=== PATIENT | female | born 1940 | race Caucasian/White ===

== ENCOUNTER 2017-08-02 02:12 | Inpatient (IN) | payer OTHER ==
[~2017-08-02] VITALS: Ht 144.8 cm; Wt 51.4 kg
[~2017-08-02 02:12] MED LIST: CARDURA1 M1 PO; CLONIDINE HCL0.3 M1 PO; COREG3.125 MG PO; CRESTOR20 M2 PO; ELIQUIS2.5 M1 PO; ISOSORBIDE MON120 M1 PO; LASIX20 M1 PO; NORVASC10 M1 PO; PLAQUENIL200 M1 PO; PROTONIX40 M3 PO; VALSARTAN160 M1 PO
--- NOTE | 2017-08-02 11:17 | Operative Report ---
Operative/Inv Procedure Report Surgery Date: 08/02/17 Name of Procedure: Left carotid thromboendarterectomy with bovine patch angioplasty Pre-Operative Diagnosis: Asymptomatic high-grade bilateral carotid artery stenosis Post-Operative Diagnosis: Same Estimated Blood Loss: less than 50ml Surgeon/Drier Transfer Car Operator: Eduardo Mcfarlane MD, Huribal MD, Marsel Anesthesia: general endotracheal tube Implants: Bovine pericardial patch Complications: Patient transported neurologically intact to PACU -with elevation in blood pressure Condition: Stable to PACU Operative Indication: This is a 77-year-old female with past medical history significant for hypertension and bilateral carotid stenosis. She is here for left carotid endarterectomy. The patient is right-handed. She denies any focal neurologic events recently. Risk benefits and alternatives were explained to the patient including bleeding infection plane stroke and and neurologic/nerve injury. She decide to proceed with the procedure and consented after these risks were explained to her. Operative/Procedure Note Note: The patient was transported to the recovery room and laid supine on the table. After adequate anesthesia, IV lines, a timeout was held in accordance with [facility] policy. Of note a second surgeon was required due to the lack of suitable resident's/PA and the comorbidity of this patient's bilateral carotid disease. Attention was first turned to cervical block. This had been placed by the anesthesia department. Using a 15 blade and bovie electrocautery/dissection was carried down through the skin and subcutaneous tissue to the level of the carotid sheath. During this time the patient was noted to be extremely hypertensive and began to feel nauseous. Due to her discomfort the decision was made to convert her to general anesthesia. This was done expeditiously and the case proceeded. Once the dissection had been carried out the patient was bolused with 5000 units of heparin. The common carotid, external carotid, and internal carotid were circumferentially dissected free and controlled. The artery was sequentially clamped and the blood pressure was kept at 170 mmHg during the endarterectomy stage. The artery was then opened with an 11 blade and Paez scissors. Backbleeding from the internal carotid artery was noted to be excellent. Using a Dunlevy elevator the plaque was elevated and excised from the field. It was passed off as specimen. Attention was now turned to closure of the artery. Intimal debris was removed with ring forceps and the Dunlevy elevator. Heparin saline was used to irrigate the artery. A bovine pericardial patch was then brought into the surgical area and sewn on the anterior surface of the artery. A running 6-0 Prolene suture was used in a circumferential manner and tied down sequentially. All occluding clamps were removed and the artery was properly flushed. Good pulsatile flow was now confirmed into the distal ICA by Doppler. 3 single Prolene sutures were used for hemostasis. Gelfoam and thrombin as well as FloSeal were used to gain hemostasis. The wound was copiously irrigated with saline solution. The wound was then closed in layers with 2-0 and 3-0 Vicryl sutures. The skin was closed with skin priscila. The patient tolerated the procedure well and was transported to the recovery area in stable awake and alert. The sponge needle instrument counts were correct and cardiology will be consult due to the patient's blood pressure control. CC: Reid WELLS,Tom Monk; Jorge Luis Harris MD
[2017-08-02 12:00] VITALS: BP 200/66
--- NOTE | 2017-08-02 12:32 | Cons- Cardiology ---
General Information and HPI Consulting Request Date of Consult: 08/02/17 Requested By: Eduardo Mcfarlane MD Reason for Consult: uncontrolled hypertension History of Present Illness: the patient is a 77-year-old female with history of hypertension, paroxysmal atrial fibrillation, HFpEF, and sinus bradycardia who is status post left carotid thromboendarterectomy with bovine patch angioplasty. She has a 6 history of severe hypertension on multiple medications. Postoperatively she was noted to have significant hypertension with systolic blood pressure of 200. She took her normal p.o. medications this morning before surgery. She was started on a nitroglycerin drip in the PACU, and was transferred to the intensive care unit. She reports that she is feeling well. No chest pain. No palpitations. No lightheadedness or dizziness. No nausea or vomiting. No diaphoresis. Allergies/Medications Allergies: Coded Allergies: diltiazem (From CARDIZEM) (UNKNOWN 07/30/17) dronedarone (From MULTAQ) (SEVERE DIARRHEA 07/30/17) hydralazine (LUPUS 07/30/17) lisinopril (TONGUE SWELLING 07/30/17) rivaroxaban (From XARELTO) (UNKNOWN 07/30/17) minoxidil (HIRSUTISM 08/08/17) Home Med List: Amlodipine Besylate (Norvasc) 10 MG TABLET 1 TAB PO DAILY HTN (Reported) Apixaban (Eliquis) 2.5 MG TABLET 1 TAB PO BID ANTICOAG (Reported) Carvedilol (Coreg) 3.125 MG TABLET 1 TAB PO BID CARDIAC (Reported) Clonidine HCl 0.3 MG TABLET 1 TAB PO BID HTN (Reported) Doxazosin (Cardura) 1 MG TABLET 2 TAB PO BID HTN (Reported) Furosemide (Lasix) 20 MG TABLET 1 TAB PO DAILY DIURETIC (Reported) Furosemide (Lasix) 40 MG TABLET 40 MG PO DAILY DIURETIC PER DR. HOLLIDAY Hydroxychlorquine (Plaquenil) 200 MG TABLET 1 TAB PO DAILY LUPUS (Reported) Isosorbide Mononitrate (Isosorbide Mononitrate ER) 120 MG TAB.ER.24H 1 TAB PO DAILY HTN (Reported) Minoxidil 2.5 MG TABLET 2.5 MG PO DAILY htn PER DR. HOLLIDAY Pantoprazole Sodium (Protonix) 40 MG TABLET.DR 1 TAB PO DAILY GERD (Reported) Rosuvastatin Calcium (Crestor) 20 MG TABLET 1 TAB PO DAILY CHOLESTEROL ( Reported) Sertraline HCl (Zoloft) 25 MG TABLET 1 TAB PO DAILY DEP (Reported) Valsartan 160 MG TABLET 1 TAB PO BID HTN (Reported) Current Medications: Current Medications Sig/Antoinette Start time Last Medication Dose Route Stop Time Status Admin Acetaminophen 1,000 MG Q6 08/02 1200 AC 08/02 IV 08/03 0601 1327 Amlodipine Besylate 10 MG DAILY 08/03 1000 DC PO Amlodipine Besylate 10 MG DAILY 08/03 1000 AC PO Apixaban 2.5 MG BID 08/03 1000 DC PO Apixaban 2.5 MG BID 08/03 1000 AC PO Aspirin 300 MG ONCE ONE 08/02 1115 DC 08/02 UT 08/02 1116 1200 Aspirin Buffered 325 MG DAILY 08/03 1000 CAN PO Atorvastatin Calcium 80 MG 1700 08/02 1700 DC PO Atorvastatin Calcium 80 MG 1700 08/02 1700 AC 08/02 PO 1720 Carvedilol 3.125 MG BID 08/02 2200 DC PO Carvedilol 3.125 MG BID 08/02 2200 AC PO Clonidine 0.3 MG QPM 08/02 2200 DC PO Clonidine 0.3 MG QPM 08/02 2200 DC PO Clonidine 0.3 MG BID 08/02 2200 DC PO Clonidine 0.3 MG BID 08/02 1815 UNVr PO Dexmedetomidine HCl 200 MCG .STK-MED ONE 08/02 0646 DC IV 08/02 0647 Doxazosin Mesylate 1 MG QPM 08/02 2200 DC PO Doxazosin Mesylate 1 MG QPM 08/02 2200 DC PO Doxazosin Mesylate 2 MG BID 08/02 2200 DC PO Doxazosin Mesylate 2 MG BID 08/02 1815 UNVr PO Fentanyl Citrate 200 MCG .STK-MED ONE 08/02 0855 DC IM 08/02 0856 Fentanyl Citrate 100 MCG .STK-MED ONE 08/02 0645 DC IM 08/02 0646 Furosemide 20 MG DAILY 08/03 1000 DC PO Furosemide 20 MG DAILY 08/03 1000 AC PO Hydroxychloroquine 200 MG BID 08/02 2200 DC Sulfate PO Hydroxychloroquine 200 MG BID 08/02 2200 DC Sulfate PO Hydroxychloroquine 200 MG DAILY 08/02 1515 AC 08/02 Sulfate PO 1720 Isosorbide 120 MG DAILY 08/03 1000 DC Mononitrate PO Isosorbide 120 MG DAILY 08/03 1000 AC Mononitrate PO Losartan Potassium 50 MG DAILY 08/03 1000 DC PO Losartan Potassium 50 MG DAILY 08/03 1000 DC PO Losartan Potassium 50 MG BID 08/03 1000 DC PO Losartan Potassium 50 MG BID 08/02 1815 UNVr PO Midazolam HCl 2 MG .STK-MED ONE 08/02 0645 DC IM 08/02 0646 Morphine Sulfate 2 MG Q2P PRN 08/02 1215 AC IV Nitroglycerin 25 MG Q24H 08/02 1215 AC 08/02 Dextrose/Water 250 ML IV 1333 Nitroglycerin 25 MG Q24H 08/02 1115 DC 08/02 Dextrose/Water 250 ML IV 1200 Omeprazole 40 MG DAILY AC 08/02 1507 AC 08/02 PO 1720 Ondansetron HCl 4 MG Q6P PRN 08/02 1215 AC IV Pantoprazole Sodium 40 MG DAILY 08/03 1000 DC IV Pantoprazole Sodium 40 MG DAILY 08/03 1000 CAN IV Sertraline HCl 25 MG DAILY 08/02 1515 AC 08/02 PO 1720 Sodium Chloride 1,000 ML Q20H 08/02 1215 AC 08/02 IV 1200 Review of Systems Review of Systems: No rash. No tremor. No melena. All other systems are reviewed and to be negative. Past History Family History Relations & Conditions If Any: MOTHER Stroke Psychosocial History Smoking Status: Unknown If Ever Smoked Exam & Diagnostic Data Vital Signs and I&O Vital Signs Date Time Temp Pulse Resp B/P B/P Pulse O2 O2 Flow FiO2 Mean Ox Delivery Rate 08/02 1200 97 Nasal 2.0L Cannula 08/02 1200 97.6 63 14 200/66 98 Nasal 2.0L Cannula Intake & Output 08/02 1600 08/02 0800 08/02 0000 08/01 1600 08/01 0800 08/01 0000 Intake Total Output Total Balance Patient 130 lb Weight Weight Bed scale Measurement Method Physical Exam: Gen: The patient is in no acute distress HEENT: Normal nose, ears, and oropharynx. Pupils equal bilaterally. Conjunctiva normal. Neck: Supple with no JVD, no masses, and no thyromegaly Lungs: Clear to auscultation with normal respiratory effort Heart: RRR, S1, S2, 1/6 systolic murmurs. No peripheral edema, 2+ pulses in the lower extremities bilaterally Abdomen: Soft, nontender, no masses. No hepatomegaly. No splenomegaly Extremities: No clubbing or cyanosis. Normal muscle strength in the upper and lower extremities. Skin: Normal skin turgor with no skin ulcers or lesions noted. Neuro: Cranial nerves intact. Sensation intact Psych: Alert and oriented 3 with appropriate affect Labs/Jamal Results: Labs July 30, 2017: Glucose 117, BUN 31, creatinine 3.1, sodium 143, potassium 3.6, chloride 104, CO2 28 Diagnostic Data EKG Results EKG tracing is independently reviewed, and reveals sinus bradycardia at 38, borderline T-wave abnormality Other Results echocardiogram March 29, 2017: Normal LV size and systolic function. LVEF 60 to 65%. Mild MR. Mild TR. Normal RV systolic pressure. Small circumferential pericardial effusion. Assessment/Plan Assessment/Plan The patient is a 77-year-old female with history of hypertension, paroxysmal atrial fibrillation, HFpEF, and asymptomatic sinus bradycardia. She is status post carotid endarterectomy, and is noted to have severely elevated blood pressure postoperatively. Recommendations: * Continue outpatient oral hypertension medications, and give evening dose earlier than scheduled. * Continue IV nitroglycerin, and titrate to systolic blood pressure less than 160 * Check basic metabolic profile and CBC. Consult Acknowledgment - Thank you for your consult request.
[2017-08-02] MEDS ORDERED: ZOLOFT25 M1 PO (15:06)
--- NOTE | 2017-08-02 15:34 | PN- Vascular Surgery ---
Subjective Subjective: POC neck soreness, hurts to swallow but no difficulty, family notes left facial droop. no cp/sob/n/v. +void. +po intake Objective Vital Signs and I&Os Vital Signs Date Time Temp Pulse Resp B/P B/P Pulse O2 O2 Flow FiO2 Mean Ox Delivery Rate 08/02 1200 97 Nasal 2.0L Cannula 08/02 1200 97.6 63 14 200/66 98 Nasal 2.0L Cannula Intake & Output 08/02 1600 08/02 0800 08/02 0000 08/01 1600 08/01 0800 08/01 0000 Intake Total Output Total Balance Patient 130 lb Weight Weight Bed scale Measurement Method Physical Exam: gen- nad neck- left dressing cdi, +edema, facial droop on left, ttp card-s1s2 pulm- ctab abd- soft nt ext- calves soft nt, moves all 4 extremities, strength equal bl, alps on Assessment/Plan Assessment/Plan A- POD L CEA, with mild left fascial droop likely due to intraop nerve retraction, with PMHx htn on multiple agents, with htn postop on nitro gtt now. P- icu monitoring. keep sbp <180. cont nitro gtt, home meds, fu cardiology recs prn pain meds home meds- reviewed w pt and family at length, adjusted doses eliquis oob as tolerated reg diet as tolerated am labs dc planning will dw attending Core Measures Venous Thromboembolism VTE Risk Factors Surgery No Mechanical VTE Prophylaxis d/t N/A MechProphylax Ordered No VTE Pharm Prophylaxis d/t NA PharmProphylax ordered
[2017-08-02 16:00] VITALS: BP 190/52
[2017-08-03] VITALS: BP 201/84
[2017-08-03 02:53] LABS: ABSOLUTE BASOPHIL COUNT 0 /CUMM (0.0-0.2); ABSOLUTE EOSINOPHIL COUNT 0.2 /CUMM (0.0-0.7); ABSOLUTE GRANULOCYTE CT 7.8 /CUMM (1.4-6.5); ABSOLUTE LYMPH COUNT 0.8 /CUMM (1.2-3.4); ABSOLUTE MONOCYTE COUNT 0.7 /CUMM (0.10-0.60); BASOPHIL % 0.2 % (0.0-2.0); EOSINOPHIL % 2.6 % (0-5); GRANULOCYTE % 81.4 % (42.2-75.2); HEMATOCRIT 29.3 % (37-47); MEAN CORPUSCULAR HGB 25.9 PG (27.0-31.0); MEAN CORPUSCULAR HGB CONC 32.1 G/DL (33.0-37.0); MEAN CORPUSCULAR VOLUME 80.9 FL (81.0-99.0); MEAN PLATELET VOLUME 9.3 FL (7.4-10.4); PLATELET COUNT 201 /CUMM (130-400); RED BLOOD CELL CT 3.63 /CUMM (4.20-5.40); WHITE BLOOD CELL COUNT 9.6 /CUMM (4.8-10.8)
--- NOTE | 2017-08-03 06:13 | PN- Vascular Surgery ---
Subjective Subjective: hypertensive overnight, maxed out on nitro gtt, some cp overnight- resolved. some pain at incision Objective Vital Signs and I&Os Vital Signs Date Time Temp Pulse Resp B/P B/P Pulse O2 O2 Flow FiO2 Mean Ox Delivery Rate 08/03 0541 73 191/49 08/03 0514 76 200/91 08/03 0400 96 Room Air 08/03 0021 98.7 08/03 0000 98.7 58 17 201/84 98 Nasal 2.0L Cannula 08/03 0000 98 Nasal 2.0L Cannula 08/02 2146 58 16 166/50 08/02 2000 100 Room Air 08/02 1847 58 16 190/70 08/02 1847 58 16 190/58 08/02 1600 100 Room Air 08/02 1600 98.3 48 16 190/52 100 Nasal 2.0L Cannula 08/02 1200 97 Nasal 2.0L Cannula 08/02 1200 97.6 63 14 200/66 98 Nasal 2.0L Cannula Intake & Output 08/03 0800 08/03 0000 08/02 1600 08/02 0800 08/02 0000 08/01 1600 Intake Total 1412 Output Total Balance 1412 Intake, IV 932 Intake, Oral 480 Patient 130 lb Weight Weight Bed scale Measurement Method Physical Exam: gen- nad card- s1s2 pulm- ctab neck- incision cdi, dressed. +palsy left face, ttp ext- calves soft nt bl Results Last 48 Hours of Labs: Laboratory Tests 08/03 08/03 08/03 0600 0500 0240 Chemistry Sodium (137 - 145 mmol/L) Cancelled 135 L Potassium (3.5 - 5.1 mmol/L) Cancelled 3.8 Chloride (98 - 107 mmol/L) Cancelled 102 Carbon Dioxide (22 - 30 mmol/L) Cancelled 24 Anion Gap (5 - 16) Cancelled 10 BUN (7 - 17 mg/dL) Cancelled 27 H Creatinine (0.5 - 1.0 mg/dL) Cancelled 2.9 H Estimated GFR (>60 ml/min) 16 L BUN/Creatinine Ratio Cancelled Glucose (65 - 99 mg/dL) 116 H Calcium (8.4 - 10.2 mg/dL) 8.1 L Phosphorus (2.5 - 4.5 mg/dL) 5.4 H Magnesium (1.6 - 2.3 mg/dL) 1.6 Total Bilirubin (0.2 - 1.3 mg/dL) 0.3 AST (14 - 36 U/L) 14 ALT (9 - 52 U/L) 22 Troponin I (< 0.11 ng/ml) 0.02 Albumin (3.5 - 5.0 g/dL) 2.9 L Hematology CBC w Diff Cancelled NO MAN DIFF REQ WBC (4.8 - 10.8 /CUMM) Cancelled 9.6 RBC (4.20 - 5.40 /CUMM) Cancelled 3.63 L Hgb (12.0 - 16.0 G/DL) Cancelled 9.4 L Hct (37 - 47 %) Cancelled 29.3 L MCV (81.0 - 99.0 FL) Cancelled 80.9 L MCH (27.0 - 31.0 PG) Cancelled 25.9 L MCHC (33.0 - 37.0 G/DL) Cancelled 32.1 L RDW (11.5 - 14.5 %) Cancelled 17.0 H Plt Count (130 - 400 /CUMM) Cancelled 201 MPV (7.4 - 10.4 FL) Cancelled 9.3 Gran % (42.2 - 75.2 %) 81.4 H Lymphocytes % (20.5 - 51.1 %) 8.9 L Monocytes % (1.7 - 9.3 %) 6.9 Eosinophils % (0 - 5 %) 2.6 Basophils % (0.0 - 2.0 %) 0.2 Absolute Granulocytes (1.4 - 6.5 /CUMM) 7.8 H Absolute Lymphocytes (1.2 - 3.4 /CUMM) 0.8 L Absolute Monocytes (0.10 - 0.60 /CUMM) 0.7 H Absolute Eosinophils (0.0 - 0.7 /CUMM) 0.2 Absolute Basophils (0.0 - 0.2 /CUMM) 0 Assessment/Plan Assessment/Plan A- POD1 sp L cea, hx htn with uncontrolled htn, now maxed on nitro gtt with SBP 190 P- -continue nitro gtt -home am po meds now (5 agents) -will jerman frias -prn pain control -eliquis -mandibular nerve palsy from or retraction, monitor -will jerman attending Core Measures Venous Thromboembolism VTE Risk Factors Surgery No Mechanical VTE Prophylaxis d/t N/A MechProphylax Ordered No VTE Pharm Prophylaxis d/t NA PharmProphylax ordered
[2017-08-03 08:00] VITALS: BP 200/80
--- NOTE | 2017-08-03 12:39 | PN- Cardiology ---
Subjective Subjective: The patient had a brief episode of chest pain overnight which resolved. Blood pressure remains elevated on IV nitroglycerin. No shortness of breath. No diaphoresis. No palpitations. No neurologic symptoms. Objective Vital Signs and I&Os Vital Signs Date Time Temp Pulse Resp B/P B/P Pulse O2 O2 Flow FiO2 Mean Ox Delivery Rate 08/03 0852 51 167/36 08/03 0952 51 165/39 08/03 0951 51 165/36 08/03 0827 58 200/80 08/03 0827 58 200/80 08/03 0800 99.0 56 19 200/80 92 Room Air 08/03 0541 73 191/49 08/03 0514 76 200/91 08/03 0400 96 Room Air 08/03 0021 98.7 08/03 0000 98.7 58 17 201/84 98 Nasal 2.0L Cannula 08/03 0000 98 Nasal 2.0L Cannula 08/02 2146 58 16 166/50 08/02 2000 100 Room Air 08/02 1847 58 16 190/70 08/02 1847 58 16 190/58 08/02 1600 100 Room Air 08/02 1600 98.3 48 16 190/52 100 Nasal 2.0L Cannula Intake & Output 08/03 1600 08/03 0800 08/03 0000 08/02 1600 08/02 0800 08/02 0000 Intake Total 1350 1412 Output Total 150 Balance 1200 1412 Intake, IV 1230 932 Intake, Oral 120 480 Number 0 Bowel Movements Output, Urine 150 Patient 130 lb Weight Weight Bed scale Measurement Method Physical Exam: Gen: The patient is in no acute distress HEENT: Normal nose, ears, and oropharynx. Pupils equal bilaterally. Conjunctiva normal. Neck: Supple with no JVD, no masses, and no thyromegaly Lungs: Clear to auscultation with normal respiratory effort Heart: RRR, S1, S2, 1/6 systolic murmurs. No peripheral edema, 2+ pulses in the lower extremities bilaterally Abdomen: Soft, nontender, no masses. No hepatomegaly. No splenomegaly Extremities: No clubbing or cyanosis. Normal muscle strength in the upper and lower extremities. Skin: Normal skin turgor with no skin ulcers or lesions noted. Neuro: Cranial nerves intact. Sensation intact Current Medications: Current Medications Sig/Antoinette Start time Last Medication Dose Route Stop Time Status Admin Acetaminophen 1,000 MG Q6 08/02 1200 DC 08/03 IV 08/03 0601 0517 Amlodipine Besylate 10 MG DAILY 08/03 1000 DC PO Amlodipine Besylate 10 MG DAILY 08/03 1000 AC 08/03 PO 0952 Apixaban 2.5 MG BID 08/03 1000 DC PO Apixaban 2.5 MG BID 08/03 1000 AC 08/03 PO 0937 Aspirin Buffered 325 MG DAILY 08/03 1000 CAN PO Atorvastatin Calcium 80 MG 1700 08/02 1700 DC PO Atorvastatin Calcium 80 MG 1700 08/02 1700 AC 08/02 PO 1720 Carvedilol 3.125 MG BID 08/02 2200 DC PO Carvedilol 3.125 MG BID 08/02 2200 AC 08/03 PO 0952 Clonidine 0.3 MG QPM 08/02 2200 DC PO Clonidine 0.3 MG QPM 08/02 2200 DC PO Clonidine 0.3 MG BID 08/02 2200 DC PO Clonidine 0.3 MG BID 08/02 1815 AC 08/03 PO 0827 Doxazosin Mesylate 1 MG QPM 08/02 2200 DC PO Doxazosin Mesylate 1 MG QPM 08/02 2200 DC PO Doxazosin Mesylate 2 MG BID 08/02 2200 DC PO Doxazosin Mesylate 2 MG BID 08/02 1815 AC 08/03 PO 1155 Furosemide 20 MG DAILY 08/03 1000 DC PO Furosemide 20 MG DAILY 08/03 1000 AC 08/03 PO 0937 Hydroxychloroquine 200 MG BID 08/02 2200 DC Sulfate PO Hydroxychloroquine 200 MG BID 08/02 2200 DC Sulfate PO Hydroxychloroquine 200 MG DAILY 08/02 1515 AC 08/03 Sulfate PO 0938 Isosorbide 120 MG DAILY 08/03 1000 DC Mononitrate PO Isosorbide 120 MG DAILY 08/03 1000 AC 08/03 Mononitrate PO 0951 Losartan Potassium 50 MG DAILY 08/03 1000 DC PO Losartan Potassium 50 MG DAILY 08/03 1000 DC PO Losartan Potassium 50 MG BID 08/03 1000 DC PO Losartan Potassium 50 MG BID 08/02 1815 AC 08/03 PO 0827 Morphine Sulfate 2 MG Q2P PRN 08/03 0345 AC 08/03 IV 0334 Morphine Sulfate 2 MG Q2P PRN 08/02 1215 DC IV Nitroglycerin 25 MG Q4H 08/02 2300 AC 08/03 Dextrose/Water 250 ML IV 0645 Nitroglycerin 25 MG Q24H 08/02 1215 DC 08/02 Dextrose/Water 250 ML IV 08/02 2300 1333 Omeprazole 40 MG DAILY AC 08/02 1507 AC 08/03 PO 0541 Ondansetron HCl 4 MG Q6P PRN 08/02 1215 AC IV Pantoprazole Sodium 40 MG DAILY 08/03 1000 DC IV Pantoprazole Sodium 40 MG DAILY 08/03 1000 CAN IV Sertraline HCl 25 MG DAILY 08/02 1515 AC 08/03 PO 0938 Sodium Chloride 1,000 ML Q20H 08/02 1215 DC 08/02 IV 1200 Results Last 48 Hrs of Labs/Mics: Laboratory Tests 08/03/17 0600: CBC w Diff Cancelled, WBC Cancelled, RBC Cancelled, Hgb Cancelled, Hct Cancelled , MCV Cancelled, MCH Cancelled, MCHC Cancelled, RDW Cancelled, Plt Count Cancelled, MPV Cancelled 08/03/17 0500: Sodium Cancelled, Potassium Cancelled, Chloride Cancelled, Carbon Dioxide Cancelled, Anion Gap Cancelled, BUN Cancelled, Creatinine Cancelled, BUN/ Creatinine Ratio Cancelled 08/03/17 0240: Anion Gap 10, Estimated GFR 16 L, Glucose 116 H, Calcium 8.1 L, Phosphorus 5.4 H, Magnesium 1.6, Total Bilirubin 0.3, AST 14, ALT 22, Troponin I 0.02, Albumin 2.9 L, CBC w Diff NO MAN DIFF REQ, RBC 3.63 L, MCV 80.9 L, MCH 25.9 L, MCHC 32.1 L, RDW 17.0 H, MPV 9.3, Gran % 81.4 H, Lymphocytes % 8.9 L, Monocytes % 6.9, Eosinophils % 2.6, Basophils % 0.2, Absolute Granulocytes 7.8 H, Absolute Lymphocytes 0.8 L, Absolute Monocytes 0.7 H, Absolute Eosinophils 0.2, Absolute Basophils 0 Assessment/Plan Assessment/Plan 1. Paroxysmal atrial fibrillation 2. Chronic HFpEF 3. Status post carotid endarterectomy 4. Uncontrolled hypertension Plan: * Increase doxazosin to 4 mg p.o. twice daily * Continue amlodipine, Imdur, carvedilol, and clonidine. * Wean off IV nitroglycerin * If blood pressure continues to be elevated, increase clonidine to 0.6 mg p.o. twice daily * Continue telemetry? Yes
[2017-08-03 16:00] VITALS: BP 162/54
[2017-08-04] VITALS: BP 181/114
--- NOTE | 2017-08-04 07:55 | PN- Vascular Surgery ---
Subjective Subjective: pt asleep in bed, upon waking co mild right neck pain. denies cp, sob. denies palpitations. says she has a slight headache that comes and goes. pt seems frustrated that she cant go home. pt says she did not ambulate yesterday. Objective Vital Signs and I&Os Vital Signs Date Time Temp Pulse Resp B/P B/P Pulse O2 O2 Flow FiO2 Mean Ox Delivery Rate 08/04 0555 63 201/50 08/04 0000 98 Nasal 2.0L Cannula 08/04 0000 99.0 51 19 181/114 98 Nasal 2.0L Cannula 08/03 2300 60 188/48 08/03 2300 60 188/48 08/03 2300 60 188/48 08/03 1999 93 Room Air 08/03 1600 98.4 49 19 162/54 92 Room Air 08/03 0952 51 167/36 08/03 0952 51 165/39 08/03 0951 51 165/36 08/03 0827 58 200/80 08/03 0827 58 200/80 08/03 0800 99.0 56 19 200/80 92 Room Air Intake & Output 08/04 0800 08/04 0000 08/03 1600 08/03 0800 08/03 0000 08/02 1600 Intake Total 1015 1415 1350 1412 Output Total 200 150 Balance 815 1415 1200 1412 Intake, IV 274 391 2080 932 Intake, Oral 380 520 120 480 Number 0 0 0 Bowel Movements Output, Urine 200 150 Patient 130 lb Weight Weight Bed scale Measurement Method Physical Exam: gen- nad, resting comfortably neck- minimal swelling and ecchymosis around left neck wound. priscila in place, no signs of infection. dressing changed. Current Medications: Current Medications Sig/Antoinette Start time Last Medication Dose Route Stop Time Status Admin Amlodipine Besylate 10 MG DAILY 08/03 1000 DC PO Amlodipine Besylate 10 MG DAILY 08/03 1000 AC 08/03 PO 0952 Apixaban 2.5 MG BID 08/03 1000 DC PO Apixaban 2.5 MG BID 08/03 1000 AC 08/03 PO 2300 Atorvastatin Calcium 80 MG 1700 08/02 1700 AC 08/03 PO 1805 Benzocaine/Menthol 1 ANDREA Q2P PRN 08/03 2014 AC PO Carvedilol 3.125 MG BID 08/02 2200 AC 08/03 PO 2300 Clonidine 0.6 MG BID 08/03 2200 AC 08/04 PO 0555 Clonidine 0.3 MG BID 08/02 1815 DC 08/03 PO 0827 Doxazosin Mesylate 4 MG BID 08/03 2200 AC 08/03 PO 2300 Doxazosin Mesylate 2 MG ONCE ONE 08/03 1245 DC PO 08/03 1246 Doxazosin Mesylate 2 MG BID 08/02 1815 DC 08/03 PO 1155 Furosemide 20 MG DAILY 08/03 1000 DC PO Furosemide 20 MG DAILY 08/03 1000 AC 08/03 PO 0937 Glycerin 2 SPRAY Q2P PRN 08/03 2130 AC 08/03 PO 2310 Hydroxychloroquine 200 MG DAILY 08/02 1515 08/03 Sulfate PO 0938 Isosorbide 120 MG DAILY 08/03 1000 DC Mononitrate PO Isosorbide 120 MG DAILY 08/03 1000 AC 08/03 Mononitrate PO 0951 Losartan Potassium 50 MG DAILY 08/03 1000 DC PO Losartan Potassium 50 MG BID 08/02 1815 AC 08/03 PO 2300 Magnesium Oxide 400 MG DAILY 08/03 1643 AC 08/03 PO 1806 Morphine Sulfate 2 MG Q2P PRN 08/03 0345 AC 08/03 IV 0334 Nitroglycerin 25 MG Q3H 08/03 1400 AC 08/04 Dextrose/Water 250 ML IV 0515 Nitroglycerin 25 MG Q4H 08/02 2300 DC 08/03 Dextrose/Water 250 ML IV 0645 Omeprazole 40 MG DAILY AC 08/02 1507 AC 08/04 PO 0556 Ondansetron HCl 4 MG Q6P PRN 08/02 1215 AC IV Pantoprazole Sodium 40 MG DAILY 08/03 1000 DC IV Sertraline HCl 25 MG DAILY 08/02 1515 08/03 PO 0938 Sodium Chloride 1,000 ML Q20H 08/02 1215 DC 08/02 IV 1200 Results Last 48 Hours of Labs: Laboratory Tests 08/04 08/03 08/03 0410 0600 0500 Chemistry Sodium (137 - 145 mmol/L) 131 L Cancelled Potassium (3.5 - 5.1 mmol/L) 3.7 Cancelled Chloride (98 - 107 mmol/L) 99 Cancelled Carbon Dioxide (22 - 30 mmol/L) 23 Cancelled Anion Gap (5 - 16) 10 Cancelled BUN (7 - 17 mg/dL) 25 H Cancelled Creatinine (0.5 - 1.0 mg/dL) 2.6 H Cancelled Estimated GFR (>60 ml/min) 18 L BUN/Creatinine Ratio (7 - 25 %) 9.6 Cancelled Magnesium (1.6 - 2.3 mg/dL) 1.7 Hematology CBC w Diff Cancelled WBC Cancelled RBC Cancelled Hgb Cancelled Hct Cancelled MCV Cancelled MCH Cancelled MCHC Cancelled RDW Cancelled Plt Count Cancelled MPV Cancelled 08/03 0240 Chemistry Sodium (137 - 145 mmol/L) 135 L Potassium (3.5 - 5.1 mmol/L) 3.8 Chloride (98 - 107 mmol/L) 102 Carbon Dioxide (22 - 30 mmol/L) 24 Anion Gap (5 - 16) 10 BUN (7 - 17 mg/dL) 27 H Creatinine (0.5 - 1.0 mg/dL) 2.9 H Estimated GFR (>60 ml/min) 16 L Glucose (65 - 99 mg/dL) 116 H Calcium (8.4 - 10.2 mg/dL) 8.1 L Phosphorus (2.5 - 4.5 mg/dL) 5.4 H Magnesium (1.6 - 2.3 mg/dL) 1.6 Total Bilirubin (0.2 - 1.3 mg/dL) 0.3 AST (14 - 36 U/L) 14 ALT (9 - 52 U/L) 22 Troponin I (< 0.11 ng/ml) 0.02 Albumin (3.5 - 5.0 g/dL) 2.9 L Hematology CBC w Diff NO MAN DIFF REQ WBC (4.8 - 10.8 /CUMM) 9.6 RBC (4.20 - 5.40 /CUMM) 3.63 L Hgb (12.0 - 16.0 G/DL) 9.4 L Hct (37 - 47 %) 29.3 L MCV (81.0 - 99.0 FL) 80.9 L MCH (27.0 - 31.0 PG) 25.9 L MCHC (33.0 - 37.0 G/DL) 32.1 L RDW (11.5 - 14.5 %) 17.0 H Plt Count (130 - 400 /CUMM) 201 MPV (7.4 - 10.4 FL) 9.3 Gran % (42.2 - 75.2 %) 81.4 H Lymphocytes % (20.5 - 51.1 %) 8.9 L Monocytes % (1.7 - 9.3 %) 6.9 Eosinophils % (0 - 5 %) 2.6 Basophils % (0.0 - 2.0 %) 0.2 Absolute Granulocytes (1.4 - 6.5 /CUMM) 7.8 H Absolute Lymphocytes (1.2 - 3.4 /CUMM) 0.8 L Absolute Monocytes (0.10 - 0.60 /CUMM) 0.7 H Absolute Eosinophils (0.0 - 0.7 /CUMM) 0.2 Absolute Basophils (0.0 - 0.2 /CUMM) 0 Assessment/Plan Assessment/Plan A- POD2 sp L cea, hx htn with uncontrolled htn, now on nitro gtt with SBP 200. tried to wean nitro yesterday evening how P- -continue nitro gtt for now -regular home meds, now maxing out oral bp meds -will jerman frias other options for weaning nitro gtt -prn pain control -eliquis -will jerman attending encourage ambulation and IS Core Measures Venous Thromboembolism VTE Risk Factors Surgery No Mechanical VTE Prophylaxis d/t N/A MechProphylax Ordered No VTE Pharm Prophylaxis d/t NA PharmProphylax ordered
[2017-08-04 08:00] VITALS: BP 180/80
--- NOTE | 2017-08-04 10:56 | PN- Cardiology ---
Subjective Subjective: Clinically stable. Remains hypertensive. Episodic chest discomfort noted without significant ECG changes. Objective Vital Signs and I&Os Vital Signs Date Time Temp Pulse Resp B/P B/P Pulse O2 O2 Flow FiO2 Mean Ox Delivery Rate 08/04 921 51 195/50 08/04 0922 50 195/50 08/04 0922 48 195/50 08/04 0921 187/48 08/04 0800 97.5 47 13 180/80 94 Room Air 08/04 0555 63 201/50 08/04 0400 98 Room Air 08/04 0000 98 Nasal 2.0L Cannula 08/04 0000 99.0 51 19 181/114 98 Nasal 2.0L Cannula 08/03 2300 60 188/48 08/03 2300 60 188/48 08/03 2300 60 188/48 08/03 2000 93 Room Air 08/03 1600 98.4 49 19 162/54 92 Room Air Intake & Output 08/04 1600 08/04 0800 08/04 0000 08/03 1600 08/03 0800 08/03 0000 Intake Total 464 1015 1415 1350 1412 Output Total 200 150 Balance 253 227 1008 1200 1412 Intake, IV 344 701 550 9186 932 Intake, Oral 120 380 520 120 480 Number 0 0 0 0 Bowel Movements Output, Urine 200 150 Current Medications: Current Medications Sig/Antoinette Start time Last Medication Dose Route Stop Time Status Admin Amlodipine Besylate 10 MG DAILY 08/03 1000 AC 08/04 PO 0922 Apixaban 2.5 MG BID 08/03 1000 AC 08/04 PO 0922 Atorvastatin Calcium 80 MG 1700 08/02 1700 AC 08/03 PO 1805 Benzocaine/Menthol 1 ANDREA Q2P PRN 08/03 2014 AC PO Carvedilol 3.125 MG BID 08/02 2199 AC 08/04 PO 0922 Clonidine 0.6 MG BID 08/03 2199 AC 08/04 PO 0555 Clonidine 0.3 MG BID 08/02 1815 DC 08/03 PO 08 Doxazosin Mesylate 4 MG BID 08/03 2199 AC 08/04 PO 0922 Doxazosin Mesylate 2 MG ONCE ONE 08/03 1245 DC PO 08/03 1246 Doxazosin Mesylate 2 MG BID 08/02 1815 DC 08/03 PO 1155 Furosemide 20 MG DAILY 08/03 1000 AC 08/04 PO 0922 Glycerin 2 SPRAY Q2P PRN 08/03 2130 AC 08/03 PO 2310 Hydroxychloroquine 200 MG DAILY 08/02 1515 AC 08/04 Sulfate PO 0922 Isosorbide 120 MG DAILY 08/03 1000 AC 08/04 Mononitrate PO 0921 Losartan Potassium 50 MG BID 08/02 1815 AC 08/04 PO 0922 Magnesium Oxide 400 MG DAILY 08/03 1643 AC 08/04 PO 0922 Morphine Sulfate 2 MG Q2P PRN 08/03 0345 AC 08/03 IV 0334 Nitroglycerin 25 MG Q3H 08/03 1400 AC 08/04 Dextrose/Water 250 ML IV 0922 Nitroglycerin 25 MG Q4H 08/02 2300 DC 08/03 Dextrose/Water 250 ML IV 0645 Omeprazole 40 MG DAILY AC 08/02 1507 AC 08/04 PO 0556 Ondansetron HCl 4 MG Q6P PRN 08/02 1215 IV Sertraline HCl 25 MG DAILY 08/02 1515 AC 08/04 PO 0922 Results Last 48 Hrs of Labs/Mics: Laboratory Tests 08/04/17 0410: Anion Gap 10, Estimated GFR 18 L, BUN/Creatinine Ratio 9.6, Magnesium 1.7 08/03/17 0600: CBC w Diff Cancelled, WBC Cancelled, RBC Cancelled, Hgb Cancelled, Hct Cancelled , MCV Cancelled, MCH Cancelled, MCHC Cancelled, RDW Cancelled, Plt Count Cancelled, MPV Cancelled 08/03/17 0500: Sodium Cancelled, Potassium Cancelled, Chloride Cancelled, Carbon Dioxide Cancelled, Anion Gap Cancelled, BUN Cancelled, Creatinine Cancelled, BUN/ Creatinine Ratio Cancelled 08/03/17 0240: Anion Gap 10, Estimated GFR 16 L, Glucose 116 H, Calcium 8.1 L, Phosphorus 5.4 H, Magnesium 1.6, Total Bilirubin 0.3, AST 14, ALT 22, Troponin I 0.02, Albumin 2.9 L, CBC w Diff NO MAN DIFF REQ, RBC 3.63 L, MCV 80.9 L, MCH 25.9 L, MCHC 32.1 L, RDW 17.0 H, MPV 9.3, Gran % 81.4 H, Lymphocytes % 8.9 L, Monocytes % 6.9, Eosinophils % 2.6, Basophils % 0.2, Absolute Granulocytes 7.8 H, Absolute Lymphocytes 0.8 L, Absolute Monocytes 0.7 H, Absolute Eosinophils 0.2, Absolute Basophils 0 Microbiology 08/02 1200 UPPER RESP: Surveillance Culture - COMP 08/02 1200 GI: Surveillance Culture - COMP Assessment/Plan Assessment/Plan Assessment: 1. Paroxysmal atrial fibrillation 2. Chronic HFpEF 3. Status post carotid endarterectomy 4. Uncontrolled hypertension 5. Chest discomfort Recommendations: - COntinue current medication - Titrate IV TNG to BP - Nephrology consult - Obtain records from Dr. Morrison's office for review. - ECG now - Check troponin x 2 - Further med changes after Renal input. Continue telemetry? Yes
--- NOTE | 2017-08-04 12:28 | Cons- CRCU ---
Adeline Stover 08/04/17 1228: General Information and HPI Consulting Request Date of Consult: 08/04/17 Requested By: Dr. 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 Currently complaining of mild chest pain nonradiating and associated with some nausea. Pain and subsided after administration of sublingual nitroglycerin Denies fever, chills, palpitations, dizziness, diaphoresis, abdominal pain. Allergies/Medications Allergies: Coded Allergies: diltiazem (From CARDIZEM) (UNKNOWN 07/30/17) dronedarone (From MULTAQ) (SEVERE DIARRHEA 07/30/17) hydralazine (LUPUS 07/30/17) lisinopril (TONGUE SWELLING 07/30/17) minoxidil (UNKNOWN 07/30/17) rivaroxaban (From XARELTO) (UNKNOWN 07/30/17) Home Med List: Amlodipine Besylate (Norvasc) 10 MG TABLET 1 TAB PO DAILY HTN (Reported) Apixaban (Eliquis) 2.5 MG TABLET 1 TAB PO BID ANTICOAG (Reported) Carvedilol (Coreg) 3.125 MG TABLET 1 TAB PO BID CARDIAC (Reported) Clonidine HCl 0.3 MG TABLET 1 TAB PO BID HTN (Reported) Doxazosin (Cardura) 1 MG TABLET 2 TAB PO BID HTN (Reported) Furosemide (Lasix) 20 MG TABLET 1 TAB PO DAILY DIURETIC (Reported) Hydroxychlorquine (Plaquenil) 200 MG TABLET 1 TAB PO DAILY LUPUS (Reported) Isosorbide Mononitrate (Isosorbide Mononitrate ER) 120 MG TAB.ER.24H 1 TAB PO DAILY HTN (Reported) Pantoprazole Sodium (Protonix) 40 MG TABLET.DR 1 TAB PO DAILY GERD (Reported) Rosuvastatin Calcium (Crestor) 20 MG TABLET 1 TAB PO DAILY CHOLESTEROL ( Reported) Sertraline HCl (Zoloft) 25 MG TABLET 1 TAB PO DAILY DEP (Reported) Valsartan 160 MG TABLET 1 TAB PO BID HTN (Reported) Current Medications: Current Medications Sig/Antoinette Start time Last Medication Dose Route Stop Time Status Admin Amlodipine Besylate 10 MG DAILY 08/03 1000 AC 08/04 PO 0922 Apixaban 2.5 MG BID 08/03 1000 AC 08/04 PO 0922 Atorvastatin Calcium 80 MG 1700 08/02 1700 AC 08/03 PO 1805 Benzocaine/Menthol 1 ANDREA Q2P PRN 08/03 2015 AC PO Carvedilol 3.125 MG BID 08/02 2200 AC 08/04 PO 0922 Clonidine 0.6 MG BID 08/03 2200 AC 08/04 PO 0555 Clonidine 0.3 MG BID 08/02 1815 MA 08/03 PO 0827 Doxazosin Mesylate 4 MG BID 08/03 2200 AC 08/04 PO 0922 Furosemide 20 MG DAILY 08/03 1000 AC 08/04 PO 0922 Glycerin 2 SPRAY Q2P PRN 08/03 2130 AC 08/03 PO 2310 Hydroxychloroquine 200 MG DAILY 08/02 1515 08/04 Sulfate PO 0922 Isosorbide 120 MG DAILY 08/03 1000 AC 08/04 Mononitrate PO 0921 Losartan Potassium 50 MG BID 08/02 1815 AC 08/04 PO 0922 Magnesium Oxide 400 MG DAILY 08/03 1643 AC 08/04 PO 0922 Morphine Sulfate 2 MG Q2P PRN 08/03 0345 AC 08/03 IV 0334 Nitroglycerin 25 MG Q3H 08/03 1400 AC 08/04 Dextrose/Water 250 ML IV 0922 Nitroglycerin 25 MG Q4H 08/02 2300 MA 08/03 Dextrose/Water 250 ML IV 0645 Omeprazole 40 MG DAILY AC 08/02 1507 AC 08/04 PO 0556 Ondansetron HCl 4 MG Q6P PRN 08/02 1215 AC IV Phenol 2 SPRAY Q2P PRN 08/04 1115 AC EXT Sertraline HCl 25 MG DAILY 08/02 1515 08/04 PO 0922 Review of Systems Review of Systems Constitutional: Denies: chills, diaphoresis, fever, malaise, weakness, unexplained weight loss. Cardiovascular: Reports: chest pain. Denies: edema, orthopena, palpitations, peripheral edema, syncope. Respiratory: Denies: cough, hemoptysis, orthopnea, short of breath, sputum production, stridor, wheezing. GI: Denies: abdominal pain, bloating, constipation, diarrhea, distention, bowel incontinence, melena, nausea, bloody stool, changes in stool, vomiting, steatorrhea. Genitourinary: Denies: discharge, dysuria, frequency, hematuria, hesitation, nocturia, pain, urgency. Past History Medical History Blood Transfusion Hx: Yes Neurological: LUMBOSACRAL NEURITIS MACULAR EDEMA EENT: cataracts Cardiovascular: AFIB, CAD, hypertension, hyperlipidemia, PVD, ANEMIA Respiratory: COPD Gastrointestinal: GERD, POLYPS Hepatic: NONE Renal: chronic kidney disease Musculoskeletal: chronic back pain, gout, rheumatoid arthritis Psychiatric: NONE Endocrine: LUPUS Blood Disorders: anemia Cancer(s): NONE CONTRACT MODELER/Reproductive: NONE Surgical History Surgical History: BILAT KNEE REPLACEMENT PARTIAL LEFT SHOULDER REPLACEMENT ANGIOPLASTY RLE CATARACT EXTRACTION Family History Relations & Conditions If Any: MOTHER Stroke Psychosocial History Where Do You Live? Home Services at Home: Nursing Smoking Status: Former Smoker Exam & Diagnostic Data Last 24 Hrs of Vital Signs/I&O Vital Signs Date Time Temp Pulse Resp B/P B/P Pulse O2 O2 Flow FiO2 Mean Ox Delivery Rate 08/04 0922 51 195/50 08/04 0922 50 195/50 08/04 0922 48 195/50 08/04 0921 187/48 08/04 0800 97.5 47 13 180/80 94 Room Air 08/04 0555 63 201/50 08/04 0400 98 Room Air 08/04 0000 98 Nasal 2.0L Cannula 08/04 0000 99.0 51 19 181/114 98 Nasal 2.0L Cannula 08/03 2300 60 188/48 08/03 2300 60 188/48 08/03 2300 60 188/48 08/03 2000 93 Room Air 08/03 1600 98.4 49 19 162/54 92 Room Air Intake & Output 08/04 1600 08/04 0800 08/04 0000 Intake Total 464 1015 Output Total 200 Balance 464 815 Intake, IV 344 635 Intake, Oral 120 380 Number 0 0 Bowel Movements Output, Urine 200 Physical Exam General Appearance: alert, awake, comfortable Neck: supple Respiratory: normal breath sounds, lungs clear Cardiovascular: regular rate/rhythm, bradycardia, systolic murmur Extremities: no edema Last 48 Hrs of Labs/Jamal: Laboratory Tests 08/04/17 1138: Troponin I < 0.01 08/04/17 0410: Anion Gap 10, Estimated GFR 18 L, BUN/Creatinine Ratio 9.6, Magnesium 1.7 08/03/17 0600: CBC w Diff Cancelled, WBC Cancelled, RBC Cancelled, Hgb Cancelled, Hct Cancelled , MCV Cancelled, MCH Cancelled, MCHC Cancelled, RDW Cancelled, Plt Count Cancelled, MPV Cancelled 08/03/17 0500: Sodium Cancelled, Potassium Cancelled, Chloride Cancelled, Carbon Dioxide Cancelled, Anion Gap Cancelled, BUN Cancelled, Creatinine Cancelled, BUN/ Creatinine Ratio Cancelled 08/03/17 0240: Anion Gap 10, Estimated GFR 16 L, Glucose 116 H, Calcium 8.1 L, Phosphorus 5.4 H, Magnesium 1.6, Total Bilirubin 0.3, AST 14, ALT 22, Troponin I 0.02, Albumin 2.9 L, CBC w Diff NO MAN DIFF REQ, RBC 3.63 L, MCV 80.9 L, MCH 25.9 L, MCHC 32.1 L, RDW 17.0 H, MPV 9.3, Gran % 81.4 H, Lymphocytes % 8.9 L, Monocytes % 6.9, Eosinophils % 2.6, Basophils % 0.2, Absolute Granulocytes 7.8 H, Absolute Lymphocytes 0.8 L, Absolute Monocytes 0.7 H, Absolute Eosinophils 0.2, Absolute Basophils 0 Diagnostic Data EKG Results Normal sinus rhythm, bradycardia, nonspecific ST-T wave flattening in lateral leads Assessment/Plan CRCU Impression/Plan: 77-year-old woman former smoker with past medical history history of an NSTEMI 2015 labile hypertension on multiple medications, paroxysmal atrial fibrillation , HFpEF, PAD, tachybradycardia syndrome, GERD, CKD stage V secondary to hypertensive nephrosclerosis diagnosed in 2008, iron deficiency anemia, history of ulcerative esophagus without bleeding, 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 Previous EKGs reported as sinus ariel with nonspecific ST-T wave changes Nuclear stress test done March 2016 negative for ischemia with normal myocardial perfusion imaging and EF of 73 and 76 % poststress and at rest respectively Echo done 03/29/2017 showed normal LV size EF of 60-65%, posterior mitral valve leaflet thickening and restriction, RVSP 32 mmHg, small circumferential pericardial effusion. Was recently hospitalized at for exacerbation of [facility] for diastolic heart failure at this hospitalization she was found to be bradycardic and her Coreg was decreased to 3.125 Problem list: Labile hypertension Tachybradycardia syndrome Paroxysmal Atrial fibrillation Angina CKD stage V Fe deficiency anemia Left CEA Plan: -continue to monitor in ICU -Incentive spirometry, daily weights, strict I's and O's -Continue with her home medications of Cardura, clonidine, Imdur, losartan, Coreg and Norvasc. IV nitroglycerin titrated for blood pressure and heart rate. Obtain renal artery Doppler to rule out renal artery stenosis -Her chest pain subsided with one-time dose of sublingual nitroglycerin. EKG showing bradycardia and nonspecific ST-T wave changes that were present in previous EKGs and troponin Troponin 0.01. Likely unstable angina, she does have history of angina. Will repeat troponin EKG around 5:30 PM. -Postop management of left CEA per surgery -Cardiology and neurology on board DVT PPX full code Thank you for your consult, will follow along with you Consult Acknowledgment - Thank you for your consult request. Brenda WELLS,[facility] 08/04/17 1422: Assessment/Plan CRCU Other Findings/Comments: Seen and examined independently Pt with multiple issues with labile htn with hypertensive urgency Cardio and renal htn on board Pt on max lina rx cont to monitor her bp RA ultrasound will follow Consult Acknowledgment - Thank you for your consult request.
--- NOTE | 2017-08-04 13:18 | Cons- Nephrology ---
General Information and HPI Consulting Request Date of Consult: 08/04/17 Requested By: Eduardo Mcfarlane MD History of Present Illness: This 77-year-old woman has a history of high blood pressure with chronic kidney disease. She also has a history of peripheral vascular disease. She is now 2 days status post a left carotid endarterectomy. Her serum creatinine today is 2.6. Os was a history of congestive heart failure. I believe that was with preserved EF. Her EF in March of last year was 60-65%. She has had issues with her kidney function since 2008. There is a mention as to whether or not she has renal artery stenosis. He the ritual no from 2008 there was mention of an MRI being ordered. Results are not available as of yet. She also was just hospitalized [facility] with the URI rapid atrial fibrillation as well stop this delayed her receiving the operation was performed on Wednesday. Otherwise no recent kidney stones or kidney infections. She does have a history of lupus or at least an overlap syndrome. Part of the lupus was attributed to the hydralazine that she was taking. She also is not tolerating that well. She was on Coreg 25 twice a day along with valsartan 160 mg a day. She also is on amlodipine 10 mg daily. Of note is there was some degree of proteinuria. Her renal failure was being itchy to her hypertension. Had no difficulty voiding. She's been using furosemide as needed at home. Allergies/Medications Allergies: Coded Allergies: diltiazem (From CARDIZEM) (UNKNOWN 07/30/17) dronedarone (From MULTAQ) (SEVERE DIARRHEA 07/30/17) hydralazine (LUPUS 07/30/17) lisinopril (TONGUE SWELLING 07/30/17) minoxidil (UNKNOWN 07/30/17) rivaroxaban (From XARELTO) (UNKNOWN 07/30/17) Home Med List: Amlodipine Besylate (Norvasc) 10 MG TABLET 1 TAB PO DAILY HTN (Reported) Apixaban (Eliquis) 2.5 MG TABLET 1 TAB PO BID ANTICOAG (Reported) Carvedilol (Coreg) 3.125 MG TABLET 1 TAB PO BID CARDIAC (Reported) Clonidine HCl 0.3 MG TABLET 1 TAB PO BID HTN (Reported) Doxazosin (Cardura) 1 MG TABLET 2 TAB PO BID HTN (Reported) Furosemide (Lasix) 20 MG TABLET 1 TAB PO DAILY DIURETIC (Reported) Hydroxychlorquine (Plaquenil) 200 MG TABLET 1 TAB PO DAILY LUPUS (Reported) Isosorbide Mononitrate (Isosorbide Mononitrate ER) 120 MG TAB.ER.24H 1 TAB PO DAILY HTN (Reported) Pantoprazole Sodium (Protonix) 40 MG TABLET.DR 1 TAB PO DAILY GERD (Reported) Rosuvastatin Calcium (Crestor) 20 MG TABLET 1 TAB PO DAILY CHOLESTEROL ( Reported) Sertraline HCl (Zoloft) 25 MG TABLET 1 TAB PO DAILY DEP (Reported) Valsartan 160 MG TABLET 1 TAB PO BID HTN (Reported) Current Medications: Current Medications Sig/Antoinette Start time Last Medication Dose Route Stop Time Status Admin Amlodipine Besylate 10 MG DAILY 08/03 1000 AC 08/04 PO 0922 Apixaban 2.5 MG BID 08/03 1000 AC 08/04 PO 0922 Atorvastatin Calcium 80 MG 1700 08/02 1700 AC 08/03 PO 1805 Benzocaine/Menthol 1 ANDREA Q2P PRN 08/03 2015 AC PO Carvedilol 3.125 MG BID 08/02 2200 AC 08/04 PO 0922 Clonidine 0.6 MG BID 08/03 2200 AC 08/04 PO 0555 Clonidine 0.3 MG BID 08/02 1815 DC 08/03 PO 0827 Doxazosin Mesylate 4 MG BID 08/03 2200 AC 08/04 PO 0922 Furosemide 20 MG DAILY 08/03 1000 AC 08/04 PO 0922 Glycerin 2 SPRAY Q2P PRN 08/03 2130 AC 08/03 PO 2310 Hydroxychloroquine 200 MG DAILY 08/02 1515 AC 08/04 Sulfate PO 0922 Isosorbide 120 MG DAILY 08/03 1000 AC 08/04 Mononitrate PO 0921 Losartan Potassium 50 MG BID 08/02 1815 AC 08/04 PO 0922 Magnesium Oxide 400 MG DAILY 08/03 1643 AC 08/04 PO 0922 Morphine Sulfate 2 MG Q2P PRN 08/03 0345 AC 08/03 IV 0334 Nitroglycerin 25 MG Q3H 08/03 1400 AC 08/04 Dextrose/Water 250 ML IV 0922 Nitroglycerin 25 MG Q4H 08/02 2300 DC 08/03 Dextrose/Water 250 ML IV 0645 Omeprazole 40 MG DAILY AC 08/02 1507 AC 08/04 PO 0556 Ondansetron HCl 4 MG Q6P PRN 08/02 1215 AC IV Phenol 2 SPRAY Q2P PRN 08/04 1115 AC EXT Sertraline HCl 25 MG DAILY 08/02 1515 AC 08/04 PO 0922 Past History Medical History Blood Transfusion Hx: Yes Neurological: LUMBOSACRAL NEURITIS MACULAR EDEMA EENT: cataracts Cardiovascular: AFIB, CAD, diastolic CHF, hypertension, hyperlipidemia, PVD, ANEMIA Respiratory: COPD Gastrointestinal: GERD, POLYPS Hepatic: NONE Renal: chronic kidney disease Musculoskeletal: chronic back pain, gout, rheumatoid arthritis, SLE with hydralazine Psychiatric: NONE Blood Disorders: anemia Cancer(s): NONE 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 Home Services at Home: Nursing Smoking Status: Former Smoker Exam & Diagnostic Data Vital Signs and I&O Vital Signs Date Time Temp Pulse Resp B/P B/P Pulse O2 O2 Flow FiO2 Mean Ox Delivery Rate 08/04 09 51 195/50 08/04 0922 50 195/50 08/04 0922 48 195/50 08/04 0921 187/48 08/04 0800 97.5 47 13 180/80 94 Room Air 08/04 0555 63 201/50 08/04 0400 98 Room Air 08/04 0000 98 Nasal 2.0L Cannula 08/04 0000 99.0 51 19 181/114 98 Nasal 2.0L Cannula 08/03 2300 60 188/48 08/03 2300 60 188/48 08/03 2300 60 188/48 08/03 1999 93 Room Air 08/03 1600 98.4 49 19 162/54 92 Room Air Intake & Output 08/04 1600 08/04 0400 08/03 1600 08/03 0400 08/02 1600 08/02 0400 Intake Total 464 1015 2765 1412 Output Total 200 150 Balance 051 465 9812 1412 Intake, IV 502 831 7280 932 Intake, Oral 120 380 640 480 Number 0 0 0 Bowel Movements Output, Urine 200 150 Patient 130 lb Weight Weight Bed scale Measurement Method Physical Exam General Appearance: well developed/nourished, no apparent distress, alert, awake , comfortable, obese Head: atraumatic, normal appearance, active bleeding Eyes: Bilateral: PERRL, EOMI. Ears, Nose, Throat: hearing grossly normal Neck: surgical wound left neck Respiratory: normal breath sounds, chest non-tender Cardiovascular: regular rate/rhythm Gastrointestinal: normal bowel sounds, soft, non-tender, no organomegaly Back: normal inspection, normal range of motion, no vertebral tenderness Extremities: normal inspection, normal capillary refill, normal range of motion Neurologic/Psych: slight left facial droop Cranial Nerves: normal hearing, normal speech Skin: intact, normal color, warm/dry Results Pertinent Lab Results: Laboratory Tests 08/04 08/04 08/03 08/03 1138 0410 0600 0500 Chemistry Sodium (137 - 145 mmol/L) 131 L Cancelled Potassium (3.5 - 5.1 mmol/L) 3.7 Cancelled Chloride (98 - 107 mmol/L) 99 Cancelled Carbon Dioxide (22 - 30 mmol/L) 23 Cancelled Anion Gap (5 - 16) 10 Cancelled BUN (7 - 17 mg/dL) 25 H Cancelled Creatinine (0.5 - 1.0 mg/dL) 2.6 H Cancelled Estimated GFR (>60 ml/min) 18 L BUN/Creatinine Ratio (7 - 25 %) 9.6 Cancelled Magnesium (1.6 - 2.3 mg/dL) 1.7 Troponin I Pending Hematology CBC w Diff Cancelled WBC Cancelled RBC Cancelled Hgb Cancelled Hct Cancelled MCV Cancelled MCH Cancelled MCHC Cancelled RDW Cancelled Plt Count Cancelled MPV Cancelled 08/03 0240 Chemistry Sodium (137 - 145 mmol/L) 135 L Potassium (3.5 - 5.1 mmol/L) 3.8 Chloride (98 - 107 mmol/L) 102 Carbon Dioxide (22 - 30 mmol/L) 24 Anion Gap (5 - 16) 10 BUN (7 - 17 mg/dL) 27 H Creatinine (0.5 - 1.0 mg/dL) 2.9 H Estimated GFR (>60 ml/min) 16 L Glucose (65 - 99 mg/dL) 116 H Calcium (8.4 - 10.2 mg/dL) 8.1 L Phosphorus (2.5 - 4.5 mg/dL) 5.4 H Magnesium (1.6 - 2.3 mg/dL) 1.6 Total Bilirubin (0.2 - 1.3 mg/dL) 0.3 AST (14 - 36 U/L) 14 ALT (9 - 52 U/L) 22 Troponin I (< 0.11 ng/ml) 0.02 Albumin (3.5 - 5.0 g/dL) 2.9 L Hematology CBC w Diff NO MAN DIFF REQ WBC (4.8 - 10.8 /CUMM) 9.6 RBC (4.20 - 5.40 /CUMM) 3.63 L Hgb (12.0 - 16.0 G/DL) 9.4 L Hct (37 - 47 %) 29.3 L MCV (81.0 - 99.0 FL) 80.9 L MCH (27.0 - 31.0 PG) 25.9 L MCHC (33.0 - 37.0 G/DL) 32.1 L RDW (11.5 - 14.5 %) 17.0 H Plt Count (130 - 400 /CUMM) 201 MPV (7.4 - 10.4 FL) 9.3 Gran % (42.2 - 75.2 %) 81.4 H Lymphocytes % (20.5 - 51.1 %) 8.9 L Monocytes % (1.7 - 9.3 %) 6.9 Eosinophils % (0 - 5 %) 2.6 Basophils % (0.0 - 2.0 %) 0.2 Absolute Granulocytes (1.4 - 6.5 /CUMM) 7.8 H Absolute Lymphocytes (1.2 - 3.4 /CUMM) 0.8 L Absolute Monocytes (0.10 - 0.60 /CUMM) 0.7 H Absolute Eosinophils (0.0 - 0.7 /CUMM) 0.2 Absolute Basophils (0.0 - 0.2 /CUMM) 0 Assessment/Plan Assessment/Recommendations Assessment: 1. Hypertension. Currently, she had Cardura added to her regimen at 4 mg twice a day. She has an allergy to hydralazine. There is reports in her records from [facility] that she is prone to tachybradycardia. She recently had her clonidine increased again. Clearly bradycardia may be of concern. She also had Imdur added today. With regards to a cause of her high blood pressure, in his original evaluation in 2008, Dr. Villa makes a note about the patient having an MRI of her renal arteries to assess whether not she has normal artery disease. Would not pursue that at this time terms of her reimaging the kidney arteries, instead we will seek to find if the study was ever done. With the Dr. Sanders meeting started yesterday and the Imdur beginning yesterday as well I would be hesitant to increase any of her medicines as of yet for fear that all of this will come to ahead shortly. 2. CKD-Stage 4 3. Anemia 4. Volume status? One of the issues with her poorly controlled blood pressure as an outpatient was when she was under diuresis. It may be helpful to raise her dose to 40 mg while she is here. Recommendations: 1. Continue with the Cardura for now. 2. Increase the furosemide to 40 mg a day 3. Strict I's and O's /daily weights 4. The other difficulty as there've been a number of medication changes. This makes this rather difficult to discern which medicine ought to be adjusted. We also be cognizant clonidine likewise can exacerbate bradycardia
[2017-08-04 16:00] VITALS: BP 178/76
[2017-08-05 05:05] LABS: ABSOLUTE BASOPHIL COUNT 0 /CUMM (0.0-0.2); ABSOLUTE EOSINOPHIL COUNT 0.3 /CUMM (0.0-0.7); ABSOLUTE GRANULOCYTE CT 5.8 /CUMM (1.4-6.5); ABSOLUTE LYMPH COUNT 0.8 /CUMM (1.2-3.4); ABSOLUTE MONOCYTE COUNT 0.6 /CUMM (0.10-0.60); BASOPHIL % 0.4 % (0.0-2.0); EOSINOPHIL % 3.5 % (0-5); GRANULOCYTE % 77.1 % (42.2-75.2); HEMATOCRIT 26.2 % (37-47); MEAN CORPUSCULAR HGB 26.6 PG (27.0-31.0); MEAN CORPUSCULAR HGB CONC 33.5 G/DL (33.0-37.0); MEAN CORPUSCULAR VOLUME 79.5 FL (81.0-99.0); MEAN PLATELET VOLUME 9.6 FL (7.4-10.4); PLATELET COUNT 160 /CUMM (130-400); RBC DISTRIBUTION WIDTH 16.6 % (11.5-14.5); WHITE BLOOD CELL COUNT 7.5 /CUMM (4.8-10.8)
[2017-08-05 08:00] VITALS: BP 197/53
--- NOTE | 2017-08-05 09:07 | PN- Vascular Surgery ---
Surgical Brief Attending Note Brief Attending Note: VASCULAR ATTENDING NOTE: Events noted. Pt. is now POD #3 s/p L. CEA. Stable from cerebrovasc. standpoit. Pt. with persistent BP which is hypertensive. Cards. f/u appreciated. 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 This is stable. PE: AF/VSS Neuro:Stable, no upper or lower extremity weakness Neck: soft no hematoma A/P 1.) Cards. f/u for BP-appreciated 2.) Agree with renal US to r/o LUCILLE (although pt. does not want further intervention) 3.) D/C A-line 4.) Please get pt. OOB to chair
--- NOTE | 2017-08-05 09:30 | Cons- Neurology ---
General Information and HPI Consulting Request Date of Consult: 08/05/17 Requested By: Eduardo Mcfarlane MD Reason for Consult: TIA/stroke Source of Information: patient, EMR Exam Limitations: no limitations History of Present Illness: 77-year-old right-handed woman underwent left carotid endarterectomy for asymptomatic stenosis 3 days ago. (States was discovered by her vascular surgeon who was also managing her peripheral arterial disease of her lower extremities ) Blood pressure has been labile. Earlier today she had a visual distortion which she describes the TV screen and images looking "big" at the time systolic blood pressure was over 200. Symptoms quickly resolved to her recollection. She denied headache, dizziness. Speech has been slightly slurred and she has some lower facial weakness. There has been no limb weakness. She states that her primary care physician is Dr. Amador Allergies/Medications Allergies: Coded Allergies: diltiazem (From CARDIZEM) (UNKNOWN 07/30/17) dronedarone (From MULTAQ) (SEVERE DIARRHEA 07/30/17) hydralazine (LUPUS 07/30/17) lisinopril (TONGUE SWELLING 07/30/17) minoxidil (UNKNOWN 07/30/17) rivaroxaban (From XARELTO) (UNKNOWN 07/30/17) Home Med List: Amlodipine Besylate (Norvasc) 10 MG TABLET 1 TAB PO DAILY HTN (Reported) Apixaban (Eliquis) 2.5 MG TABLET 1 TAB PO BID ANTICOAG (Reported) Carvedilol (Coreg) 3.125 MG TABLET 1 TAB PO BID CARDIAC (Reported) Clonidine HCl 0.3 MG TABLET 1 TAB PO BID HTN (Reported) Doxazosin (Cardura) 1 MG TABLET 2 TAB PO BID HTN (Reported) Furosemide (Lasix) 20 MG TABLET 1 TAB PO DAILY DIURETIC (Reported) Hydroxychlorquine (Plaquenil) 200 MG TABLET 1 TAB PO DAILY LUPUS (Reported) Isosorbide Mononitrate (Isosorbide Mononitrate ER) 120 MG TAB.ER.24H 1 TAB PO DAILY HTN (Reported) Pantoprazole Sodium (Protonix) 40 MG TABLET.DR 1 TAB PO DAILY GERD (Reported) Rosuvastatin Calcium (Crestor) 20 MG TABLET 1 TAB PO DAILY CHOLESTEROL ( Reported) Sertraline HCl (Zoloft) 25 MG TABLET 1 TAB PO DAILY DEP (Reported) Valsartan 160 MG TABLET 1 TAB PO BID HTN (Reported) Current Medications: Current Medications Sig/Antoinette Start time Last Medication Dose Route Stop Time Status Admin Amlodipine Besylate 10 MG DAILY 08/03 1000 AC 08/05 PO 0858 Apixaban 2.5 MG BID 08/03 1000 AC 08/04 PO 2227 Atorvastatin Calcium 80 MG 1700 08/02 1700 AC 08/04 PO 1723 Benzocaine/Menthol 1 ANDREA Q2P PRN 08/03 2015 AC PO Carvedilol 3.125 MG BID 08/02 2200 AC 08/04 PO 2227 Clonidine 0.6 MG BID 08/03 2200 AC 08/05 PO 0806 Doxazosin Mesylate 4 MG BID 08/03 2200 AC 08/05 PO 0857 Furosemide 40 MG DAILY 08/05 1000 AC PO Furosemide 20 MG DAILY 08/03 1000 DC 08/04 PO 0922 Glycerin 2 SPRAY Q2P PRN 08/03 2130 AC 08/03 PO 2310 Hydroxychloroquine 200 MG DAILY 08/02 1515 AC 08/04 Sulfate PO 0922 Isosorbide 120 MG DAILY 08/03 1000 AC 08/05 Mononitrate PO 0857 Losartan Potassium 50 MG BID 08/02 1815 AC 08/05 PO 0858 Magnesium Oxide 400 MG DAILY 08/03 1643 AC 08/04 PO 0922 Magnesium Sulfate 1 GM ONCE ONE 08/05 07 AC Dextrose/Water 100 ML IV 08/05 1059 Morphine Sulfate 2 MG Q2P PRN 08/03 0345 AC 08/03 IV 0334 Nitroglycerin 0.4 MG .STK-MED ONE 08/04 1227 DC 08/04 1228 Nitroglycerin 25 MG Q3H 08/03 1400 AC 08/05 Dextrose/Water 250 ML IV 0858 Omeprazole 40 MG DAILY AC 08/02 1507 AC 08/05 PO 0641 Ondansetron HCl 4 MG Q6P PRN 08/02 1215 AC IV Phenol 2 SPRAY Q2P PRN 08/04 1115 AC 08/04 EXT 1446 Potassium Chloride 40 MEQ ONCE ONE 08/05 07 DC PO 08/05 0701 Sertraline HCl 25 MG DAILY 08/02 1515 AC 08/04 PO 0922 Review of Systems Review of Systems: REVIEW OF SYSTEMS: (-) = negative / normal blank = not discussed Neurologic: see HPI Eyes: See HPI ENT: (-) Constitutional: (-) CV: See HPI Respiratory: (-) /Renal: (-) Musculoskeletal: (-) Skin: (-) Psychiatric: (-) Heme: (-) GI: (-) Allergy/Immune: (-) Endocrine: (-) Past History Medical History Blood Transfusion Hx: Yes Neurological: LUMBOSACRAL NEURITIS MACULAR EDEMA EENT: cataracts Cardiovascular: AFIB, CAD, diastolic CHF, hypertension, hyperlipidemia, PVD, ANEMIA Respiratory: COPD Gastrointestinal: GERD, POLYPS Hepatic: NONE Renal: chronic kidney disease Musculoskeletal: chronic back pain, gout, rheumatoid arthritis, SLE with hydralazine Psychiatric: NONE Blood Disorders: anemia Cancer(s): NONE 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 Home Services at Home: Nursing Smoking Status: Former Smoker Exam & Diagnostic Data Vital Signs and I&O Vital Signs Date Time Temp Pulse Resp B/P B/P Pulse O2 O2 Flow FiO2 Mean Ox Delivery Rate 08/05 0858 43 198/62 08/05 0858 43 198/62 08/05 0857 43 198/62 08/04 2227 98.4 54 18 105/85 08/04 2227 98.4 53 18 195/85 08/04 2226 9.4 53 16 195/85 08/04 1600 97.6 44 19 178/76 91 Room Air Intake & Output 08/05 1600 08/05 0800 08/05 0000 Intake Total 525 616 Output Total Balance 525 616 Intake, IV 525 516 Intake, Oral 100 Physical Exam: PHYSICAL EXAMINATION: nl = normal NT or blank = not tested GENERAL Appearance: nl Head: nl Eyes: nl ENT: nl Neck: nl Carotids: nl Lungs: nl Heart: nl Extremities: nl Spine: nl NEUROLOGIC MENTAL STATUS Level of consciousness: nl Orientation: nl Attention / Concentration: nl Memory: nl Fund of Knowledge: nl Speech / Language: Fluent, intact comprehension, very mild dysarthria NEUROLOGIC CRANIAL NERVES I: Olfaction: NT II: Optic nerves: nl Visual holt: nl III: Pupils: nl Levator palpebrae: nl III, IV, : Ocular alignment: nl Extraocular motility: nl Pursuits/ saccades: nl V: Facial sensation: nl Masseter/Pterygoids: nl VII: Facial Motor: Focal weakness of the depressors of the left lower lip VIII: Hearing (finger rub): nl IX, X: Uvula and palate: nl XI: SCM, Upper trap.: nl XII: Tongue: nl MOTOR / NEUROMUSCULAR Bulk: nl Tone: nl Strength: nl Rapid alternating movements: nl Fine motor movements: nl Abnormal / involuntary movements: none CEREBELLAR / COORDINATION: intact SENSATION: intact DTR's symmetrically trace to 1+ PLANTARS: flexor GAIT: Not tested Last 48 Hours of Lab Results: Laboratory Tests 08/05 08/04 08/04 08/04 0415 1736 1138 0410 Chemistry Sodium (137 - 145 mmol/L) 132 L 131 L Potassium (3.5 - 5.1 mmol/L) 3.7 3.7 Chloride (98 - 107 mmol/L) 101 99 Carbon Dioxide (22 - 30 mmol/L) 22 23 Anion Gap (5 - 16) 9 10 BUN (7 - 17 mg/dL) 26 H 25 H Creatinine (0.5 - 1.0 mg/dL) 2.3 H 2.6 H Estimated GFR (>60 ml/min) 20 L 18 L BUN/Creatinine Ratio (7 - 25 %) 9.6 Glucose (65 - 99 mg/dL) 109 H Calcium (8.4 - 10.2 mg/dL) 8.0 L Phosphorus (2.5 - 4.5 mg/dL) 4.9 H Magnesium (1.6 - 2.3 mg/dL) 1.7 1.7 Total Bilirubin (0.2 - 1.3 mg/dL) 0.3 AST (14 - 36 U/L) 12 L ALT (9 - 52 U/L) 20 Troponin I (< 0.11 ng/ml) < 0.01 < 0.01 Albumin (3.5 - 5.0 g/dL) 2.4 L Hematology CBC w Diff NO MAN DIFF REQ WBC (4.8 - 10.8 /CUMM) 7.5 RBC (4.20 - 5.40 /CUMM) 3.30 L Hgb (12.0 - 16.0 G/DL) 8.8 L Hct (37 - 47 %) 26.2 L MCV (81.0 - 99.0 FL) 79.5 L MCH (27.0 - 31.0 PG) 26.6 L MCHC (33.0 - 37.0 G/DL) 33.5 RDW (11.5 - 14.5 %) 16.6 H Plt Count (130 - 400 /CUMM) 160 MPV (7.4 - 10.4 FL) 9.6 Gran % (42.2 - 75.2 %) 77.1 H Lymphocytes % (20.5 - 51.1 %) 10.9 L Monocytes % (1.7 - 9.3 %) 8.1 Eosinophils % (0 - 5 %) 3.5 Basophils % (0.0 - 2.0 %) 0.4 Absolute Granulocytes (1.4 - 6.5 /CUMM) 5.8 Absolute Lymphocytes (1.2 - 3.4 /CUMM) 0.8 L Absolute Monocytes (0.10 - 0.60 /CUMM) 0.6 Absolute Eosinophils (0.0 - 0.7 /CUMM) 0.3 Absolute Basophils (0.0 - 0.2 /CUMM) 0 Imaging/Other Studies: Head CT 08/05/2017: IMPRESSION: 1. There are no acute bleeds or territorial infarcts. 2. There is extensive low attenuation in the white matter consistent with chronic microvascular ischemic disease and there are lacunar infarcts. 3. There is moderate diffuse volume loss. 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 Review of the literature reports this injury occurs in approximately 1.9% of patients undergoing carotid endarterectomy. The risk of permanent cranial nerve deficit is low at less than 1%. She has peripheral arterial disease, carotid atherosclerosis, and brain imaging evidence of small vessel disease as well Recommendations: Continue antiplatelet and statin therapy Blood pressure control Continues to refrain from smoking No further neurodiagnostic testing needed at this time Please call if we can be of further assist Consult Acknowledgment - Thank you for your consult request.
--- NOTE | 2017-08-05 09:39 | CT SCAN REPORT ---
EXAMINATION: CT HEAD WITHOUT CONTRAST CLINICAL INFORMATION: Facial droop, visual symptoms. Assess for CVA. COMPARISON: None. TECHNIQUE: Contiguous axial imaging was performed from the skull base to vertex without intravenous administration of contrast. DLP: 614.78 mGy-cm FINDINGS: There is no evidence of acute intracranial hemorrhage or territorial infarction. No abnormal mass effect or midline shift is seen. Black to white matter differentiation is well preserved. No extra-axial fluid collections are identified. The ventricles and sulci are commensurately prominent consistent with moderate diffuse volume loss. Extensive low attenuation in the periventricular and subcortical white matter, most consistent with chronic microvascular ischemic changes. There are lacunar infarcts in the bilateral basal ganglia and in the rehana. There are extensive atheromatous calcifications of the cavernous internal carotid and vertebral arteries bilaterally. There have been bilateral lens extractions. There are severe degenerative changes of the left temporomandibular joint. Milder changes are seen on the right. The nasal septum is deviated to the right with a right-sided bony nasal septal spur posteriorly. The right mastoid air cells are poorly pneumatized. There is no significant opacification of the paranasal sinuses. IMPRESSION: 1. There are no acute bleeds or territorial infarcts. 2. There is extensive low attenuation in the white matter consistent with chronic microvascular ischemic disease and there are lacunar infarcts. 3. There is moderate diffuse volume loss.
--- NOTE | 2017-08-05 10:13 | PN- Nephrology ---
Assessment/Plan Nephrology Assessment: Stage IV CKD - baseline Cr normally around 3. 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 HTN - Poorly controlled at baseline with SBP 160's-170's. Low potassium suggestive of high aldosterone state. Given her peripheral vascular disease in her neck, I would not be surprised if there were some degree of renovascular hypertension (Renal US done 06/2016 with 8.8cm and 9.5cm kidneys). Given that she's already on RAAS inhibition and her Cr is even better than it has been before, I think that adding spironolactone would not be unreasonable (would anticipate K elevation of 0.7 given eGFR <45). This is in conjunction with going up on her lasix given that all HTN is volume mediated to an extent. Should note that the patient is refusing minoxidil (facial hair growth in the past). At the moment, I don't see an emergency to resorting to an IV drip such as fenoldopam to acutely bring down her BP as this cannot be a chronic med for her. Suggestion: -Lasix 40mg daily -Start spironolactone 50mg daily -BMP tomorrow AM -Can consider fenoldopam gtt if HTN emergency were to develop but not clear to me that it's needed now -Wean off nitro gtt over next 24hrs while continuing imdur Please call [phone] with ?'s Subjective Subjective: SBP remains in 190's (should note that baseline BP in my office was SBP 160's- 170's) Remains on nitro gtt; on coreg with HR 40's Other meds noted as well as allergies/intolerances Question of L facial droop this AM. CT Head neg Objective Vital Signs and I&Os Vital Signs Date Time Temp Pulse Resp B/P B/P Pulse O2 O2 Flow FiO2 Mean Ox Delivery Rate 08/05 857 43 198/62 08/05 0858 43 198/62 08/05 0857 43 198/62 08/05 0800 99.6 45 18 197/53 95 Room Air 08/04 2226 98.4 54 18 105/85 08/04 2226 98.4 53 18 195/85 08/046 9.4 53 16 195/85 08/04 1600 97.6 44 19 178/76 91 Room Air Intake & Output 08/05 1600 08/05 0400 08/04 1600 08/04 0400 08/03 1600 08/03 0400 Intake Total 361 129 2014 1015 2765 1412 Output Total 200 200 150 Balance 546 633 9714 815 2615 1412 Intake, IV 525 516 351 853 2680 932 Intake, Oral 100 620 380 640 480 Number 0 0 0 Bowel Movements Output, Urine 200 200 150 Physical Exam: Gen - OK appearing HEENT - L cheek "pulled down" at area of tape CV - RRR, no m/r/g Chest - clear anteriorly, no w/r/r Abd - soft, NTND Ext - no edema Neuro - AOX3, grossly nonfocal Current Medications: Current Medications Sig/Antoinette Start time Last Medication Dose Route Stop Time Status Admin Amlodipine Besylate 10 MG DAILY 08/03 1000 AC 08/05 PO 0858 Apixaban 2.5 MG BID 08/03 1000 AC 08/04 PO 2227 Atorvastatin Calcium 80 MG 1700 08/02 1700 AC 08/04 PO 1723 Benzocaine/Menthol 1 ANDREA Q2P PRN 08/03 2014 AC PO Carvedilol 3.125 MG BID 08/02 2200 AC 08/04 PO 2227 Clonidine 0.6 MG BID 08/03 2200 AC 08/05 PO 0806 Doxazosin Mesylate 4 MG BID 08/03 2200 AC 08/05 PO 0857 Furosemide 40 MG DAILY 08/05 1000 AC PO Furosemide 20 MG DAILY 08/03 1000 DC 08/04 PO 0922 Glycerin 2 SPRAY Q2P PRN 08/03 2130 AC 08/03 PO 2310 Hydroxychloroquine 200 MG DAILY 08/02 1515 08/04 Sulfate PO 0922 Isosorbide 120 MG DAILY 08/03 1000 AC 08/05 Mononitrate PO 0857 Losartan Potassium 50 MG BID 08/02 1815 AC 08/05 PO 0858 Magnesium Oxide 400 MG DAILY 08/03 1643 AC 08/04 PO 0922 Magnesium Sulfate 1 GM ONCE ONE 08/05 0700 AC 08/05 Dextrose/Water 100 ML IV 08/05 1059 0939 Morphine Sulfate 2 MG Q2P PRN 08/03 0345 08/03 IV 0334 Nitroglycerin 0.4 MG .STK-MED [facility] 08/04 1227 [facility] 08/04 1228 Nitroglycerin 25 MG Q3H 08/03 1400 AC 08/05 Dextrose/Water 250 ML IV 0858 Omeprazole 40 MG DAILY AC 08/02 1507 AC 08/05 PO 0641 Ondansetron HCl 4 MG Q6P PRN 08/02 1215 AC IV Phenol 2 SPRAY Q2P PRN 08/04 1115 AC 08/04 EXT 1446 Potassium Chloride 40 MEQ ONCE ONE 08/05 0700 DC PO 08/05 0701 Sertraline HCl 25 MG DAILY 08/02 1515 AC 08/04 PO 0922 Results Pertinent Lab Results: Laboratory Tests 08/05 08/04 08/04 08/04 0415 1736 1138 0410 Chemistry Sodium (137 - 145 mmol/L) 132 L 131 L Potassium (3.5 - 5.1 mmol/L) 3.7 3.7 Chloride (98 - 107 mmol/L) 101 99 Carbon Dioxide (22 - 30 mmol/L) 22 23 Anion Gap (5 - 16) 9 10 BUN (7 - 17 mg/dL) 26 H 25 H Creatinine (0.5 - 1.0 mg/dL) 2.3 H 2.6 H Estimated GFR (>60 ml/min) 20 L 18 L BUN/Creatinine Ratio (7 - 25 %) 9.6 Glucose (65 - 99 mg/dL) 109 H Calcium (8.4 - 10.2 mg/dL) 8.0 L Phosphorus (2.5 - 4.5 mg/dL) 4.9 H Magnesium (1.6 - 2.3 mg/dL) 1.7 1.7 Total Bilirubin (0.2 - 1.3 mg/dL) 0.3 AST (14 - 36 U/L) 12 L ALT (9 - 52 U/L) 20 Troponin I (< 0.11 ng/ml) < 0.01 < 0.01 Albumin (3.5 - 5.0 g/dL) 2.4 L Hematology CBC w Diff NO MAN DIFF REQ WBC (4.8 - 10.8 /CUMM) 7.5 RBC (4.20 - 5.40 /CUMM) 3.30 L Hgb (12.0 - 16.0 G/DL) 8.8 L Hct (37 - 47 %) 26.2 L MCV (81.0 - 99.0 FL) 79.5 L MCH (27.0 - 31.0 PG) 26.6 L MCHC (33.0 - 37.0 G/DL) 33.5 RDW (11.5 - 14.5 %) 16.6 H Plt Count (130 - 400 /CUMM) 160 MPV (7.4 - 10.4 FL) 9.6 Gran % (42.2 - 75.2 %) 77.1 H Lymphocytes % (20.5 - 51.1 %) 10.9 L Monocytes % (1.7 - 9.3 %) 8.1 Eosinophils % (0 - 5 %) 3.5 Basophils % (0.0 - 2.0 %) 0.4 Absolute Granulocytes (1.4 - 6.5 /CUMM) 5.8 Absolute Lymphocytes (1.2 - 3.4 /CUMM) 0.8 L Absolute Monocytes (0.10 - 0.60 /CUMM) 0.6 Absolute Eosinophils (0.0 - 0.7 /CUMM) 0.3 Absolute Basophils (0.0 - 0.2 /CUMM) 0 08/03 08/03 08/03 0600 0500 0240 Chemistry Sodium (137 - 145 mmol/L) Cancelled 135 L Potassium (3.5 - 5.1 mmol/L) Cancelled 3.8 Chloride (98 - 107 mmol/L) Cancelled 102 Carbon Dioxide (22 - 30 mmol/L) Cancelled 24 Anion Gap (5 - 16) Cancelled 10 BUN (7 - 17 mg/dL) Cancelled 27 H Creatinine (0.5 - 1.0 mg/dL) Cancelled 2.9 H Estimated GFR (>60 ml/min) 16 L BUN/Creatinine Ratio Cancelled Glucose (65 - 99 mg/dL) 116 H Calcium (8.4 - 10.2 mg/dL) 8.1 L Phosphorus (2.5 - 4.5 mg/dL) 5.4 H Magnesium (1.6 - 2.3 mg/dL) 1.6 Total Bilirubin (0.2 - 1.3 mg/dL) 0.3 AST (14 - 36 U/L) 14 ALT (9 - 52 U/L) 22 Troponin I (< 0.11 ng/ml) 0.02 Albumin (3.5 - 5.0 g/dL) 2.9 L Hematology CBC w Diff Cancelled NO MAN DIFF REQ WBC (4.8 - 10.8 /CUMM) Cancelled 9.6 RBC (4.20 - 5.40 /CUMM) Cancelled 3.63 L Hgb (12.0 - 16.0 G/DL) Cancelled 9.4 L Hct (37 - 47 %) Cancelled 29.3 L MCV (81.0 - 99.0 FL) Cancelled 80.9 L MCH (27.0 - 31.0 PG) Cancelled 25.9 L MCHC (33.0 - 37.0 G/DL) Cancelled 32.1 L RDW (11.5 - 14.5 %) Cancelled 17.0 H Plt Count (130 - 400 /CUMM) Cancelled 201 MPV (7.4 - 10.4 FL) Cancelled 9.3 Gran % (42.2 - 75.2 %) 81.4 H Lymphocytes % (20.5 - 51.1 %) 8.9 L Monocytes % (1.7 - 9.3 %) 6.9 Eosinophils % (0 - 5 %) 2.6 Basophils % (0.0 - 2.0 %) 0.2 Absolute Granulocytes (1.4 - 6.5 /CUMM) 7.8 H Absolute Lymphocytes (1.2 - 3.4 /CUMM) 0.8 L Absolute Monocytes (0.10 - 0.60 /CUMM) 0.7 H Absolute Eosinophils (0.0 - 0.7 /CUMM) 0.2 Absolute Basophils (0.0 - 0.2 /CUMM) 0 Imaging/Other Studies: EXAMINATION: CT HEAD WITHOUT CONTRAST CLINICAL INFORMATION: Facial droop, visual symptoms. Assess for CVA. COMPARISON: None. TECHNIQUE: Contiguous axial imaging was performed from the skull base to vertex without intravenous administration of contrast. DLP: 614.78 mGy-cm FINDINGS: There is no evidence of acute intracranial hemorrhage or territorial infarction. No abnormal mass effect or midline shift is seen. Black to white matter differentiation is well preserved. No extra-axial fluid collections are identified. The ventricles and sulci are commensurately prominent consistent with moderate diffuse volume loss. Extensive low attenuation in the periventricular and subcortical white matter, most consistent with chronic microvascular ischemic changes. There are lacunar infarcts in the bilateral basal ganglia and in the rehana. There are extensive atheromatous calcifications of the cavernous internal carotid and vertebral arteries bilaterally. There have been bilateral lens extractions. There are severe degenerative changes of the left temporomandibular joint. Milder changes are seen on the right. The nasal septum is deviated to the right with a right-sided bony nasal septal spur posteriorly. The right mastoid air cells are poorly pneumatized. There is no significant opacification of the paranasal sinuses. IMPRESSION: 1. There are no acute bleeds or territorial infarcts. 2. There is extensive low attenuation in the white matter consistent with chronic microvascular ischemic disease and there are lacunar infarcts. 3. There is moderate diffuse volume loss.
--- NOTE | 2017-08-05 10:15 | PN- Cardiology ---
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 CAT scan without IV contrast head was obtained with negative results for hemorrhagic stroke. Patient denied any headaches, blurry vision at time of exam. She denied any chest pain, palpitation, shortness of breath, dizziness. Patient is in no acute distress. Objective Vital Signs and I&Os Vital Signs Date Time Temp Pulse Resp B/P B/P Pulse O2 O2 Flow FiO2 Mean Ox Delivery Rate 08/05 857 43 198/62 08/05 0858 43 19808/0557 43 198/08/04 98.4 54 18 105/85 08/04 2226 98.4 53 18 19508/04 9.4 53 16 08/04 1600 97.6 44 19 178/76 91 Room Air Intake & Output 08/05 1600 08/05 0000 08/04 1600 08/04 0700 08/04 0000 Intake Total 485 248 9786 464 1015 Output Total 200 200 Balance 525 616 805 464 815 Intake, IV 525 516 505 344 635 Intake, Oral 100 500 120 380 Number 0 0 0 Bowel Movements Output, Urine 200 200 Physical Exam: No acute distress CVS S1, S2 irregular, systolic murmur 3/6 Chest clear to auscultation Abdomen soft Lower extremity no swelling Neuro exam right facial droop, facial nerve exam normal, motor 5/5 Current Medications: Current Medications Sig/Antoinette Start time Last Medication Dose Route Stop Time Status Admin Amlodipine Besylate 10 MG DAILY 08/03 1000 AC 08/05 PO 0858 Apixaban 2.5 MG BID 08/03 1000 AC 08/04 PO 2227 Atorvastatin Calcium 80 MG 1700 08/02 1700 AC 08/04 PO 1723 Benzocaine/Menthol 1 ANDREA Q2P PRN 08/03 2014 AC PO Carvedilol 3.125 MG BID 08/020 AC 08/04 PO 2227 Clonidine 0.6 MG BID 08/03 2199 AC 08/05 PO 0806 Doxazosin Mesylate 4 MG BID 08/03 2199 AC 08/05 PO 0857 Furosemide 40 MG DAILY 08/05 1000 AC PO Furosemide 20 MG DAILY 08/03 1000 DC 08/04 PO 0922 Glycerin 2 SPRAY Q2P PRN 08/03 2130 AC 08/03 PO 2310 Hydroxychloroquine 200 MG DAILY 08/02 1515 AC 08/04 Sulfate PO 0922 Isosorbide 120 MG DAILY 08/03 1000 AC 08/05 Mononitrate PO 0857 Losartan Potassium 50 MG BID 08/02 1815 AC 08/05 PO 0858 Magnesium Oxide 400 MG DAILY 08/03 1643 AC 08/04 PO 0922 Magnesium Sulfate 1 GM ONCE ONE 08/05 0700 AC 08/05 Dextrose/Water 100 ML IV 08/05 1059 0939 Morphine Sulfate 2 MG Q2P PRN 08/03 0345 AC 08/03 IV 0334 Nitroglycerin 0.4 MG .STK-MED ONE 08/04 1227 DC SL 08/04 1228 Nitroglycerin 25 MG Q3H 08/03 1400 AC 08/05 Dextrose/Water 250 ML IV 0858 Omeprazole 40 MG DAILY AC 08/02 1507 AC 08/05 PO 0641 Ondansetron HCl 4 MG Q6P PRN 08/02 1215 AC IV Phenol 2 SPRAY Q2P PRN 08/04 1115 AC 08/04 EXT 1446 Potassium Chloride 40 MEQ ONCE ONE 08/05 0700 DC PO 08/05 0701 Sertraline HCl 25 MG DAILY 08/02 1515 AC 08/04 PO 0922 Results Last 48 Hrs of Labs/Mics: Laboratory Tests 08/05/17 0415: Anion Gap 9, Estimated GFR 20 L, Glucose 109 H, Calcium 8.0 L, Phosphorus 4.9 H, Magnesium 1.7, Total Bilirubin 0.3, AST 12 L, ALT 20, Albumin 2.4 L, CBC w Diff NO MAN DIFF REQ, RBC 3.30 L, MCV 79.5 L, MCH 26.6 L, MCHC 33.5, RDW 16.6 H, MPV 9.6, Gran % 77.1 H, Lymphocytes % 10.9 L, Monocytes % 8.1, Eosinophils % 3.5, Basophils % 0.4, Absolute Granulocytes 5.8, Absolute Lymphocytes 0.8 L, Absolute Monocytes 0.6, Absolute Eosinophils 0.3, Absolute Basophils 0 08/04/17 1736: Troponin I < 0.01 02/28/18 1138: Troponin I < 0.01 08/04/17 0410: Anion Gap 10, Estimated GFR 18 L, BUN/Creatinine Ratio 9.6, Magnesium 1.7 Recent Imaging Studies: EXAMINATION: CT HEAD WITHOUT CONTRAST CLINICAL INFORMATION: Facial droop, visual symptoms. Assess for CVA. COMPARISON: None. TECHNIQUE: Contiguous axial imaging was performed from the skull base to vertex without intravenous administration of contrast. DLP: 614.78 mGy-cm FINDINGS: There is no evidence of acute intracranial hemorrhage or territorial infarction. No abnormal mass effect or midline shift is seen. Black to white matter differentiation is well preserved. No extra-axial fluid collections are identified. The ventricles and sulci are commensurately prominent consistent with moderate diffuse volume loss. Extensive low attenuation in the periventricular and subcortical white matter, most consistent with chronic microvascular ischemic changes. There are lacunar infarcts in the bilateral basal ganglia and in the rehana. There are extensive atheromatous calcifications of the cavernous internal carotid and vertebral arteries bilaterally. There have been bilateral lens extractions. There are severe degenerative changes of the left temporomandibular joint. Milder changes are seen on the right. The nasal septum is deviated to the right with a right-sided bony nasal septal spur posteriorly. The right mastoid air cells are poorly pneumatized. There is no significant opacification of the paranasal sinuses. IMPRESSION: 1. There are no acute bleeds or territorial infarcts. 2. There is extensive low attenuation in the white matter consistent with chronic microvascular ischemic disease and there are lacunar infarcts. 3. There is moderate diffuse volume loss. Assessment/Plan Assessment/Plan 1. Paroxysmal atrial fibrillation 2. HFPEF EF 60-65% 3. POD#3 status post carotid endarterectomy 4. Hypertensive emergency 5. Bradycardia 6. Chronic kidney disease stage 4 Recommendation 1. Records from patient's database support Dr. Riddle were reviewed, no evidence of MRA renal arteries 2. Continue discontinuing nitroglycerin drip today is day 3 and patient is on imdur as well 3. Lasix was increased from 20-40 mg yesterday, continue monitor kidney function, strict I&O 4. Continue clonidine 0.6 milligrams twice a day, Doxazosin 4 mg BID, Imdur 120 mg daily, norvasc 10 mg daily, losartan 50 mg daily, coreg 3.125 BID 5. Avoid beta blockers given bradycardia 6. Consider obtaining renal vessels ultrasound to rule out stenosis 7. Consider managing other causes that might increase blood pressure like pain and anxiety Continue telemetry? Yes
--- NOTE | 2017-08-05 10:57 | PN- Resident CRCU ---
Rory Monreal 08/05/17 1057: Subjective HPI/CRCU Issues: The patient was seen and examined in the morning. She reported that she started "seeing everything big" while she woke up this morning. She also complained of throbbing frontal headache. Her symptoms resolved spontaneously after a few minutes. The patient denied any dizziness, lightheadedness, nausea, vomiting, chest pain, shortness of breath, abdominal pain. BP on the monitor was noted to be over 200s sys/100s diastolic. She was also noted to have left sided lower lip droop, she states that this happened after her surgery. The patient was given her clonidine, amlodipine, doxazosin, Imdur. Head CT was ordered. Objective Vital Signs & I&O Last 8 Hrs of Vitals and I&O: Intake & Output 08/05 1600 Intake Total 760 Output Total 150 Balance 610 Intake, IV 700 Intake, Oral 60 Output, Urine 150 Exam General Appearance: no apparent distress, alert, awake, comfortable, AAOx3 Head: atraumatic, normal appearance Ears, Nose, Throat: normal pharynx Neck: supple Respiratory: normal breath sounds, chest non-tender Cardiovascular: regular rate/rhythm Gastrointestinal: normal bowel sounds, soft, non-tender Extremities: normal inspection, no edema Cranial Nerves: PERRL, slight dysarthria Skin: intact Skin Temp/Moisture Exam: Warm/Dry Sepsis Skin Exam (color): Normal for Ethnicity Other Physical Findings: Cranial nerves II, 3, 4, 6: Intact, cranial nerve V: facial sensation intact, focal weakness of the depressors of the left lower lip noted. Cranial nerve VII , 8, 9, 10, 11, 12 intact. Current Medications: Current Medications Sig/Antoinette Start time Last Medication Dose Route Stop Time Status Admin Amlodipine Besylate 10 MG DAILY 08/03 1000 AC 08/05 PO 0858 Apixaban 2.5 MG BID 08/03 1000 AC 08/05 PO 1111 Aspirin Buffered 81 MG DAILY 08/06 1000 AC PO Atorvastatin Calcium 80 MG 1700 08/02 1700 AC 08/05 PO 1813 Benzocaine/Menthol 1 ANDREA Q2P PRN 08/03 2014 AC PO Carvedilol 3.125 MG BID 08/020 AC 08/05 PO 1000 Clonidine 0.6 MG BID 08/03 2199 AC 08/05 PO 0806 Doxazosin Mesylate 4 MG BID 08/03 2200 AC 08/05 PO 0857 Furosemide 40 MG DAILY 08/05 1000 AC 08/05 PO 1112 Glycerin 2 SPRAY Q2P PRN 08/03 2130 AC 08/03 PO 2310 Hydroxychloroquine 200 MG DAILY 08/02 1515 AC 08/05 Sulfate PO 1628 Isosorbide 120 MG DAILY 08/03 1000 AC 08/05 Mononitrate PO 0857 Losartan Potassium 50 MG BID 08/02 1815 DC 08/05 PO 0858 Magnesium Oxide 400 MG DAILY 08/03 1643 AC 08/05 PO 1628 Magnesium Sulfate 1 GM ONCE ONE 08/05 0700 DC 08/05 Dextrose/Water 100 ML IV 08/05 1059 0939 Morphine Sulfate 2 MG Q2P PRN 08/03 0345 AC 08/03 IV 0334 Nitroglycerin 25 MG Q3H 08/03 1400 AC 08/05 Dextrose/Water 250 ML IV 1555 Omeprazole 40 MG DAILY AC 08/02 1507 AC 08/05 PO 0641 Ondansetron HCl 4 MG Q6P PRN 08/02 1215 AC IV Phenol 2 SPRAY Q2P PRN 08/04 1115 AC 08/04 EXT 1446 Potassium Chloride 40 MEQ ONCE ONE 08/05 0700 DC 08/05 PO 08/05 0701 1601 Sertraline HCl 25 MG DAILY 08/02 1515 AC 08/05 PO 1113 Spironolactone 50 MG DAILY 08/05 1541 AC 08/05 PO 1625 Valsartan 160 MG BID 08/05 2200 AC PO Impression/Plan Impression/Problem List Impression: This is a 77-year-old lady with past medical history significant for an NSTEMI 2015, labile hypertension on multiple medications, paroxysmal atrial fibrillation, HFpEF, PAD, tachybradycardia syndrome, GERD, CKD stage V secondary to hypertensive nephrosclerosis diagnosed in 2008, iron deficiency anemia, 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 Medical team was consulted for help with management of hypertension. Problem list: #Mild dysarthria, left lower lip droop; likely 2/2 focal nerve injury of the marginal mandibular nerve, a branch of the facial nerve #Labile hypertenstion/hypertensive urgency #Paroxysmal A.fib on oral AC Plan: * Monitor closely in the ICU * Head CT negative for any acute pathology * Follow cardiology and nephrology recommendation regarding antihypertensive adjustments * She is allergic to hydralazine, also is bradycardic; options for IV antihypertensives are limited. * Was evaluated by speech therapy for swallowing and underwent modified barium swallow. * Per nephrology, her baseline blood pressure runs in the [id number] systolic. * Renal artery ultrasound revealed elevated velocity within the proximal right renal artery. Note, thiswas a technically challenging exam which limits sensitivity. Consider further evaluation with CTA of the abdomen to better assess the renal arteries. * Per nephrology, the result of renal artery ultrasound would not change medical management at this point. * Neurology evaluated the patient recommended continue antiplatelets. The patient is not on any antiplatelets. Discussed via phone with Dr. Riggs;whatever surgical team decides would be okay; as patient is asymptomatic. * Avoid decreasing blood pressure too rapidly. * Other problems management as per surgical team. Problem List: 1. Hypertensive urgency Pain Ratin Tomorrow's Labs & Rationales: Would recommend monitoring electrolytes and CBC Plan DVT/Prophylaxis: pharmacological Brenda WELLS,[facility] 08/05/172044: Attending MD Review Statement Attending Sign Off Attending Cosign Statement: I have: examined this patient, reviewed [employer] EMR data, personally reviewd images, discussd w/resident/PA/[employer]IP[employer] DIESEL MECHANIC, discussed mgmt plan w/leticia, discussed mgmt plan w/CM, discussed mgmt plan w/pt, agreed w/resident/PA/HE[employer] EQUIP[employer] DIESEL MECHANIC, amended to note. 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, poorly controlled hypertension on multiple medications, recent left carotid endarterectomy for asymptomatic carotid stenosis, significant labile blood pressure, recent facial nerve focal injury for neurology, peripheral artery disease, small blood vessel disease in the brain now has * Severe uncontrolled hypertension on multiple medications which is slowly improving * Probable renal artery stenosis on the right side with ultrasound * Chronic kidney disease stage IV * Severe vascular disease now status post carotid endarterectomy * Mild facial droop-like abnormality most likely related to partial branch facial nerve Sondra is per neurology note with no clinical evidence suggestive of acute stroke * 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 * Proximal atrial fibrillation with chronic heart failure with preserved ejection fraction * Discomfort of the chest with no active coronary ischemia REC * Aggressive blood pressure management per renal and cardiology * Keep the head of bed elevated * Continue low-dose Apixaban * Frequent neuro checks * Wean off nitro drip * Continue high dose Imdur * Patient is now started on spironolactone and valsartan time which might help her as she may have renal artery stenosis * Continue clonidine, doxazosin * Continue amiodarone * Pain control * Continue low-dose Coreg and watch her heart rate as she is bradycardic * Aggressive lipid-lowering therapy We will follow closely The patient, Patient is critically ill total time spent 40 minutes
--- NOTE | 2017-08-05 13:38 | ULTRASOUND REPORT ---
EXAMINATION: RENAL ARTERY DOPPLER ULTRASOUND CLINICAL INFORMATION: Labile hypertension. Rule out renal artery stenosis. COMPARISON: None. TECHNIQUE: Renal ultrasound. Doppler ultrasound (spectral analysis and color Doppler) of the renal arteries and aorta were performed. The exam was done portably. Technically challenging exam due to the patient's inability to follow instructions. FINDINGS: The right kidney measures 9.2 cm x 4.3 cm x 4.5 cm in sagittal, AP and transverse dimensions. The left kidney measures 8.8 cm x 4.7 cm x 3.9 cm in sagittal, AP and transverse dimensions. The kidneys show no masses, calculi or hydronephrosis. The corticomedullary differentiation is normal. RENAL ARTERY VELOCITIES: RIGHT: Proximally: 260 cm/s. Mid: 123 cm/s. Distal: 46 cm/s. LEFT: Proximally: 108 cm/s. Mid: 41 cm/s. Distally: 77 cm/s. The aortic velocity is 190 cm/s. IMPRESSION: There is elevated velocity within the proximal right renal artery. Note, this was a technically challenging exam which limits sensitivity. Consider further evaluation with CTA of the abdomen to better assess the renal arteries.
--- NOTE | 2017-08-05 14:10 | RADIOLOGY REPORT ---
EXAMINATION: XR MODIFIED BARIUM SWALLOW CLINICAL INFORMATION: Left carotid endarterectomy with left facial weakness. COMPARISON: None. TECHNIQUE: Modified barium swallow was performed by the speech pathology service under fluoroscopic assistance FINDINGS: The modified barium swallow examination was performed in cooperation with the speech pathologist using dynamic fluoroscopic imaging in a lateral projection. The patient's swallowing function was observed during administration of: apple sauce puree, honey, nectar, thin barium contrast, and barium coated bread and cracker. Please refer to the speech pathology report regarding other examination details and recommendations. After deglutition, there was retention of barium within the vallecula. Although they were episodes of tracheal penetration with thin and nectar consistencies, there were no episodes of tracheal aspiration. Fluoroscopy time: 1.48 minutes. Total number of images: 12 IMPRESSION: There was post deglutition retention of material within the valleculae. Tracheal penetration with thin and nectar consistency barium without witnessed aspiration. Refer to the speech pathology report for details.
[2017-08-05 16:00] VITALS: BP 160/70
[2017-08-06] VITALS: BP 184/87
[2017-08-06 05:45] LABS: ABSOLUTE BASOPHIL COUNT 0 /CUMM (0.0-0.2); ABSOLUTE EOSINOPHIL COUNT 0.3 /CUMM (0.0-0.7); ABSOLUTE GRANULOCYTE CT 6.2 /CUMM (1.4-6.5); ABSOLUTE LYMPH COUNT 0.8 /CUMM (1.2-3.4); ABSOLUTE MONOCYTE COUNT 0.6 /CUMM (0.10-0.60); BASOPHIL % 0.1 % (0.0-2.0); EOSINOPHIL % 3.4 % (0-5); GRANULOCYTE % 78.6 % (42.2-75.2); HEMATOCRIT 28.7 % (37-47); MEAN CORPUSCULAR HGB 26.2 PG (27.0-31.0); MEAN CORPUSCULAR HGB CONC 32.8 G/DL (33.0-37.0); MEAN CORPUSCULAR VOLUME 79.8 FL (81.0-99.0); MEAN PLATELET VOLUME 9.9 FL (7.4-10.4); PLATELET COUNT 189 /CUMM (130-400); RBC DISTRIBUTION WIDTH 16.9 % (11.5-14.5); RED BLOOD CELL CT 3.59 /CUMM (4.20-5.40); WHITE BLOOD CELL COUNT 7.9 /CUMM (4.8-10.8)
--- NOTE | 2017-08-06 06:07 | PN- Vascular Surgery ---
Subjective Subjective: Patient reports headache resolved. Pain is well controlled. Denies blurry vision , chest pain, sob. Per nursing, nitro weaned, currently at 70 with systolic pressure of 160s, which is her baseline. She underwent a swallow eval yesterday, started on nectar thick diet, which she is tolerating. Objective Vital Signs and I&Os Vital Signs Date Time Temp Pulse Resp B/P B/P Pulse O2 O2 Flow FiO2 Mean Ox Delivery Rate 08/06 0400 93 Room Air 08/06 0000 99.0 52 25 184/87 94 Room Air 08/06 0000 94 Room Air 08/05 2248 56 196/87 08/05 2246 56 196/87 08/05 2245 56 196/87 08/05 2000 96 Room Air 08/05 1600 98.1 42 18 160/70 94 Room Air 08/05 1600 94 Room Air 08/05 1200 92 Room Air 08/05 1000 42 175/81 08/05 0858 43 198/62 08/05 0858 43 198/62 08/05 0857 43 198/62 08/05 0800 99.6 45 18 197/53 95 Room Air 08/05 0800 95 Room Air Intake & Output 08/06 0800 / 0000 08/05 1600 /01 0800 08/05 0000 08/04 1600 Intake Total 727 760 936 377 4673 Output Total 150 200 Balance 727 610 525 616 805 Intake, IV 487 700 525 516 505 Intake, Oral 240 60 100 500 Number 0 0 Bowel Movements Output, Urine 150 200 Physical Exam: General - resting comfortably in icu awake an alert in NAD Neck - soft no hematoma, dressing c/d/i, mandibular nerve palsy noted and appears improving, minimal swelling and ecchymosis Cardiac - S1S2 noted Lungs - CTAB Ext - no edema or calf tenderness Neuro - Stable, no upper or lower extremity weakness Current Medications: Current Medications Sig/Antoinette Start time Last Medication Dose Route Stop Time Status Admin Amlodipine Besylate 10 MG DAILY 08/03 1000 AC 08/05 PO 0858 Apixaban 2.5 MG BID 08/03 1000 AC 08/05 PO 2247 Aspirin Buffered 81 MG DAILY 08/06 1000 AC PO Atorvastatin Calcium 80 MG 1700 08/02 1700 AC 08/05 PO 1813 Benzocaine/Menthol 1 ANDREA Q2P PRN 08/03 2014 AC PO Carvedilol 3.125 MG BID 08/02 2200 AC 08/05 PO 2246 Clonidine 0.6 MG BID 08/03 2200 AC 08/05 PO 2245 Doxazosin Mesylate 4 MG BID 08/03 2200 AC 08/05 PO 2246 Furosemide 40 MG DAILY 08/05 1000 AC 08/05 PO 1112 Glycerin 2 SPRAY Q2P PRN 08/03 2130 AC 08/03 PO 2310 Hydroxychloroquine 200 MG DAILY 08/02 1515 AC 08/05 Sulfate PO 1628 Isosorbide 120 MG DAILY 08/03 1000 AC 08/05 Mononitrate PO 0857 Losartan Potassium 50 MG BID 08/02 1815 DC 08/05 PO 0858 Magnesium Oxide 400 MG DAILY 08/03 1643 AC 08/05 PO 1628 Magnesium Sulfate 1 GM ONCE ONE 08/05 07 DC 08/05 Dextrose/Water 100 ML IV 08/05 1059 0939 Morphine Sulfate 2 MG Q2P PRN 08/03 0345 AC 08/03 IV 0334 Nitroglycerin 25 MG Q3H 08/03 1400 AC 08/06 Dextrose/Water 250 ML IV 0430 Omeprazole 40 MG DAILY AC 08/02 1507 AC 08/05 PO 0641 Ondansetron HCl 4 MG Q6P PRN 08/02 1215 AC IV Phenol 2 SPRAY Q2P PRN 08/04 1115 AC 08/05 EXT 2251 Potassium Chloride 40 MEQ ONCE ONE 08/05 0700 DC 08/05 PO 08/05 0701 1601 Sertraline HCl 25 MG DAILY 08/02 1515 AC 08/05 PO 1113 Spironolactone 50 MG DAILY 08/05 1541 AC 08/05 PO 1625 Valsartan 160 MG BID 08/05 2200 AC 08/05 PO 2248 Results Last 48 Hours of Labs: Laboratory Tests 08/06 08/06 0500 0500 Chemistry Sodium Pending Potassium Pending Chloride Pending Carbon Dioxide Pending Anion Gap Pending BUN Pending Creatinine Pending BUN/Creatinine Ratio Pending Magnesium Cancelled Pending Hematology CBC w Diff NO MAN DIFF REQ WBC (4.8 - 10.8 /CUMM) 7.9 RBC (4.20 - 5.40 /CUMM) 3.59 L Hgb (12.0 - 16.0 G/DL) 9.4 L Hct (37 - 47 %) 28.7 L MCV (81.0 - 99.0 FL) 79.8 L MCH (27.0 - 31.0 PG) 26.2 L MCHC (33.0 - 37.0 G/DL) 32.8 L RDW (11.5 - 14.5 %) 16.9 H Plt Count (130 - 400 /CUMM) 189 MPV (7.4 - 10.4 FL) 9.9 Gran % (42.2 - 75.2 %) 78.6 H Lymphocytes % (20.5 - 51.1 %) 10.6 L Monocytes % (1.7 - 9.3 %) 7.3 Eosinophils % (0 - 5 %) 3.4 Basophils % (0.0 - 2.0 %) 0.1 Absolute Granulocytes (1.4 - 6.5 /CUMM) 6.2 Absolute Lymphocytes (1.2 - 3.4 /CUMM) 0.8 L Absolute Monocytes (0.10 - 0.60 /CUMM) 0.6 Absolute Eosinophils (0.0 - 0.7 /CUMM) 0.3 Absolute Basophils (0.0 - 0.2 /CUMM) 0 08/05 08/04 08/04 0415 1736 1138 Chemistry Sodium (137 - 145 mmol/L) 132 L Potassium (3.5 - 5.1 mmol/L) 3.7 Chloride (98 - 107 mmol/L) 101 Carbon Dioxide (22 - 30 mmol/L) 22 Anion Gap (5 - 16) 9 BUN (7 - 17 mg/dL) 26 H Creatinine (0.5 - 1.0 mg/dL) 2.3 H Estimated GFR (>60 ml/min) 20 L Glucose (65 - 99 mg/dL) 109 H Calcium (8.4 - 10.2 mg/dL) 8.0 L Phosphorus (2.5 - 4.5 mg/dL) 4.9 H Magnesium (1.6 - 2.3 mg/dL) 1.7 Total Bilirubin (0.2 - 1.3 mg/dL) 0.3 AST (14 - 36 U/L) 12 L ALT (9 - 52 U/L) 20 Troponin I (< 0.11 ng/ml) < 0.01 < 0.01 Albumin (3.5 - 5.0 g/dL) 2.4 L Hematology CBC w Diff NO MAN DIFF REQ WBC (4.8 - 10.8 /CUMM) 7.5 RBC (4.20 - 5.40 /CUMM) 3.30 L Hgb (12.0 - 16.0 G/DL) 8.8 L Hct (37 - 47 %) 26.2 L MCV (81.0 - 99.0 FL) 79.5 L MCH (27.0 - 31.0 PG) 26.6 L MCHC (33.0 - 37.0 G/DL) 33.5 RDW (11.5 - 14.5 %) 16.6 H Plt Count (130 - 400 /CUMM) 160 MPV (7.4 - 10.4 FL) 9.6 Gran % (42.2 - 75.2 %) 77.1 H Lymphocytes % (20.5 - 51.1 %) 10.9 L Monocytes % (1.7 - 9.3 %) 8.1 Eosinophils % (0 - 5 %) 3.5 Basophils % (0.0 - 2.0 %) 0.4 Absolute Granulocytes (1.4 - 6.5 /CUMM) 5.8 Absolute Lymphocytes (1.2 - 3.4 /CUMM) 0.8 L Absolute Monocytes (0.10 - 0.60 /CUMM) 0.6 Absolute Eosinophils (0.0 - 0.7 /CUMM) 0.3 Absolute Basophils (0.0 - 0.2 /CUMM) 0 Recent Imaging Studies: SERVICE DATE: 08/05/17- EXAM TYPE: RAD - XRY-MODIFIED BARIUM SWALLOW EXAMINATION: XR MODIFIED BARIUM SWALLOW CLINICAL INFORMATION: Left carotid endarterectomy with left facial weakness. COMPARISON: None. TECHNIQUE: Modified barium swallow was performed by the speech pathology service under fluoroscopic assistance FINDINGS: The modified barium swallow examination was performed in cooperation with the speech pathologist using dynamic fluoroscopic imaging in a lateral projection. The patient's swallowing function was observed during administration of: apple sauce puree, honey, nectar, thin barium contrast, and barium coated bread and cracker. Please refer to the speech pathology report regarding other examination details and recommendations. After deglutition, there was retention of barium within the vallecula. Although they were episodes of tracheal penetration with thin and nectar consistencies, there were no episodes of tracheal aspiration. Fluoroscopy time: 1.48 minutes. Total number of images: 12 IMPRESSION: There was post deglutition retention of material within the valleculae. Tracheal penetration with thin and nectar consistency barium without witnessed aspiration. Refer to the speech pathology report for details. SERVICE DATE: 08/05/17 EXAM TYPE: US - US-ABD/PELV ORGAN DOPPLER EXAMINATION: RENAL ARTERY DOPPLER ULTRASOUND CLINICAL INFORMATION: Labile hypertension. Rule out renal artery stenosis. COMPARISON: None. TECHNIQUE: Renal ultrasound. Doppler ultrasound (spectral analysis and color Doppler) of the renal arteries and aorta were performed. The exam was done portably. Technically challenging exam due to the patient's inability to follow instructions. FINDINGS: The right kidney measures 9.2 cm x 4.3 cm x 4.5 cm in sagittal, AP and transverse dimensions. The left kidney measures 8.8 cm x 4.7 cm x 3.9 cm in sagittal, AP and transverse dimensions. The kidneys show no masses, calculi or hydronephrosis. The corticomedullary differentiation is normal. RENAL ARTERY VELOCITIES: RIGHT: Proximally: 260 cm/s. Mid: 123 cm/s. Distal: 46 cm/s. LEFT: Proximally: 108 cm/s. Mid: 41 cm/s. Distally: 77 cm/s. The aortic velocity is 190 cm/s. IMPRESSION: There is elevated velocity within the proximal right renal artery. Note, this was a technically challenging exam which limits sensitivity. Consider further evaluation with CTA of the abdomen to better assess the renal arteries. SERVICE DATE: 08/05/17 EXAM TYPE: CAT - CT HEAD WO IV CONTRAST EXAMINATION: CT HEAD WITHOUT CONTRAST CLINICAL INFORMATION: Facial droop, visual symptoms. Assess for CVA. COMPARISON: None. TECHNIQUE: Contiguous axial imaging was performed from the skull base to vertex without intravenous administration of contrast. DLP: 614.78 mGy-cm FINDINGS: There is no evidence of acute intracranial hemorrhage or territorial infarction. No abnormal mass effect or midline shift is seen. Black to white matter differentiation is well preserved. No extra-axial fluid collections are identified. The ventricles and sulci are commensurately prominent consistent with moderate diffuse volume loss. Extensive low attenuation in the periventricular and subcortical white matter, most consistent with chronic microvascular ischemic changes. There are lacunar infarcts in the bilateral basal ganglia and in the rehana. There are extensive atheromatous calcifications of the cavernous internal carotid and vertebral arteries bilaterally. There have been bilateral lens extractions. There are severe degenerative changes of the left temporomandibular joint. Milder changes are seen on the right. The nasal septum is deviated to the right with a right-sided bony nasal septal spur posteriorly. The right mastoid air cells are poorly pneumatized. There is no significant opacification of the paranasal sinuses. IMPRESSION: 1. There are no acute bleeds or territorial infarcts. 2. There is extensive low attenuation in the white matter consistent with chronic microvascular ischemic disease and there are lacunar infarcts. 3. There is moderate diffuse volume loss. Assessment/Plan Assessment/Plan 77 F POD 4 s/p L CEA with marginal mandibular nerve palsy and persistent hypertension on a nitro gtt, which is being weaned. Head CAT scan was negative for hemorrhagic stroke and renal u/s revealed elevated velocity within the proximal right renal artery Wean nitro gtt Home htn meds adjusted, sprinolactone added Pain meds prn Eliquis, asa OOB to chair, ambulate Appreciate cardiology/renal/medicine involvement Will d/w Dr. Mcfarlane Core Measures Venous Thromboembolism VTE Risk Factors Surgery No Mechanical VTE Prophylaxis d/t N/A MechProphylax Ordered No VTE Pharm Prophylaxis d/t NA PharmProphylax ordered
[2017-08-06 08:00] VITALS: BP 184/60
--- NOTE | 2017-08-06 08:52 | PN- Resident CRCU ---
Subjective HPI/CRCU Issues: The patient was seen and examined the morning. She offers no complaints. No further episode of headache or visual symptoms. She denies any dizziness, lightheadedness, nausea, vomiting, chest pain, shortness of breath, abdominal pain. Has been out of bed to chair. Blood pressure better controlled. Objective Vital Signs & I&O Last 8 Hrs of Vitals and I&O: Intake & Output 08/06 1600 Intake Total 700 Output Total 200 Balance 500 Intake, IV 340 Intake, Oral 360 Output, Urine 200 Patient 130 lb Weight Exam General Appearance: well developed/nourished, no apparent distress, alert, awake Other Physical Findings: Head: atraumatic, normal appearance Ears, Nose, Throat: normal pharynx Neck: supple Respiratory: normal breath sounds, chest non-tender Cardiovascular: regular rate/rhythm Gastrointestinal: normal bowel sounds, soft, non-tender Extremities: normal inspection, no edema Cranial Nerves: PERRL, slight dysarthria Skin: intact Skin Temp/Moisture Exam: Warm/Dry Sepsis Skin Exam (color): Normal for Ethnicity Other Physical Findings: Cranial nerves II, 3, 4, 6: Intact, cranial nerve V: facial sensation intact, focal weakness of the depressors of the left lower lip imporving compared to prior exam. Cranial nerve VII, 8, 9, 10, 11, 12 intact. Current Medications: Current Medications Sig/Antoinette Start time Last Medication Dose Route Stop Time Status Admin Amlodipine Besylate 10 MG DAILY 08/03 1000 AC 08/06 PO 0931 Apixaban 2.5 MG BID 08/03 1000 AC 08/06 PO 09 Aspirin Buffered 81 MG DAILY 08/06 1000 AC 08/06 PO 0927 Atorvastatin Calcium 80 MG 1700 08/02 1700 AC 08/06 PO 1720 Benzocaine/Menthol 1 ANDREA Q2P PRN 08/03 2014 AC PO Carvedilol 3.125 MG BID 08/02 2199 AC 08/05 PO 2246 Clonidine 0.6 MG BID 08/03 2199 AC 08/06 PO 0745 Doxazosin Mesylate 4 MG BID 08/030 AC 08/06 PO 1014 Furosemide 40 MG QAM 08/07 1000 AC PO Furosemide 20 MG QPM 08/06 220 AC PO Furosemide 40 MG DAILY 08/05 1000 DC 08/06 PO 0931 Glycerin 2 SPRAY Q2P PRN 08/03 2129 AC 08/03 PO 2310 Hydroxychloroquine 200 MG DAILY 08/02 1515 AC 08/06 Sulfate PO 1247 Isosorbide 120 MG DAILY 08/03 1000 AC 08/06 Mononitrate PO 1014 Magnesium Oxide 400 MG DAILY 08/03 1643 AC 08/06 PO 1247 Morphine Sulfate 2 MG Q2P PRN 08/03 0345 AC 08/03 IV 0334 Nitroglycerin 25 MG Q3H 08/03 1400 AC 08/06 Dextrose/Water 250 ML IV 1019 Omeprazole 40 MG DAILY AC 08/02 1507 AC 08/06 PO 0711 Ondansetron HCl 4 MG Q6P PRN 08/02 1215 AC IV Phenol 2 SPRAY Q2P PRN 08/04 1115 AC 08/05 EXT 2251 Senna/Docusate Sodium 2 TAB DAILY NEEDED PRN 08/06 1300 AC PO Sertraline HCl 25 MG DAILY 08/02 1515 AC 08/06 PO 0928 Spironolactone 50 MG DAILY 08/05 1541 AC 08/06 PO 1014 Valsartan 160 MG BID 08/05 2200 AC 08/06 PO 0929 Impression/Plan Impression/Problem List Impression: This is a 77-year-old lady with past medical history significant for an NSTEMI 2015, labile hypertension on multiple medications, paroxysmal atrial fibrillation, HFpEF, PAD, tachybradycardia syndrome, GERD, CKD stage V secondary to hypertensive nephrosclerosis diagnosed in 2008, iron deficiency anemia, 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 Medical team was consulted for help with management of hypertension. Problem list: #Mild dysarthria, left lower lip droop-Improving; likely 2/2 focal nerve injury of the marginal mandibular nerve, a branch of the facial nerve #Labile hypertenstion/hypertensive urgency #Paroxysmal A.fib on oral AC Plan: * Head CT negative for any acute pathology * Monitor closely in the ICU * Blood pressures better controlled today * Frequent neuro checks * Currently on amlodipine 10 mg daily, carvedilol 3.125 twice a day, clonidine 0.6 twice a day, doxazosin 4 mg twice a day, furosemide 40 mg a.m., 20 mg p.m., Imdur 120 daily, nitroglycerin drip, spironolactone 50 mg daily, valsartan 160 mg twice a day * Follow cardiology and nephrology recommendation regarding antihypertensive adjustments * She is allergic to hydralazine, also is bradycardic; options for IV antihypertensives are limited. * Monitor heart rate * Was evaluated by speech therapy for swallowing and underwent modified barium swallow. * Per nephrology, her baseline blood pressure runs in the [id number] systolic. * Renal artery ultrasound revealed elevated velocity within the proximal right renal artery. Note, thiswas a technically challenging exam which limits sensitivity. Consider further evaluation with CTA of the abdomen to better assess the renal arteries. * Per nephrology, the result of renal artery ultrasound would not change medical management at this point. * Neurology evaluated the patient recommended continue antiplatelets. The patient is not on any antiplatelets. Discussed via phone with Dr. Riggs;whatever surgical team decides would be okay; as patient is asymptomatic. * PT * Other problems management as per surgical team. Problem List: 1. Hypertensive urgency Pain Ratin Tomorrow's Labs & Rationales: Would recommend CBC, ICU bundle Plan DVT/Prophylaxis: pharmacological
--- NOTE | 2017-08-06 10:15 | PN- CRCU ---
Subjective HPI/Critical Care Issues: Little better BP improving facial droop present Objective Current Medications: Current Medications Sig/Antoinette Start time Last Medication Dose Route Stop Time Status Admin Amlodipine Besylate 10 MG DAILY 08/03 1000 AC 08/06 PO 0931 Apixaban 2.5 MG BID 08/03 1000 AC 08/06 PO 0927 Aspirin Buffered 81 MG DAILY 08/06 1000 AC 08/06 PO 0927 Atorvastatin Calcium 80 MG 1700 08/02 1700 AC 08/05 PO 1813 Benzocaine/Menthol 1 ANDREA Q2P PRN 08/03 2015 AC PO Carvedilol 3.125 MG BID 08/02 2200 AC 08/05 PO 2246 Clonidine 0.6 MG BID 08/03 2200 AC 08/06 PO 0745 Doxazosin Mesylate 4 MG BID 08/03 2200 AC 08/05 PO 2246 Furosemide 40 MG DAILY 08/05 1000 AC 08/06 PO 0931 Glycerin 2 SPRAY Q2P PRN 08/03 2130 AC 08/03 PO 2310 Hydroxychloroquine 200 MG DAILY 08/02 1515 AC 08/05 Sulfate PO 1628 Isosorbide 120 MG DAILY 08/03 1000 AC 08/05 Mononitrate PO 0857 Losartan Potassium 50 MG BID 08/02 1815 DC 08/05 PO 0858 Magnesium Oxide 400 MG DAILY 08/03 1643 AC 08/05 PO 1628 Magnesium Sulfate 1 GM ONCE ONE 08/05 0700 DC 08/05 Dextrose/Water 100 ML IV 08/05 1059 0939 Morphine Sulfate 2 MG Q2P PRN 08/03 0345 AC 08/03 IV 0334 Nitroglycerin 25 MG Q3H 08/03 1400 AC 08/06 Dextrose/Water 250 ML IV 0430 Omeprazole 40 MG DAILY AC 08/02 1507 AC 08/06 PO 0711 Ondansetron HCl 4 MG Q6P PRN 08/02 1215 AC IV Phenol 2 SPRAY Q2P PRN 08/04 1115 AC 08/05 EXT 2251 Sertraline HCl 25 MG DAILY 08/02 1515 AC 08/06 PO 0928 Spironolactone 50 MG DAILY 08/05 1541 AC 08/05 PO 1625 Valsartan 160 MG BID 08/05 2200 AC 08/06 PO 0929 Vital Signs & I&O Last 24 Hrs of Vitals and I&O: Vital Signs Date Time Temp Pulse Resp B/P B/P Pulse O2 O2 Flow FiO2 Mean Ox Delivery Rate 08/06 0931 44 191/84 08/06 0929 43 191/84 08/06 0800 99.0 48 18 184/60 94 Room Air 08/06 0800 94 Room Air 08/06 0745 45 188/74 08/06 0400 93 Room Air 08/06 0000 99.0 52 25 184/87 94 Room Air 08/06 0000 94 Room Air 08/05 2248 56 196/87 08/05 2246 56 196/87 08/05 2245 56 196/87 08/05 2000 96 Room Air 08/05 1600 98.1 42 18 160/70 94 Room Air 08/05 1600 94 Room Air 08/05 1200 92 Room Air Intake & Output 08/06 1600 08/06 0800 08/06 0000 Intake Total 444 727 Output Total 200 Balance 244 727 Intake, IV 384 487 Intake, Oral 60 240 Number 0 0 Bowel Movements Output, Urine 200 Patient 130 lb Weight Laboratory Tests 08/06 08/06 0500 0500 Chemistry Sodium (137 - 145 mmol/L) 132 L Potassium (3.5 - 5.1 mmol/L) 4.3 Chloride (98 - 107 mmol/L) 101 Carbon Dioxide (22 - 30 mmol/L) 23 Anion Gap (5 - 16) 8 BUN (7 - 17 mg/dL) 27 H Creatinine (0.5 - 1.0 mg/dL) 2.1 H Estimated GFR (>60 ml/min) 23 L BUN/Creatinine Ratio (7 - 25 %) 12.9 Magnesium (1.6 - 2.3 mg/dL) Cancelled 2.2 Hematology CBC w Diff NO MAN DIFF REQ WBC (4.8 - 10.8 /CUMM) 7.9 RBC (4.20 - 5.40 /CUMM) 3.59 L Hgb (12.0 - 16.0 G/DL) 9.4 L Hct (37 - 47 %) 28.7 L MCV (81.0 - 99.0 FL) 79.8 L MCH (27.0 - 31.0 PG) 26.2 L MCHC (33.0 - 37.0 G/DL) 32.8 L RDW (11.5 - 14.5 %) 16.9 H Plt Count (130 - 400 /CUMM) 189 MPV (7.4 - 10.4 FL) 9.9 Gran % (42.2 - 75.2 %) 78.6 H Lymphocytes % (20.5 - 51.1 %) 10.6 L Monocytes % (1.7 - 9.3 %) 7.3 Eosinophils % (0 - 5 %) 3.4 Basophils % (0.0 - 2.0 %) 0.1 Absolute Granulocytes (1.4 - 6.5 /CUMM) 6.2 Absolute Lymphocytes (1.2 - 3.4 /CUMM) 0.8 L Absolute Monocytes (0.10 - 0.60 /CUMM) 0.6 Absolute Eosinophils (0.0 - 0.7 /CUMM) 0.3 Absolute Basophils (0.0 - 0.2 /CUMM) 0 08/05 08/04 08/04 0415 1736 1138 Chemistry Sodium (137 - 145 mmol/L) 132 L Potassium (3.5 - 5.1 mmol/L) 3.7 Chloride (98 - 107 mmol/L) 101 Carbon Dioxide (22 - 30 mmol/L) 22 Anion Gap (5 - 16) 9 BUN (7 - 17 mg/dL) 26 H Creatinine (0.5 - 1.0 mg/dL) 2.3 H Estimated GFR (>60 ml/min) 20 L Glucose (65 - 99 mg/dL) 109 H Calcium (8.4 - 10.2 mg/dL) 8.0 L Phosphorus (2.5 - 4.5 mg/dL) 4.9 H Magnesium (1.6 - 2.3 mg/dL) 1.7 Total Bilirubin (0.2 - 1.3 mg/dL) 0.3 AST (14 - 36 U/L) 12 L ALT (9 - 52 U/L) 20 Troponin I (< 0.11 ng/ml) < 0.01 < 0.01 Albumin (3.5 - 5.0 g/dL) 2.4 L Hematology CBC w Diff NO MAN DIFF REQ WBC (4.8 - 10.8 /CUMM) 7.5 RBC (4.20 - 5.40 /CUMM) 3.30 L Hgb (12.0 - 16.0 G/DL) 8.8 L Hct (37 - 47 %) 26.2 L MCV (81.0 - 99.0 FL) 79.5 L MCH (27.0 - 31.0 PG) 26.6 L MCHC (33.0 - 37.0 G/DL) 33.5 RDW (11.5 - 14.5 %) 16.6 H Plt Count (130 - 400 /CUMM) 160 MPV (7.4 - 10.4 FL) 9.6 Gran % (42.2 - 75.2 %) 77.1 H Lymphocytes % (20.5 - 51.1 %) 10.9 L Monocytes % (1.7 - 9.3 %) 8.1 Eosinophils % (0 - 5 %) 3.5 Basophils % (0.0 - 2.0 %) 0.4 Absolute Granulocytes (1.4 - 6.5 /CUMM) 5.8 Absolute Lymphocytes (1.2 - 3.4 /CUMM) 0.8 L Absolute Monocytes (0.10 - 0.60 /CUMM) 0.6 Absolute Eosinophils (0.0 - 0.7 /CUMM) 0.3 Absolute Basophils (0.0 - 0.2 /CUMM) 0 Impression/Plan Impression/Plan Impression/Plan: Physical Exam: Gen - OK appearing HEENT - L cheek "pulled down" at area of tape CV - RRR, no m/r/g Chest - clear anteriorly, no w/r/r Abd - soft, NTND Ext - no edema Neuro - AOX3, grossly nonfocal Lady with chronic kidney disease stage III, proteinuria, without history of diabetes, 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, poorly controlled hypertension on multiple medications, recent left carotid endarterectomy for asymptomatic carotid stenosis, significant labile blood pressure, recent facial nerve focal injury per neurology, peripheral artery disease, small blood vessel disease in the brain now has * Severe uncontrolled hypertension on multiple medications which is slowly improving * Probable renal artery stenosis on the right side with ultrasound * Chronic kidney disease stage III * Severe vascular disease now status post carotid endarterectomy * Mild facial droop-like abnormality most likely related to partial branch facial nerve Palsy per neurology with no clinical evidence suggestive of acute stroke * 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 * Proximal atrial fibrillation with chronic heart failure with preserved ejection fraction, on anticoag * Discomfort of the chest with no active coronary ischemia REC * Aggressive blood pressure management per renal and cardiology * Keep the head of bed elevated * Continue low-dose Apixaban * Frequent neuro checks * Wean off nitro drip today * OOB to chair * Continue high dose Imdur * PT now on spironolactone and valsartan (might help her as she may have renal artery stenosis), continue the dose and increase per renal * Continue clonidine, doxazosin * Continue amlodapine * Pain control * Continue low-dose Coreg and watch her heart rate as she is bradycardic * Aggressive lipid-lowering therapy We will follow closely The patient, Patient is critically ill total time spent 36 minutes
--- NOTE | 2017-08-06 11:11 | PN- Nephrology ---
Assessment/Plan Nephrology Assessment: Stage IV CKD - baseline Cr normally around 3. 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 HTN - Blood pressure remains elevated. Finding medicines given her intolerances /allergies has proven to be difficult. Should note that her Valsartan is not maxed out (320mg). I would be hesitant to max this out and send her out on spironolactone as well. May be best to keep things as is with RAAS inhibition. We could be more aggressive about the diuretics Suggestion: -Increase lasix to 40mg qAM and 20mg qPM -Maintain other antihypertensives and wean off nitro gtt Please call [phone] with ?'s Subjective Subjective: SBP remains elevated to 190's Current regimen with amlodipine 10mg, carvedilol 3.125mg BID, clonidine 0.6mg BID, doxazosin 4mg BID, lasix 40mg daily, imdur 120mg daily, nitro gtt, valsartan 120mg daily, spironolactone 50mg daily Swallowing noted to be OK - had barium swallow with tracheal penetration but no aspiration SCr 2.1 Hg 9.4 Objective Vital Signs and I&Os Vital Signs Date Time Temp Pulse Resp B/P B/P Pulse O2 O2 Flow FiO2 Mean Ox Delivery Rate 08/06 1014 192/76 / 0931 44 191/84 / 0929 43 191/84 03/ 0800 99.0 48 18 184/60 94 Room Air 03/ 0800 94 Room Air 03/ 0745 45 188/74 / 0400 93 Room Air 03/ 0000 99.0 52 25 184/87 94 Room Air 03/ 0000 94 Room Air 03/ 2248 56 196/87 / 2246 56 196/87 08/05 2245 56 196/87 08/06 1999 96 Room Air / 1600 98.1 42 18 160/70 94 Room Air 03/ 1600 94 Room Air / 1200 92 Room Air Intake & Output / 1600 / 0400 / 1600 08/05 0400 08/04 1600 08/04 0400 Intake Total 042 565 4314 616 1469 1015 Output Total 200 150 200 200 Balance 883 186 0986 616 1269 815 Intake, IV 082 673 4294 516 849 635 Intake, Oral 60 240 60 100 620 380 Number 0 0 0 0 Bowel Movements Output, Urine 200 150 200 200 Patient 130 lb Weight Physical Exam: Gen - OK appearing HEENT - L cheek "pulled down" at area of tape CV - RRR, no m/r/g Chest - clear anteriorly, no w/r/r Abd - soft, NTND Ext - no edema Neuro - AOX3, grossly nonfocal Current Medications: Current Medications Sig/Antoinette Start time Last Medication Dose Route Stop Time Status Admin Amlodipine Besylate 10 MG DAILY 08/03 1000 AC 08/06 PO 0931 Apixaban 2.5 MG BID 08/03 1000 AC 08/06 PO 0927 Aspirin Buffered 81 MG DAILY 08/06 1000 AC 08/06 PO 0927 Atorvastatin Calcium 80 MG 1700 08/02 1700 AC 08/05 PO 1813 Benzocaine/Menthol 1 ANDREA Q2P PRN 08/03 2014 AC PO Carvedilol 3.125 MG BID 08/02 2200 AC 08/05 PO 2246 Clonidine 0.6 MG BID 08/03 2200 AC 08/06 PO 0745 Doxazosin Mesylate 4 MG BID 08/03 2200 AC 08/06 PO 1014 Furosemide 40 MG DAILY 08/05 1000 AC 08/06 PO 0931 Glycerin 2 SPRAY Q2P PRN 08/03 2130 AC 08/03 PO 2310 Hydroxychloroquine 200 MG DAILY 08/02 1515 AC 08/05 Sulfate PO 1628 Isosorbide 120 MG DAILY 08/03 1000 AC 08/06 Mononitrate PO 1014 Losartan Potassium 50 MG BID 08/02 1815 DC 08/05 PO 0858 Magnesium Oxide 400 MG DAILY 08/03 1643 AC 08/05 PO 1628 Morphine Sulfate 2 MG Q2P PRN 08/03 0345 AC 08/03 IV 0334 Nitroglycerin 25 MG Q3H 08/03 1400 AC 08/06 Dextrose/Water 250 ML IV 1019 Omeprazole 40 MG DAILY AC 08/02 1507 AC 08/06 PO 0711 Ondansetron HCl 4 MG Q6P PRN 08/02 1215 AC IV Phenol 2 SPRAY Q2P PRN 08/04 1115 AC 08/05 EXT 2251 Sertraline HCl 25 MG DAILY 08/02 1515 AC 08/06 PO 0928 Spironolactone 50 MG DAILY 08/05 1541 AC 08/06 PO 1014 Valsartan 160 MG BID 08/05 2200 AC 08/06 PO 0929 Results Pertinent Lab Results: Laboratory Tests 08/06 08/06 0500 0500 Chemistry Sodium (137 - 145 mmol/L) 132 L Potassium (3.5 - 5.1 mmol/L) 4.3 Chloride (98 - 107 mmol/L) 101 Carbon Dioxide (22 - 30 mmol/L) 23 Anion Gap (5 - 16) 8 BUN (7 - 17 mg/dL) 27 H Creatinine (0.5 - 1.0 mg/dL) 2.1 H Estimated GFR (>60 ml/min) 23 L BUN/Creatinine Ratio (7 - 25 %) 12.9 Magnesium (1.6 - 2.3 mg/dL) Cancelled 2.2 Hematology CBC w Diff NO MAN DIFF REQ WBC (4.8 - 10.8 /CUMM) 7.9 RBC (4.20 - 5.40 /CUMM) 3.59 L Hgb (12.0 - 16.0 G/DL) 9.4 L Hct (37 - 47 %) 28.7 L MCV (81.0 - 99.0 FL) 79.8 L MCH (27.0 - 31.0 PG) 26.2 L MCHC (33.0 - 37.0 G/DL) 32.8 L RDW (11.5 - 14.5 %) 16.9 H Plt Count (130 - 400 /CUMM) 189 MPV (7.4 - 10.4 FL) 9.9 Gran % (42.2 - 75.2 %) 78.6 H Lymphocytes % (20.5 - 51.1 %) 10.6 L Monocytes % (1.7 - 9.3 %) 7.3 Eosinophils % (0 - 5 %) 3.4 Basophils % (0.0 - 2.0 %) 0.1 Absolute Granulocytes (1.4 - 6.5 /CUMM) 6.2 Absolute Lymphocytes (1.2 - 3.4 /CUMM) 0.8 L Absolute Monocytes (0.10 - 0.60 /CUMM) 0.6 Absolute Eosinophils (0.0 - 0.7 /CUMM) 0.3 Absolute Basophils (0.0 - 0.2 /CUMM) 0 08/05 08/04 08/04 08/04 0415 1736 1138 0410 Chemistry Sodium (137 - 145 mmol/L) 132 L 131 L Potassium (3.5 - 5.1 mmol/L) 3.7 3.7 Chloride (98 - 107 mmol/L) 101 99 Carbon Dioxide (22 - 30 mmol/L) 22 23 Anion Gap (5 - 16) 9 10 BUN (7 - 17 mg/dL) 26 H 25 H Creatinine (0.5 - 1.0 mg/dL) 2.3 H 2.6 H Estimated GFR (>60 ml/min) 20 L 18 L BUN/Creatinine Ratio (7 - 25 %) 9.6 Glucose (65 - 99 mg/dL) 109 H Calcium (8.4 - 10.2 mg/dL) 8.0 L Phosphorus (2.5 - 4.5 mg/dL) 4.9 H Magnesium (1.6 - 2.3 mg/dL) 1.7 1.7 Total Bilirubin (0.2 - 1.3 mg/dL) 0.3 AST (14 - 36 U/L) 12 L ALT (9 - 52 U/L) 20 Troponin I (< 0.11 ng/ml) < 0.01 < 0.01 Albumin (3.5 - 5.0 g/dL) 2.4 L Hematology CBC w Diff NO MAN DIFF REQ WBC (4.8 - 10.8 /CUMM) 7.5 RBC (4.20 - 5.40 /CUMM) 3.30 L Hgb (12.0 - 16.0 G/DL) 8.8 L Hct (37 - 47 %) 26.2 L MCV (81.0 - 99.0 FL) 79.5 L MCH (27.0 - 31.0 PG) 26.6 L MCHC (33.0 - 37.0 G/DL) 33.5 RDW (11.5 - 14.5 %) 16.6 H Plt Count (130 - 400 /CUMM) 160 MPV (7.4 - 10.4 FL) 9.6 Gran % (42.2 - 75.2 %) 77.1 H Lymphocytes % (20.5 - 51.1 %) 10.9 L Monocytes % (1.7 - 9.3 %) 8.1 Eosinophils % (0 - 5 %) 3.5 Basophils % (0.0 - 2.0 %) 0.4 Absolute Granulocytes (1.4 - 6.5 /CUMM) 5.8 Absolute Lymphocytes (1.2 - 3.4 /CUMM) 0.8 L Absolute Monocytes (0.10 - 0.60 /CUMM) 0.6 Absolute Eosinophils (0.0 - 0.7 /CUMM) 0.3 Absolute Basophils (0.0 - 0.2 /CUMM) 0 Imaging/Other Studies: Barium Swallow IMPRESSION: There was post deglutition retention of material within the valleculae. Tracheal penetration with thin and nectar consistency barium without witnessed aspiration. Refer to the speech pathology report for details.
--- NOTE | 2017-08-06 12:18 | PN- Cardiology ---
Subjective Subjective: The patient appears to be doing slightly better today. She is awake and alert. She denies any specific complaints. IV nitroglycerin being tapered. Blood pressure slightly improved. Objective Vital Signs and I&Os Vital Signs Date Time Temp Pulse Resp B/P B/P Pulse O2 O2 Flow FiO2 Mean Ox Delivery Rate 08/06 1014 192/76 08/06 0931 44 191/84 08/06 0929 43 191/84 08/06 0800 99.0 48 18 184/60 94 Room Air 08/06 0800 94 Room Air 08/06 0745 45 188/74 08/06 0400 93 Room Air 08/06 0000 99.0 52 25 184/87 94 Room Air 08/06 0000 94 Room Air 08/05 2248 56 196/87 08/05 2246 56 196/87 08/05 2245 56 196/87 08/05 2000 96 Room Air 08/05 1600 98.1 42 18 160/70 94 Room Air 08/05 1600 94 Room Air Intake & Output 08/06 1600 08/06 0800 08/06 0000 08/05 1600 08/05 0800 08/05 0000 Intake Total 444 727 760 525 616 Output Total 200 150 Balance 244 727 610 525 616 Intake, IV 384 487 700 525 516 Intake, Oral 60 240 60 100 Number 0 0 Bowel Movements Output, Urine 200 150 Patient 130 lb Weight Physical Exam: No acute distress, awake and alert with no specific complaints CVS: S1, S2 irregular, systolic murmur 2-3/6 Chest: clear to auscultation Abdomen: soft, nontender Lower extremity: no swelling Neurologic: right facial droop, facial nerve exam normal, motor 5/5 Current Medications: Current Medications Sig/Antoinette Start time Last Medication Dose Route Stop Time Status Admin Amlodipine Besylate 10 MG DAILY 08/03 999 AC 08/06 PO 930 Apixaban 2.5 MG BID 08/03 1000 AC 08/06 PO 926 Aspirin Buffered 81 MG DAILY 08/06 1000 AC 08/06 PO 09 Atorvastatin Calcium 80 MG 1700 08/02 1700 AC 08/05 PO 1813 Benzocaine/Menthol 1 ANDREA Q2P PRN 08/03 2014 AC PO Carvedilol 3.125 MG BID 08/02 2199 AC 08/05 PO 224 Clonidine 0.6 MG BID 08/03 2199 AC 08/06 PO 0745 Doxazosin Mesylate 4 MG BID 08/03 2200 AC 08/06 PO 1014 Furosemide 40 MG QAM 08/07 1000 AC PO Furosemide 20 MG QPM 08/06 2200 AC PO Furosemide 40 MG DAILY 08/05 1000 DC 08/06 PO 0931 Glycerin 2 SPRAY Q2P PRN 08/03 2130 AC 08/03 PO 2310 Hydroxychloroquine 200 MG DAILY 08/02 1515 AC 08/05 Sulfate PO 1628 Isosorbide 120 MG DAILY 08/03 1000 AC 08/06 Mononitrate PO 1014 Losartan Potassium 50 MG BID 08/02 1815 DC 08/05 PO 0858 Magnesium Oxide 400 MG DAILY 08/03 1643 AC 08/05 PO 1628 Morphine Sulfate 2 MG Q2P PRN 08/03 0345 AC 08/03 IV 0334 Nitroglycerin 25 MG Q3H 08/03 1400 AC 08/06 Dextrose/Water 250 ML IV 1019 Omeprazole 40 MG DAILY AC 08/02 1507 AC 08/06 PO 0711 Ondansetron HCl 4 MG Q6P PRN 08/02 1215 AC IV Phenol 2 SPRAY Q2P PRN 08/04 1115 AC 08/05 EXT 2251 Sertraline HCl 25 MG DAILY 08/02 1515 AC 08/06 PO 0928 Spironolactone 50 MG DAILY 08/05 1541 AC 08/06 PO 1014 Valsartan 160 MG BID 08/05 2200 AC 08/06 PO 0929 Results Last 48 Hrs of Labs/Mics: Laboratory Tests 08/06/17 0500: Magnesium Cancelled 08/06/17 0500: Anion Gap 8, Estimated GFR 23 L, BUN/Creatinine Ratio 12.9, Magnesium 2.2, CBC w Diff NO MAN DIFF REQ, RBC 3.59 L, MCV 79.8 L, MCH 26.2 L, MCHC 32.8 L, RDW 16.9 H, MPV 9.9, Gran % 78.6 H, Lymphocytes % 10.6 L, Monocytes % 7.3, Eosinophils % 3.4, Basophils % 0.1, Absolute Granulocytes 6.2, Absolute Lymphocytes 0.8 L, Absolute Monocytes 0.6, Absolute Eosinophils 0.3, Absolute Basophils 0 08/05/17 0415: Anion Gap 9, Estimated GFR 20 L, Glucose 109 H, Calcium 8.0 L, Phosphorus 4.9 H, Magnesium 1.7, Total Bilirubin 0.3, AST 12 L, ALT 20, Albumin 2.4 L, CBC w Diff NO MAN DIFF REQ, RBC 3.30 L, MCV 79.5 L, MCH 26.6 L, MCHC 33.5, RDW 16.6 H, MPV 9.6, Gran % 77.1 H, Lymphocytes % 10.9 L, Monocytes % 8.1, Eosinophils % 3.5, Basophils % 0.4, Absolute Granulocytes 5.8, Absolute Lymphocytes 0.8 L, Absolute Monocytes 0.6, Absolute Eosinophils 0.3, Absolute Basophils 0 08/04/17 1736: Troponin I < 0.01 Assessment/Plan Assessment/Plan Assessment: 1. Paroxysmal atrial fibrillation 2. HFPEF EF 60-65% 3. POD#4 status post carotid endarterectomy 4. Hypertensive urgency 5. Sinus Bradycardia 6. Chronic kidney disease stage 4 7. Possible right renal artery stenosis by doppler ultrasound Recommendation 1. Records from patient's telemetry rn Dr. Riddle were reviewed, no evidence of MRA renal arteries having been performed by review of those records 2. Continue tapering nitroglycerin drip as tolerated by blood pressure today is day 3 and patient is on imdur as well 3. Continue current Lasix dose, continue monitor kidney function, strict I&O 4. Continue clonidine 0.6 milligrams twice a day, Doxazosin 4 mg BID, Imdur 120 mg daily, norvasc 10 mg daily, losartan 50 mg daily, coreg 3.125 BID 5. Avoid any additional rate lowering medications in view of persistent sinus bradycardia 6. Consider obtaining renal vessels ultrasound to rule out stenosis 7. Consider managing other causes that might increase blood pressure like pain and anxiety 8. Await further input from nephrology. Consider trial of home on valsartan and in place of losartan 9. Renal artery doppler ultrasound results noted. Significance unclear. Will review the images and discuss further with Drs. Mcfarlane and Rafy. Continue telemetry? Yes
--- NOTE | 2017-08-06 15:42 | PN- Vascular Surgery ---
Surgical Brief Attending Note Brief Attending Note: VASCULAR ATTENDING NOTE: Pt. now POD #4 s/p L. CEA with long course related to hypertension. BP better controlled today. PE: AF/VSS Neuro: marginal mandib. palsy resolving, no other defecits Neck: Soft Renal DUS-? R. LUCILLE A/P S/P CEA with elevated BP still on nitro gtt.\ 1.) If stable on BP meds may d/c home with outpatient f/u for ?LUCILLE 2.) If BP still a problem will consider renal artery angio/?intervention 08/09 3.) Cardiology care appreciated 4.) PT eval.
[2017-08-06 16:00] VITALS: BP 186/76
[2017-08-07] VITALS: BP 172/60
[2017-08-07 05:19] LABS: ABSOLUTE BASOPHIL COUNT 0 /CUMM (0.0-0.2); ABSOLUTE EOSINOPHIL COUNT 0.3 /CUMM (0.0-0.7); ABSOLUTE LYMPH COUNT 1.1 /CUMM (1.2-3.4); ABSOLUTE MONOCYTE COUNT 0.6 /CUMM (0.10-0.60); BASOPHIL % 0.4 % (0.0-2.0); GRANULOCYTE % 75.1 % (42.2-75.2); HEMATOCRIT 28.8 % (37-47); MEAN CORPUSCULAR HGB 26.3 PG (27.0-31.0); MEAN CORPUSCULAR HGB CONC 32.9 G/DL (33.0-37.0); MEAN CORPUSCULAR VOLUME 79.9 FL (81.0-99.0); MEAN PLATELET VOLUME 10.2 FL (7.4-10.4); PLATELET COUNT 187 /CUMM (130-400); RBC DISTRIBUTION WIDTH 16.4 % (11.5-14.5); RED BLOOD CELL CT 3.61 /CUMM (4.20-5.40)
--- NOTE | 2017-08-07 05:58 | PN- Vascular Surgery ---
Subjective Subjective: remains in ICU for HTN, need for iv meds. remains on nitro gtt with sbp 180s- 200s overnight, hr 40-50s. denies cp/sob/n/v. "i want to go home" Objective Vital Signs and I&Os Vital Signs Date Time Temp Pulse Resp B/P B/P Pulse O2 O2 Flow FiO2 Mean Ox Delivery Rate 08/07 0400 93 Room Air / 0000 93 Room Air 08/07 0000 98.2 47 17 172/60 93 Room Air 08/06 2133 48 15 178/68 / 2132 47 178/68 / 2131 48 15 178/68 / 2000 93 Room Air / 1600 98.0 41 18 186/76 93 Room Air 08/06 1600 93 Room Air / 1200 93 Room Air 08/06 1014 192/76 /02 1000 40 /02 0931 44 191/84 08/06 0929 43 191/84 / 0800 99.0 48 18 184/60 94 Room Air 08/06 0800 94 Room Air 08/06 0745 45 188/74 Intake & Output / 0800 03/03 0000 03/02 1600 /02 0800 /02 0000 03/01 1600 Intake Total 527.7 700 444 727 760 Output Total 850 200 200 150 Balance -322.3 500 244 727 610 Intake, IV 187.7 340 384 487 700 Intake, Oral 340 360 60 240 60 Number 2 0 0 Bowel Movements Output, Urine 850 200 200 150 Patient 130 lb Weight Physical Exam: GEN: NAD NECK/INCIS: dressing cdi, l facial nerve palsy improved CARD: S1S2 RRR PULM: CTAB ABD: soft, nt EXT: calves soft nt Assessment/Plan Assessment/Plan A: 77F POD5 sp L CEA, with HTN still requiring nitro gtt and multiple PO meds, with impriving mandibular nerve palsy. P: - eliquis bid - diet as tolerated - prn pain meds - OOB, ambulate - am labs - will watch htn- if improves, may dc home on home meds. If htn persists, will possibly require renal artery intervention on wednesday. wean nitro gtt - appreciate renal/card input - will dw attending Core Measures Venous Thromboembolism VTE Risk Factors Surgery No Mechanical VTE Prophylaxis d/t N/A MechProphylax Ordered No VTE Pharm Prophylaxis d/t NA PharmProphylax ordered
[2017-08-07 08:00] VITALS: BP 170/50
--- NOTE | 2017-08-07 08:10 | PN- Resident CRCU ---
Adeline Stover 08/07/17 0809: Subjective HPI/CRCU Issues: Labile hypertension Tachybradycardia syndrome Paroxysmal Atrial fibrillation Angina CKD stage V Fe deficiency anemia Left CEA 24 Hour Events: Seen and examined patient. Offers no complaints. Sitting in bed comfortably Denies fever, chills, shortness of breath, chest pain. Overnig her blood pressure was in the 20s systolic they had to increase her nitroglycerin drip to 55 Afebrile overnight, sinus bradycardia heart rate 4148, noted to be bradycardic to high 30s Blood pressure systolic 348903, diastolic 5392 saturating 93% on room air Objective Vital Signs & I&O Last 8 Hrs of Vitals and I&O: Intake & Output 08/07 1600 08/07 0800 08/07 0000 Intake Total 330 527.7 Output Total 600 850 Balance -270 -322.3 Intake, IV 210 187.7 Intake, Oral 120 340 Number 0 2 Bowel Movements Output, Urine 600 850 Laboratory Tests 08/07 0425 Chemistry Sodium (137 - 145 mmol/L) 134 L Potassium (3.5 - 5.1 mmol/L) 4.3 Chloride (98 - 107 mmol/L) 101 Carbon Dioxide (22 - 30 mmol/L) 24 Anion Gap (5 - 16) 8 BUN (7 - 17 mg/dL) 32 H Creatinine (0.5 - 1.0 mg/dL) 2.3 H Estimated GFR (>60 ml/min) 20 L Glucose (65 - 99 mg/dL) 105 H Calcium (8.4 - 10.2 mg/dL) 8.5 Phosphorus (2.5 - 4.5 mg/dL) 4.7 H Magnesium (1.6 - 2.3 mg/dL) 2.2 Total Bilirubin (0.2 - 1.3 mg/dL) 0.4 AST (14 - 36 U/L) 16 ALT (9 - 52 U/L) 21 Albumin (3.5 - 5.0 g/dL) 2.8 L Hematology CBC w Diff NO MAN DIFF REQ WBC (4.8 - 10.8 /CUMM) 8.0 RBC (4.20 - 5.40 /CUMM) 3.61 L Hgb (12.0 - 16.0 G/DL) 9.5 L Hct (37 - 47 %) 28.8 L MCV (81.0 - 99.0 FL) 79.9 L MCH (27.0 - 31.0 PG) 26.3 L MCHC (33.0 - 37.0 G/DL) 32.9 L RDW (11.5 - 14.5 %) 16.4 H Plt Count (130 - 400 /CUMM) 187 MPV (7.4 - 10.4 FL) 10.2 Gran % (42.2 - 75.2 %) 75.1 Lymphocytes % (20.5 - 51.1 %) 13.6 L Monocytes % (1.7 - 9.3 %) 6.9 Eosinophils % (0 - 5 %) 4.0 Basophils % (0.0 - 2.0 %) 0.4 Absolute Granulocytes (1.4 - 6.5 /CUMM) 6.0 Absolute Lymphocytes (1.2 - 3.4 /CUMM) 1.1 L Absolute Monocytes (0.10 - 0.60 /CUMM) 0.6 Absolute Eosinophils (0.0 - 0.7 /CUMM) 0.3 Absolute Basophils (0.0 - 0.2 /CUMM) 0 Exam General Appearance: alert, awake, comfortable Respiratory: normal breath sounds Cardiovascular: bradycardia Gastrointestinal: soft Extremities: no edema Current Medications: Current Medications Sig/Antionette Start time Last Medication Dose Route Stop Time Status Admin Amlodipine Besylate 10 MG DAILY 08/03 1000 AC 08/07 PO 0909 Apixaban 2.5 MG BID 08/03 1000 AC 08/07 PO 1021 Aspirin Buffered 81 MG DAILY 08/06 1000 AC 08/07 PO 1021 Atorvastatin Calcium 80 MG 1700 08/02 1700 AC 08/06 PO 1720 Benzocaine/Menthol 1 ANDREA Q2P PRN 08/03 2014 AC PO Carvedilol 3.125 MG BID 08/02 2199 AC 08/05 PO 2246 Clonidine 0.6 MG BID 08/03 2200 AC 08/07 PO 0908 Doxazosin Mesylate 4 MG BID 08/03 2199 AC 08/07 PO 1020 Furosemide 40 MG QAM 08/07 1000 AC 08/07 PO 1022 Furosemide 20 MG QPM 08/06 2200 AC 08/06 PO 2133 Glycerin 2 SPRAY Q2P PRN 08/03 2130 AC 08/03 PO 2310 Hydroxychloroquine 200 MG DAILY 08/02 1515 AC 08/07 Sulfate PO 1023 Isosorbide 120 MG DAILY 08/03 1000 AC 08/07 Mononitrate PO 1020 Magnesium Oxide 400 MG DAILY 08/03 1643 AC 08/07 PO 1023 Morphine Sulfate 2 MG Q2P PRN 08/03 0345 AC 08/03 IV 0334 Nitroglycerin 25 MG Q9H 08/07 0330 AC 08/07 Dextrose/Water 250 ML IV 1217 Nitroglycerin 25 MG Q3H 08/03 1400 DC 08/06 Dextrose/Water 250 ML IV 1827 Omeprazole 40 MG DAILY AC 08/02 1507 AC 08/07 PO 0635 Ondansetron HCl 4 MG Q6P PRN 08/02 1215 AC IV Phenol 2 SPRAY Q2P PRN 08/04 1115 AC 08/05 EXT 2251 Senna/Docusate Sodium 2 TAB DAILY NEEDED PRN 08/06 1300 AC PO Sertraline HCl 25 MG DAILY 08/02 1515 AC 08/07 PO 1023 Spironolactone 50 MG DAILY 08/05 1541 AC 08/07 PO 1019 Valsartan 160 MG BID 08/05 2200 AC 08/07 PO 1020 Impression/Plan Impression/Problem List Impression: 77-year-old woman former smoker with past medical history history of an NSTEMI 2015 labile hypertension on multiple medications, paroxysmal atrial fibrillation , HFpEF, PAD, tachybradycardia syndrome, GERD, CKD stage V secondary to hypertensive nephrosclerosis diagnosed in 2008, iron deficiency anemia, history of ulcerative esophagus without bleeding, 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 Problem list: Labile hypertension Tachybradycardia syndrome Paroxysmal Atrial fibrillation Angina CKD stage V Fe deficiency anemia Left CEA Plan: -continue to monitor in ICU -Incentive spirometry, daily weights, strict I's and O's -Continue with her home medications of Cardura, clonidine, Imdur, Diovan, Coreg and Norvasc. Worsening bradycardia, will DC her carvedilol -We will titrate IV nitroglycerin drip today. -Renal artery Doppler done 08/05/17 showed elevated velocity within the proximal right renal artery. Radiology recomending further evaluation with CTA of the abdomen to better assess the renal arteries how given her CKD this might not be the best option. Will have to speak to nephrology -Postop management of left CEA per surgery -Cardiology and neurology on board DVT PPX full code Thank you for your consult, will follow along with you Problem List: 1. Hypertensive urgency Pain Ratin Plan DVT/Prophylaxis: pharmacological Chris Flores MD 08/07/17 0932: Impression/Plan Impression/Problem List Tomorrow's Labs & Rationales: bp elevated Attending MD Review Statement Attending Sign Off Attending Cosign Statement: I have: examined this patient, reviewed avalbl EMR data, personally reviewd images, discussd w/resident/PA/[employer], discussed mgmt plan w/leticia, discussed mgmt plan w/CM, discussed mgmt plan w/pt, agreed w/resident/PA/[employer], amended to note. Other Findings: I, Chris Flores M.D. have examined this patient, reviewed available EMR data, personally reviewed images, discussed with resident/PA/[employer], discussed management plan with housestaff and nursing staff, discussed managment plan all of healthcare providers, discussed management plan with patient and/or family, agreed with resident/PA/[employer]. The past history and parts of the chart have been autopopulated. Impression 77 year old woman * htn urgency now accelerated htn, improving * likely LUCILLE * vascular disease, s/p CEA Plan -cardiology, vascular f/u -bp control -lasix, ins/outs -asa, valsartan, nitro to be be dc -spirinolactone, clonidine, cardura, isosorbide -eliquis bid DVT prophylaxis at all times TTS 35 min
--- NOTE | 2017-08-07 14:40 | PN- Nephrology ---
Assessment/Plan Nephrology Assessment: Stage IV CKD - baseline Cr normally around 3. 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 HTN - Blood pressure slowly coming down. I was going to recommend increasing Valsartan to 320mg daily but it has already been which is good. Lasix has been increased as well. Hypokalemia suggests high dick state and there certainly may be some degree of renal artery stenosis as suggested by the vascular ultrasound, I just don't know if the risks of an angiogram including REBECCA potentially necessitating dialysis are worth it. Suggestion: -Cont current BP regimen -Would be hesitant to pursue renal angiogram - I am hopeful that uptitration of diuretics and ARB will be effective in lowering her blood pressure more Please call [phone] with ?'s Subjective Subjective: SBP 170's-180's SCr stable at 2.3 K 4.3 Objective Vital Signs and I&Os Vital Signs Date Time Temp Pulse Resp B/P B/P Pulse O2 O2 Flow FiO2 Mean Ox Delivery Rate 08/07 1217 38 / 1020 40 182/77 03/03 1020 40 182/77 /03 0909 46 182/81 /03 0908 43 182/81 / 0800 97.8 45 20 170/50 94 Room Air 03/ 0400 93 Room Air 03/03 0000 93 Room Air 03/03 0000 98.2 47 17 172/60 93 Room Air 03/02 2133 48 15 178/68 03/02 2132 47 178/68 03/02 2131 48 15 178/68 03/02 2000 93 Room Air 03/ 1600 98.0 41 18 186/76 93 Room Air 03/02 1600 93 Room Air Intake & Output / 1600 03/03 0400 03/ 1600 03/ 0400 03/ 1600 03/ 0400 Intake Total 330 527.7 8978 121 9593 616 Output Total 600 850 400 150 Balance -270 -322.3 540 053 7874 616 Intake, IV 210 187.7 166 408 4548 516 Intake, Oral 120 340 420 240 60 100 Number 0 2 0 0 Bowel Movements Output, Urine 600 850 400 150 Patient 130 lb Weight Physical Exam: Gen - OK appearing HEENT - mild L facial droop CV - RRR, no m/r/g Chest - clear anteriorly, no w/r/r Abd - soft, NTND Ext - no edema Neuro - AOX3, grossly nonfocal Current Medications: Current Medications Sig/Antoinette Start time Last Medication Dose Route Stop Time Status Admin Amlodipine Besylate 10 MG DAILY 08/03 1000 AC 08/07 PO 0909 Apixaban 2.5 MG BID 08/03 1000 AC 08/07 PO 1021 Aspirin Buffered 81 MG DAILY 08/06 1000 AC 08/07 PO 1021 Atorvastatin Calcium 80 MG 1700 08/02 1700 AC 08/06 PO 1720 Benzocaine/Menthol 1 ANDREA Q2P PRN 08/03 2014 AC PO Carvedilol 3.125 MG BID 08/02 2200 AC 08/05 PO 2246 Clonidine 0.6 MG BID 08/03 220 AC 08/07 PO 0908 Doxazosin Mesylate 4 MG BID 08/03 2200 AC 08/07 PO 1020 Furosemide 40 MG QAM 08/07 1000 AC 08/07 PO 1022 Furosemide 20 MG QPM 08/06 2200 AC 08/06 PO 2133 Glycerin 2 SPRAY Q2P PRN 08/03 2130 AC 08/03 PO 2310 Hydroxychloroquine 200 MG DAILY 08/02 1515 AC 08/07 Sulfate PO 1023 Isosorbide 120 MG DAILY 08/03 1000 AC 08/07 Mononitrate PO 1020 Magnesium Oxide 400 MG DAILY 08/03 1643 AC 08/07 PO 1023 Morphine Sulfate 2 MG Q2P PRN 08/03 0345 AC 08/03 IV 0334 Nitroglycerin 25 MG Q9H 08/07 0330 AC 08/07 Dextrose/Water 250 ML IV 1217 Nitroglycerin 25 MG Q3H 08/03 1400 DC 08/06 Dextrose/Water 250 ML IV 1827 Omeprazole 40 MG DAILY AC 08/02 1507 AC 08/07 PO 0635 Ondansetron HCl 4 MG Q6P PRN 08/02 1215 AC IV Phenol 2 SPRAY Q2P PRN 08/04 1115 AC 08/05 EXT 2251 Senna/Docusate Sodium 2 TAB DAILY NEEDED PRN 08/06 1300 AC PO Sertraline HCl 25 MG DAILY 08/02 1515 AC 08/07 PO 1023 Spironolactone 50 MG DAILY 08/05 1541 AC 08/07 PO 1019 Valsartan 160 MG BID 08/05 2200 AC 08/07 PO 1020 Results Pertinent Lab Results: Laboratory Tests 08/07 08/06 0425 0500 Chemistry Sodium (137 - 145 mmol/L) 134 L Potassium (3.5 - 5.1 mmol/L) 4.3 Chloride (98 - 107 mmol/L) 101 Carbon Dioxide (22 - 30 mmol/L) 24 Anion Gap (5 - 16) 8 BUN (7 - 17 mg/dL) 32 H Creatinine (0.5 - 1.0 mg/dL) 2.3 H Estimated GFR (>60 ml/min) 20 L Glucose (65 - 99 mg/dL) 105 H Calcium (8.4 - 10.2 mg/dL) 8.5 Phosphorus (2.5 - 4.5 mg/dL) 4.7 H Magnesium (1.6 - 2.3 mg/dL) 2.2 Cancelled Total Bilirubin (0.2 - 1.3 mg/dL) 0.4 AST (14 - 36 U/L) 16 ALT (9 - 52 U/L) 21 Albumin (3.5 - 5.0 g/dL) 2.8 L Hematology CBC w Diff NO MAN DIFF REQ WBC (4.8 - 10.8 /CUMM) 8.0 RBC (4.20 - 5.40 /CUMM) 3.61 L Hgb (12.0 - 16.0 G/DL) 9.5 L Hct (37 - 47 %) 28.8 L MCV (81.0 - 99.0 FL) 79.9 L MCH (27.0 - 31.0 PG) 26.3 L MCHC (33.0 - 37.0 G/DL) 32.9 L RDW (11.5 - 14.5 %) 16.4 H Plt Count (130 - 400 /CUMM) 187 MPV (7.4 - 10.4 FL) 10.2 Gran % (42.2 - 75.2 %) 75.1 Lymphocytes % (20.5 - 51.1 %) 13.6 L Monocytes % (1.7 - 9.3 %) 6.9 Eosinophils % (0 - 5 %) 4.0 Basophils % (0.0 - 2.0 %) 0.4 Absolute Granulocytes (1.4 - 6.5 /CUMM) 6.0 Absolute Lymphocytes (1.2 - 3.4 /CUMM) 1.1 L Absolute Monocytes (0.10 - 0.60 /CUMM) 0.6 Absolute Eosinophils (0.0 - 0.7 /CUMM) 0.3 Absolute Basophils (0.0 - 0.2 /CUMM) 0 08/06 08/05 0500 0415 Chemistry Sodium (137 - 145 mmol/L) 132 L 132 L Potassium (3.5 - 5.1 mmol/L) 4.3 3.7 Chloride (98 - 107 mmol/L) 101 101 Carbon Dioxide (22 - 30 mmol/L) 23 22 Anion Gap (5 - 16) 8 9 BUN (7 - 17 mg/dL) 27 H 26 H Creatinine (0.5 - 1.0 mg/dL) 2.1 H 2.3 H Estimated GFR (>60 ml/min) 23 L 20 L BUN/Creatinine Ratio (7 - 25 %) 12.9 Glucose (65 - 99 mg/dL) 109 H Calcium (8.4 - 10.2 mg/dL) 8.0 L Phosphorus (2.5 - 4.5 mg/dL) 4.9 H Magnesium (1.6 - 2.3 mg/dL) 2.2 1.7 Total Bilirubin (0.2 - 1.3 mg/dL) 0.3 AST (14 - 36 U/L) 12 L ALT (9 - 52 U/L) 20 Albumin (3.5 - 5.0 g/dL) 2.4 L Hematology CBC w Diff NO MAN DIFF REQ NO MAN DIFF REQ WBC (4.8 - 10.8 /CUMM) 7.9 7.5 RBC (4.20 - 5.40 /CUMM) 3.59 L 3.30 L Hgb (12.0 - 16.0 G/DL) 9.4 L 8.8 L Hct (37 - 47 %) 28.7 L 26.2 L MCV (81.0 - 99.0 FL) 79.8 L 79.5 L MCH (27.0 - 31.0 PG) 26.2 L 26.6 L MCHC (33.0 - 37.0 G/DL) 32.8 L 33.5 RDW (11.5 - 14.5 %) 16.9 H 16.6 H Plt Count (130 - 400 /CUMM) 189 160 MPV (7.4 - 10.4 FL) 9.9 9.6 Gran % (42.2 - 75.2 %) 78.6 H 77.1 H Lymphocytes % (20.5 - 51.1 %) 10.6 L 10.9 L Monocytes % (1.7 - 9.3 %) 7.3 8.1 Eosinophils % (0 - 5 %) 3.4 3.5 Basophils % (0.0 - 2.0 %) 0.1 0.4 Absolute Granulocytes (1.4 - 6.5 /CUMM) 6.2 5.8 Absolute Lymphocytes (1.2 - 3.4 /CUMM) 0.8 L 0.8 L Absolute Monocytes (0.10 - 0.60 /CUMM) 0.6 0.6 Absolute Eosinophils (0.0 - 0.7 /CUMM) 0.3 0.3 Absolute Basophils (0.0 - 0.2 /CUMM) 0 0 08/04 1736 Chemistry Troponin I (< 0.11 ng/ml) < 0.01 Imaging/Other Studies: EXAM TYPE: US - US-ABD/PELV ORGAN DOPPLER EXAMINATION: RENAL ARTERY DOPPLER ULTRASOUND CLINICAL INFORMATION: Labile hypertension. Rule out renal artery stenosis. COMPARISON: None. TECHNIQUE: Renal ultrasound. Doppler ultrasound (spectral analysis and color Doppler) of the renal arteries and aorta were performed. The exam was done portably. Technically challenging exam due to the patient's inability to follow instructions. FINDINGS: The right kidney measures 9.2 cm x 4.3 cm x 4.5 cm in sagittal, AP and transverse dimensions. The left kidney measures 8.8 cm x 4.7 cm x 3.9 cm in sagittal, AP and transverse dimensions. The kidneys show no masses, calculi or hydronephrosis. The corticomedullary differentiation is normal. RENAL ARTERY VELOCITIES: RIGHT: Proximally: 260 cm/s. Mid: 123 cm/s. Distal: 46 cm/s. LEFT: Proximally: 108 cm/s. Mid: 41 cm/s. Distally: 77 cm/s. The aortic velocity is 190 cm/s. IMPRESSION: There is elevated velocity within the proximal right renal artery. Note, this was a technically challenging exam which limits sensitivity. Consider further evaluation with CTA of the abdomen to better assess the renal arteries.
[2017-08-07 16:00] VITALS: BP 138/70
--- NOTE | 2017-08-07 19:26 | Event Note ---
Event Note Event Note: talked with Dr. frias suggested to increase the dose of clonidine to 0.6 TID
--- NOTE | 2017-08-07 19:33 | PN- Cardiology ---
Subjective Subjective: Feeling well. No chest pain. No palpitations. No diaphoresis. No nausea or vomiting. Blood pressure remains mildly elevated. Objective Vital Signs and I&Os Vital Signs Date Time Temp Pulse Resp B/P B/P Pulse O2 O2 Flow FiO2 Mean Ox Delivery Rate 08/07 1739 45 172/70 08/07 1600 97.4 40 24 138/70 96 Room Air 08/07 1217 38 08/07 1020 40 182/77 08/07 1020 40 182/77 08/07 0909 46 182/81 08/07 0908 43 182/81 08/07 0800 97.8 45 20 170/50 94 Room Air 08/07 0400 93 Room Air 08/07 0000 93 Room Air 08/07 0000 98.2 47 17 172/60 93 Room Air 08/06 2133 48 15 178/68 08/06 2132 47 178/68 08/06 213 48 15 178/68 08/06 2000 93 Room Air Intake & Output 08/07 1600 08/07 0800 08/07 0000 08/06 1600 08/06 0800 08/06 0000 Intake Total 910 330 527.7 700 444 727 Output Total 200 600 850 200 200 Balance 710 -270 -322.3 500 244 727 Intake, IV 110 210 187.7 340 384 487 Intake, Oral 800 120 340 360 60 240 Number 0 0 2 0 0 Bowel Movements Output, Urine 200 600 850 200 200 Patient 130 lb Weight Physical Exam: Gen: The patient is in no acute distress HEENT: Normal nose, ears, and oropharynx. Pupils equal bilaterally. Conjunctiva normal. Neck: Supple with no JVD, no masses, and no thyromegaly Lungs: Clear to auscultation with normal respiratory effort Heart: RRR, S1, S2, 1/6 systolic murmurs. No peripheral edema, 2+ pulses in the lower extremities bilaterally Abdomen: Soft, nontender, no masses. No hepatomegaly. No splenomegaly Extremities: No clubbing or cyanosis. Normal muscle strength in the upper and lower extremities. Skin: Normal skin turgor with no skin ulcers or lesions noted. Neuro: Cranial nerves intact. Sensation intact Current Medications: Current Medications Sig/Antoinette Start time Last Medication Dose Route Stop Time Status Admin Amlodipine Besylate 10 MG DAILY@0600 / 0600 AC PO Amlodipine Besylate 10 MG DAILY 08/03 1000 DC 08/07 PO 0909 Apixaban 2.5 MG BID 08/03 1000 AC 08/07 PO 1021 Aspirin Buffered 81 MG DAILY 08/06 1000 AC 08/07 PO 1021 Atorvastatin Calcium 80 MG 1700 08/02 1700 AC 08/07 PO 1738 Benzocaine/Menthol 1 ANDREA Q2P PRN 08/03 2014 AC PO Carvedilol 3.125 MG BID 08/02 2200 DC 08/05 PO 2246 Clonidine 0.6 MG TIDAC 08/08 0800 UNVr PO Clonidine 0.6 MG 0600,1800 08/08 0600 DC PO Clonidine 0.6 MG ONE TIME ONE 08/08 0000 UNVr PO 08/08 0001 Clonidine 0.6 MG ONE ONE 08/07 1800 DC 08/07 PO 08/07 1801 1739 Clonidine 0.6 MG BID 08/03 2200 DC 08/07 PO 0908 Doxazosin Mesylate 4 MG BID 08/03 2200 AC 08/07 PO 1020 Furosemide 40 MG QAM 08/07 1000 AC 08/07 PO 1022 Furosemide 20 MG QPM 08/06 2200 AC 08/06 PO 2133 Glycerin 2 SPRAY Q2P PRN 08/03 2130 AC 08/03 PO 2310 Hydroxychloroquine 200 MG DAILY 08/02 1515 AC 08/07 Sulfate PO 1023 Isosorbide 120 MG DAILY 08/03 1000 AC 08/07 Mononitrate PO 1020 Magnesium Oxide 400 MG DAILY 08/03 1643 AC 08/07 PO 1023 Morphine Sulfate 2 MG Q2P PRN 08/03 0345 AC 08/03 IV 0334 Nitroglycerin 25 MG Q9H 08/07 0330 AC 08/07 Dextrose/Water 250 ML IV 1217 Nitroglycerin 25 MG Q3H 08/03 1400 DC 08/06 Dextrose/Water 250 ML IV 1827 Omeprazole 40 MG DAILY AC 08/02 1507 AC 08/07 PO 0635 Ondansetron HCl 4 MG Q6P PRN 08/02 1215 AC IV Phenol 2 SPRAY Q2P PRN 08/04 1115 AC 08/05 EXT 2251 Senna/Docusate Sodium 2 TAB DAILY NEEDED PRN 08/06 1300 AC PO Sertraline HCl 25 MG DAILY 08/02 1515 AC 08/07 PO 1023 Spironolactone 50 MG DAILY 08/05 1541 AC 08/07 PO 1019 Valsartan 160 MG BID 08/05 2200 AC 08/07 PO 1020 Results Last 48 Hrs of Labs/Mics: Laboratory Tests 08/07/17 0425: Anion Gap 8, Estimated GFR 20 L, Glucose 105 H, Calcium 8.5, Phosphorus 4.7 H , Magnesium 2.2, Total Bilirubin 0.4, AST 16, ALT 21, Albumin 2.8 L, CBC w Diff NO MAN DIFF REQ, RBC 3.61 L, MCV 79.9 L, MCH 26.3 L, MCHC 32.9 L, RDW 16.4 H, MPV 10.2, Gran % 75.1, Lymphocytes % 13.6 L, Monocytes % 6.9, Eosinophils % 4.0, Basophils % 0.4, Absolute Granulocytes 6.0, Absolute Lymphocytes 1.1 L, Absolute Monocytes 0.6, Absolute Eosinophils 0.3, Absolute Basophils 0 08/06/17 0500: Magnesium Cancelled 08/06/17 0500: Anion Gap 8, Estimated GFR 23 L, BUN/Creatinine Ratio 12.9, Magnesium 2.2, CBC w Diff NO MAN DIFF REQ, RBC 3.59 L, MCV 79.8 L, MCH 26.2 L, MCHC 32.8 L, RDW 16.9 H, MPV 9.9, Gran % 78.6 H, Lymphocytes % 10.6 L, Monocytes % 7.3, Eosinophils % 3.4, Basophils % 0.1, Absolute Granulocytes 6.2, Absolute Lymphocytes 0.8 L, Absolute Monocytes 0.6, Absolute Eosinophils 0.3, Absolute Basophils 0 Assessment/Plan Assessment/Plan Assessment/Plan 1. Paroxysmal atrial fibrillation 2. Chronic HFpEF 3. Status post carotid endarterectomy 4. Uncontrolled hypertension Plan: * Discontinue carvedilol given sinus bradycardia * Increase clonidine to 0.6 mg p.o. 3 times daily * Continue amlodipine, Imdur. Continue telemetry? Yes
[2017-08-07 23:48] VITALS: BP 180/58
[2017-08-08 05:53] LABS: ABSOLUTE BASOPHIL COUNT 0 /CUMM (0.0-0.2); ABSOLUTE EOSINOPHIL COUNT 0.3 /CUMM (0.0-0.7); ABSOLUTE GRANULOCYTE CT 5.7 /CUMM (1.4-6.5); ABSOLUTE LYMPH COUNT 1.2 /CUMM (1.2-3.4); ABSOLUTE MONOCYTE COUNT 0.5 /CUMM (0.10-0.60); BASOPHIL % 0.6 % (0.0-2.0); EOSINOPHIL % 3.8 % (0-5); GRANULOCYTE % 73.6 % (42.2-75.2); HEMATOCRIT 30.4 % (37-47); MEAN CORPUSCULAR HGB 26.4 PG (27.0-31.0); MEAN CORPUSCULAR VOLUME 80.1 FL (81.0-99.0); MEAN PLATELET VOLUME 9.7 FL (7.4-10.4); PLATELET COUNT 200 /CUMM (130-400); RBC DISTRIBUTION WIDTH 16.6 % (11.5-14.5); RED BLOOD CELL CT 3.79 /CUMM (4.20-5.40); WHITE BLOOD CELL COUNT 7.8 /CUMM (4.8-10.8)
--- NOTE | 2017-08-08 05:55 | PN- Vascular Surgery ---
Subjective Subjective: Awake, alert No complaints overnight bp continues to be elevated - 192/52 this morning Pt is frustrated and wants to go home Objective Vital Signs and I&Os Vital Signs Date Time Temp Pulse Resp B/P B/P Pulse O2 O2 Flow FiO2 Mean Ox Delivery Rate 08/08 0509 46 192/52 / 0000 92 Room Air 08/07 2348 98.4 56 14 180/58 94 Room Air 08/07 2331 56 181/90 08/07 2139 51 176/85 08/07 2000 94 Room Air 08/07 1739 45 172/70 08/07 1600 97.4 40 24 138/70 96 Room Air 08/07 1217 38 08/07 1020 40 182/77 08/07 1020 40 182/77 08/07 0909 46 182/81 08/07 0908 43 182/81 08/07 0800 97.8 45 20 170/50 94 Room Air Intake & Output 08/08 0800 / 0000 08/07 1600 08/07 0800 08/07 0000 08/06 1600 Intake Total 380 910 330 527.7 700 Output Total 350 200 600 850 200 Balance 30 710 -270 -322.3 500 Intake, IV 110 210 187.7 340 Intake, Oral 380 800 120 340 360 Number 0 0 2 Bowel Movements Output, Urine 350 200 600 850 200 Patient 130 lb Weight Physical Exam: bp readings as above systolic 138-192 General: alert and oriented times three Chest: clear anteriorly bilaterally Abd: soft, good bs Ext: warm, no edema Neuro: left sided mandibular palsy unchanged, no slurring Current Medications: Current Medications Sig/Antoinette Start time Last Medication Dose Route Stop Time Status Admin Amlodipine Besylate 10 MG DAILY@0600 08/08 0600 AC 08/08 PO 0509 Amlodipine Besylate 10 MG DAILY 08/03 1000 DC 08/07 PO 0909 Apixaban 2.5 MG BID 08/03 1000 AC 08/07 PO 2133 Aspirin Buffered 81 MG DAILY 08/06 1000 AC 08/07 PO 1021 Atorvastatin Calcium 80 MG 1700 08/02 1700 AC 08/07 PO 1738 Benzocaine/Menthol 1 ANDREA Q2P PRN 08/03 2014 AC PO Carvedilol 3.125 MG BID 08/020 DC 08/05 PO 2246 Clonidine 0.6 MG TIDAC 08/08 08 AC PO Clonidine 0.6 MG 0600,1800 08/08 0600 DC PO Clonidine 0.6 MG ONE TIME ONE 08/08 0000 DC 08/07 PO 08/08 0001 2331 Clonidine 0.6 MG ONE ONE 08/07 1800 DC 08/07 PO 08/07 1801 1739 Clonidine 0.6 MG BID 08/03 2200 DC 08/07 PO 0908 Doxazosin Mesylate 4 MG BID 08/03 2200 AC 08/07 PO 2134 Furosemide 40 MG QAM 08/07 1000 AC 08/07 PO 1022 Furosemide 20 MG QPM 08/06 2200 AC 08/07 PO 2133 Glycerin 2 SPRAY Q2P PRN 08/03 2130 AC 08/03 PO 2310 Hydroxychloroquine 200 MG DAILY 08/02 1515 AC 08/07 Sulfate PO 1023 Isosorbide 120 MG DAILY 08/03 1000 AC 08/07 Mononitrate PO 1020 Magnesium Oxide 400 MG DAILY 08/03 1643 AC 08/07 PO 1023 Morphine Sulfate 2 MG Q2P PRN 08/03 0345 DC 08/03 IV 0334 Nitroglycerin 25 MG Q9H 08/07 0330 DC 08/07 Dextrose/Water 250 ML IV 1217 Omeprazole 40 MG DAILY AC 08/02 1507 AC 08/08 PO 0510 Ondansetron HCl 4 MG Q6P PRN 08/02 1215 AC IV Phenol 2 SPRAY Q2P PRN 08/04 1115 AC 08/05 EXT 2251 Senna/Docusate Sodium 2 TAB DAILY NEEDED PRN 08/06 1300 AC PO Sertraline HCl 25 MG DAILY 08/02 1515 AC 08/07 PO 1023 Spironolactone 50 MG DAILY 08/05 1541 AC 08/07 PO 1019 Valsartan 160 MG BID 08/07 2200 AC 08/07 PO 2139 Valsartan 160 MG BID 08/05 2200 DC 08/07 PO 1020 Assessment/Plan Assessment/Plan 77yo female s/p L CEA with intractable htn cardiology/nephrology following Recommendations per Cardiology include: Plan: * Discontinue carvedilol given sinus bradycardia * Increase clonidine to 0.6 mg p.o. 3 times daily * Continue amlodipine, Imdur. Pt is also taking valsartan and cardura, lasix and spironolactone Recommendations from Renal: -Would be hesitant to pursue renal angiogram - I am hopeful that uptitration of diuretics and ARB will be effective in lowering her blood pressure more Pts bp has not lowered. Per renal, angio of renal arteries is risky. Will discuss with vascular surgery attending - +/- renal arteriogram Medications per cardiology/renal Hopefully discharge soon Core Measures Venous Thromboembolism VTE Risk Factors Surgery No Mechanical VTE Prophylaxis d/t N/A MechProphylax Ordered No VTE Pharm Prophylaxis d/t NA PharmProphylax ordered
[2017-08-08 08:00] VITALS: BP 176/50
--- NOTE | 2017-08-08 09:35 | PN- Resident CRCU ---
Colten WELLS,Venkata 08/08/17 0935: Subjective HPI/CRCU Issues: Hypertension Carotic artery stenosis S/P L CEA 97.4-97.8/38-48/12-27/(144/78)-(192/52)/ 92 [place] [address] Total Out 3000 24 Hour Events: Pt's BP remains up to 200 systolic. She was bradycardic down to 32 but asymptomatic. Pt wanted to leave today but we discussed that HR in low 30s while awake might not be a safe discharge home as she would likely ariel down further into the 20s while asleep. We discussed possibility of needing a pacemaker. Family was in room for entire discussion. Objective Vital Signs & I&O Last 8 Hrs of Vitals and I&O: Intake & Output 08/08 1600 Intake Total 380 Output Total 250 Balance 130 Intake, IV 20 Intake, Oral 360 Output, Urine 250 Exam General Appearance: well developed/nourished, no apparent distress, alert, awake , comfortable Head: atraumatic, asymmetry at baseline in lower face, bandage under l. jaw on neck Neck: bandage on l. neck. fading ecchymosis under bandage Respiratory: crackles Cardiovascular: regular rate/rhythm, bradycardia Gastrointestinal: soft, non-tender Extremities: no edema Current Medications: Current Medications Sig/Antoinette Start time Last Medication Dose Route Stop Time Status Admin Amlodipine Besylate 10 MG DAILY@0600 / 0600 AC 08/08 PO 0509 Apixaban 2.5 MG BID 08/03 1000 AC 08/08 PO 1029 Aspirin Buffered 81 MG DAILY 08/06 1000 AC 08/08 PO 1029 Atorvastatin Calcium 80 MG 1700 08/02 1700 AC 08/07 PO 1738 Benzocaine/Menthol 1 ANDREA Q2P PRN 08/03 2014 AC PO Carvedilol 3.125 MG BID 08/02 2200 DC 08/05 PO 2246 Clonidine 0.6 MG TID 08/08 1600 AC PO Clonidine 0.6 MG TIDAC 08/08 0800 DC 08/08 PO 0815 Clonidine 0.6 MG 0600,1800 08/08 0600 DC PO Clonidine 0.6 MG ONE TIME ONE 08/08 0000 DC 08/07 PO 08/08 0001 2331 Clonidine 0.6 MG ONE ONE 08/07 1800 DC 08/07 PO 08/07 1801 1739 Doxazosin Mesylate 4 MG BID 08/03 2200 AC 08/08 PO 1029 Furosemide 40 MG QAM 08/07 1000 AC 08/08 PO 1029 Furosemide 20 MG QPM 08/06 2200 AC 08/07 PO 2133 Glycerin 2 SPRAY Q2P PRN 08/03 2130 AC 08/03 PO 2310 Hydroxychloroquine 200 MG DAILY 08/02 1515 AC 08/08 Sulfate PO 1029 Isosorbide 120 MG DAILY 08/03 1000 AC 08/08 Mononitrate PO 1028 Magnesium Oxide 400 MG DAILY 08/03 1643 AC 08/08 PO 1027 Morphine Sulfate 2 MG Q2P PRN 08/03 0345 DC 08/03 IV 0334 Nitroglycerin 25 MG Q9H 08/07 0330 DC 08/07 Dextrose/Water 250 ML IV 1217 Omeprazole 40 MG DAILY AC 08/02 1507 AC 08/08 PO 0510 Ondansetron HCl 4 MG Q6P PRN 08/02 1215 AC IV Phenol 2 SPRAY Q2P PRN 08/04 1115 AC 08/05 EXT 2251 Senna/Docusate Sodium 2 TAB DAILY NEEDED PRN 08/06 1300 AC PO Sertraline HCl 25 MG DAILY 08/02 1515 AC 08/08 PO 1029 Spironolactone 50 MG DAILY 08/05 1541 AC 08/08 PO 1028 Valsartan 160 MG BID 08/07 2200 AC 08/08 PO 1031 Valsartan 160 MG BID 08/05 2200 DC 08/07 PO 1020 Impression/Plan Impression/Problem List Impression: This is a 77-year-old woman with past medical history history of an NSTEMI in 2016 labile hypertension on multiple medications, paroxysmal atrial fibrillation , HFpEF, PAD, tachybradycardia syndrome, GERD, CKD stage V secondary to hypertensive nephrosclerosis diagnosed in 2008, iron deficiency anemia, history of ulcerative esophagus without bleeding, 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 CEA. Post surgically her hospital course has been complicated by refractory hypertension and now bradycardia. PLAN Labile hypertension: Pt was initially on a nitroglycerin drip and has been weaned off. Today her BP is better under control as it came down to 150s systolic on current regimen. However, today was the first time she has had significant bradycardia down to 32 while awake and conversant. THere is concern that this is sfx of the increased dose of Clonidine. Will half the dose to .3mg TID and add Minoxidil. Pt was initially resistant to Minoxidil due to mild hirsuitism but has agreed to try a low dose. Renal artery Doppler done 08/05/17 showed elevated velocity within the proximal right renal artery. Per nephro, no need for CTA or renal artery stenting at this time. * Will down grade to telemetry floor as her hypertension seems better under control. * Con't Cardura 4mg BID * Con't Imdur 120 BID * Con't Valsartan 160 TID * Con't Norvasc 10 MG Daily * Con't Aldactone 50mg * Con't Lasix 40 AM and 20 PM * START Minoxidil * DECREASE Clonidine to .3 TID Paroxysmal Atrial fibrillation/Tachybradycardia syndrome: * Con't Eliquis * Monitor on Tele Angina: * Con't Statin * Con't ASA CKD stage V: * Avoid nephrotoxins * Con't ARB Left CEA: Post op management per surgery * Incentive spirometry * Daily weights * strict I's and O's * OOB * Dressing change per surgery * Pain mgmt per surgery Thank you for your consult, will follow along with you Problem List: 1. Hypertensive urgency Pain Ratin Tomorrow's Labs & Rationales: icu cbc Plan DVT/Prophylaxis: pharmacological Chirs Flores MD 08/08/17 1018: Attending MD Review Statement Attending Sign Off Attending Cosign Statement: I have: examined this patient, reviewed avalbl EMR data, personally reviewd images, discussd w/resident/PA/CONTROLS PROJECT ENGINEER, discussed mgmt plan w/leticia, discussed mgmt plan w/CM, discussed mgmt plan w/pt, agreed w/resident/PA/CONTROLS PROJECT ENGINEER, amended to note. Other Findings: IChris M.D. have examined this patient, reviewed available EMR data, personally reviewed images, discussed with resident/PA/CONTROLS PROJECT ENGINEER, discussed management plan with housestaff and nursing staff, discussed managment plan all of healthcare providers, discussed management plan with patient and/or family, agreed with resident/PA/CONTROLS PROJECT ENGINEER. The past history and parts of the chart have been autopopulated. Impression 77 year old woman * htn urgency now accelerated htn, improving * likely LUCILLE * vascular disease, s/p CEA Plan -cardiology, vascular f/u -bp control -lasix, ins/outs -asa, valsartan, off nitro -spirinolactone, clonidine, cardura, isosorbide -eliquis bid DVT prophylaxis at all times TTS 35 min
[2017-08-08 13:30] VITALS: BP 154/56
--- NOTE | 2017-08-08 15:02 | PN- Cardiology ---
Subjective Subjective: The patient is comfortable with no complaints. Blood pressure is significantly improved. She has been significantly bradycardic with heart rate as low as 32 while awake. Objective Vital Signs and I&Os Vital Signs Date Time Temp Pulse Resp B/P B/P Pulse O2 O2 Flow FiO2 Mean Ox Delivery Rate 08/08 1330 32 154/56 / 1200 Room Air 08/08 1028 40 170/50 / 0815 42 176/50 08/08 0800 Room Air 08/08 0800 97.2 42 20 176/50 96 Room Air / 0600 94 Room Air 08/08 0509 46 192/52 / 0000 92 Room Air 08/07 2348 98.4 56 14 180/58 94 Room Air 08/07 2331 56 181/90 08/07 2139 51 176/85 08/07 2000 94 Room Air 08/07 1739 45 172/70 08/07 1600 97.4 40 24 138/70 96 Room Air Intake & Output 08/08 1600 08/08 0800 / 0000 08/07 1600 08/07 0800 08/07 0000 Intake Total 380 120 380 910 330 527.7 Output Total 250 150 350 200 600 850 Balance 130 -30 30 710 -270 -322.3 Intake, IV 20 110 210 187.7 Intake, Oral 360 120 380 800 120 340 Number 0 0 2 Bowel Movements Output, Urine 250 150 350 200 600 850 Physical Exam: Gen: The patient is in no acute distress HEENT: Normal nose, ears, and oropharynx. Pupils equal bilaterally. Conjunctiva normal. Neck: Supple with no JVD, no masses, and no thyromegaly Lungs: Clear to auscultation with normal respiratory effort Heart: RRR, S1, S2, 1/6 systolic murmurs. No peripheral edema, 2+ pulses in the lower extremities bilaterally Abdomen: Soft, nontender, no masses. No hepatomegaly. No splenomegaly Extremities: No clubbing or cyanosis. Normal muscle strength in the upper and lower extremities. Skin: Normal skin turgor with no skin ulcers or lesions noted. Neuro: Cranial nerves intact. Sensation intact Current Medications: Current Medications Sig/Antoinette Start time Last Medication Dose Route Stop Time Status Admin Amlodipine Besylate 10 MG DAILY@0600 / 0600 AC 08/08 PO 0509 Amlodipine Besylate 10 MG DAILY 08/03 1000 DC 08/07 PO 0909 Apixaban 2.5 MG BID 08/03 1000 AC 08/08 PO 1029 Aspirin Buffered 81 MG DAILY 08/06 1000 AC 08/08 PO 1029 Atorvastatin Calcium 80 MG 1700 08/02 1700 AC 08/07 PO 1738 Benzocaine/Menthol 1 ANDREA Q2P PRN 08/03 2014 AC PO Carvedilol 3.125 MG BID 08/02 2200 DC 08/05 PO 2246 Clonidine 0.6 MG TID 08/08 1600 AC PO Clonidine 0.6 MG TIDAC 08/08 0800 DC 08/08 PO 0815 Clonidine 0.6 MG 0600,1800 08/08 0600 DC PO Clonidine 0.6 MG ONE TIME ONE 08/08 0000 DC 08/07 PO 08/08 0001 2331 Clonidine 0.6 MG ONE ONE 08/07 1800 DC 08/07 PO 08/07 1801 1739 Clonidine 0.6 MG BID 08/03 2200 DC 08/07 PO 0908 Doxazosin Mesylate 4 MG BID 08/03 2200 AC 08/08 PO 1029 Furosemide 40 MG QAM 08/07 1000 AC 08/08 PO 1029 Furosemide 20 MG QPM 08/06 2200 AC 08/07 PO 2133 Glycerin 2 SPRAY Q2P PRN 08/03 2130 AC 08/03 PO 2310 Hydroxychloroquine 200 MG DAILY 08/02 1515 AC 08/08 Sulfate PO 1029 Isosorbide 120 MG DAILY 08/03 1000 AC 08/08 Mononitrate PO 1028 Magnesium Oxide 400 MG DAILY 08/03 1643 AC 08/08 PO 1027 Morphine Sulfate 2 MG Q2P PRN 08/03 0345 DC 08/03 IV 0334 Nitroglycerin 25 MG Q9H 08/07 0330 DC 08/07 Dextrose/Water 250 ML IV 1217 Omeprazole 40 MG DAILY AC 08/02 1507 AC 08/08 PO 0510 Ondansetron HCl 4 MG Q6P PRN 08/02 1215 AC IV Phenol 2 SPRAY Q2P PRN 08/04 1115 AC 08/05 EXT 2251 Senna/Docusate Sodium 2 TAB DAILY NEEDED PRN 08/06 1300 AC PO Sertraline HCl 25 MG DAILY 08/02 1515 AC 08/08 PO 1029 Spironolactone 50 MG DAILY 08/05 1541 AC 08/08 PO 1028 Valsartan 160 MG BID 08/07 2199 AC 08/08 PO 1031 Valsartan 160 MG BID 08/05 220 DC 08/07 PO 1020 Results Last 48 Hrs of Labs/Mics: Laboratory Tests 08/08/17 0504: Anion Gap 9, Estimated GFR 18 L, Glucose 114 H, Calcium 8.7, Phosphorus 5.1 H , Magnesium 2.2, Total Bilirubin 0.4, AST 14, ALT 23, Albumin 2.9 L, CBC w Diff NO MAN DIFF REQ, RBC 3.79 L, MCV 80.1 L, MCH 26.4 L, MCHC 33.0, RDW 16.6 H, MPV 9.7, Gran % 73.6, Lymphocytes % 15.1 L, Monocytes % 6.9, Eosinophils % 3.8, Basophils % 0.6, Absolute Granulocytes 5.7, Absolute Lymphocytes 1.2, Absolute Monocytes 0.5, Absolute Eosinophils 0.3, Absolute Basophils 0 08/07/17 0425: Anion Gap 8, Estimated GFR 20 L, Glucose 105 H, Calcium 8.5, Phosphorus 4.7 H , Magnesium 2.2, Total Bilirubin 0.4, AST 16, ALT 21, Albumin 2.8 L, CBC w Diff NO MAN DIFF REQ, RBC 3.61 L, MCV 79.9 L, MCH 26.3 L, MCHC 32.9 L, RDW 16.4 H, MPV 10.2, Gran % 75.1, Lymphocytes % 13.6 L, Monocytes % 6.9, Eosinophils % 4.0, Basophils % 0.4, Absolute Granulocytes 6.0, Absolute Lymphocytes 1.1 L, Absolute Monocytes 0.6, Absolute Eosinophils 0.3, Absolute Basophils 0 Assessment/Plan Assessment/Plan 1. Paroxysmal atrial fibrillation 2. Chronic HFpEF 3. Status post carotid endarterectomy 4. Uncontrolled hypertension 5. Sinus bradycardia Plan: * I am concerned that the high dose of clonidine may be contributing to the bradycardia. I recommend decreasing clonidine to 0.3 mg p.o. 3 times daily * Start minoxidil 5 mg p.o. daily for blood pressure control with the decrease in clonidine dose. The patient had been on minoxidil in the past but had problems with mild hirsutism. She is willing to try a low dose of minoxidil again. * Continue to monitor. The patient can be transferred from the ICU to the telemetry floor p Continue telemetry? Yes
[2017-08-08 20:18] VITALS: BP 160/86
[2017-08-08 21:34] VITALS: BP 170/60
[2017-08-08 22:16] VITALS: BP 160/90
[2017-08-09 06:30] VITALS: BP 192/60
--- NOTE | 2017-08-09 09:29 | PN- Vascular Surgery ---
Subjective Subjective: feeling well, wants to leave hospital. denies cp/sob/dizziness. limited oob, feeling unsteady on her feet. will work with pt today for dc recs. BP improved though remains high, 160-170s with few outliers. HR remains ariel, though stable in 40-50s Objective Vital Signs and I&Os Vital Signs Date Time Temp Pulse Resp B/P B/P Pulse O2 O2 Flow FiO2 Mean Ox Delivery Rate 08/09 0843 47 168/64 08/09 0932 47 168/64 08/09 0932 47 168/64 08/09 0931 47 164/68 / 0630 98.3 46 18 192/60 94 08/09 0518 98.3 94 18 192/60 / 2216 97.3 47 16 160/90 96 08/08 213 45 170/60 08/08 213 46 170/60 08/089 46 170/60 08/08 2017 97.8 41 16 160/86 95 / 1702 97.2 38 22 168/63 08/08 1330 32 154/56 08/08 1200 Room Air 08/08 1028 40 170/50 Intake & Output 08/09 1600 08/09 0800 / 0000 / 1600 08/08 0800 08/08 0000 Intake Total 100 30 380 120 380 Output Total 200 400 250 150 350 Balance -100 -370 130 -30 30 Intake, IV 20 Intake, Oral 100 30 360 120 380 Number 1 Bowel Movements Output, Urine 200 400 250 150 350 Patient 116 lb Weight Physical Exam: gen- nad neck- facial palsy left imrpioving, incision w priscila- cdi, ttp at incision, + edema card- s1s2 rrr pulm- ctab abd- soft nt ext- calves soft nt, alps on Current Medications: Current Medications Sig/Antoinette Start time Last Medication Dose Route Stop Time Status Admin Amlodipine Besylate 10 MG DAILY@0600 08/08 0600 AC 08/09 PO 0518 Apixaban 2.5 MG BID 08/03 999 AC 08/09 PO 0933 Aspirin Buffered 81 MG DAILY 08/06 1000 AC 08/09 PO 0933 Atorvastatin Calcium 80 MG 1700 08/02 1700 AC 08/08 PO 1701 Benzocaine/Menthol 1 ANDREA Q2P PRN 08/03 2014 AC PO Clonidine 0.6 MG TID 08/08 1600 DC PO Clonidine 0.3 MG TID 08/08 1600 AC 08/09 PO 0932 Clonidine 0.6 MG TIDAC 08/08 0800 DC 08/08 PO 0815 Doxazosin Mesylate 4 MG BID 08/03 2200 AC 08/09 PO 0932 Furosemide 40 MG QAM 08/07 1000 AC 08/09 PO 0933 Furosemide 20 MG QPM 08/06 2200 AC 08/08 PO 2129 Glycerin 2 SPRAY Q2P PRN 08/03 2130 AC 08/03 PO 2310 Hydroxychloroquine 200 MG DAILY 08/02 1515 AC 08/09 Sulfate PO 0934 Isosorbide 120 MG DAILY 08/03 1000 AC 08/09 Mononitrate PO 0932 Magnesium Oxide 400 MG DAILY 08/03 1643 AC 08/09 PO 0934 Minoxidil 5 MG DAILY 08/09 1000 AC 08/09 PO 0934 Omeprazole 40 MG DAILY AC 08/02 1507 AC 08/09 PO 0717 Ondansetron HCl 4 MG Q6P PRN 08/02 1215 AC IV Phenol 2 SPRAY Q2P PRN 08/04 1115 AC 08/05 EXT 2251 Senna/Docusate Sodium 2 TAB DAILY NEEDED PRN 08/06 1300 AC PO Sertraline HCl 25 MG DAILY 08/02 1515 AC 08/09 PO 0934 Spironolactone 50 MG DAILY 08/05 1541 AC 08/09 PO 0932 Valsartan 160 MG BID 08/07 2200 AC 08/09 PO 0943 Assessment/Plan Assessment/Plan A- POD7 sp L CEA, with complicated postop course due to hypertension and bradycardia, now much improved on PO meds. P- dc planning. fu PT recs. await cardiology input for dc meds. ALIE Mcfarlane. Strongly recommends discharge from hospital today if OK with cardiology Core Measures Venous Thromboembolism VTE Risk Factors Surgery No Mechanical VTE Prophylaxis d/t N/A MechProphylax Ordered No VTE Pharm Prophylaxis d/t NA PharmProphylax ordered
[2017-08-09 09:31] VITALS: BP 164/68
--- NOTE | 2017-08-09 10:19 | PN- Nephrology ---
See Addendum Assessment/Plan Nephrology Assessment: Stage IV CKD - baseline Cr normally around 3. 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 HTN - Blood pressure improved. Pt now agreeable to taking low dose minoxidil but says "you'll be sorry if I grow facial hair." We can send her home on 2.5mg daily. I think it's worth decreasing the lasix to 40mg daily. Other meds seem reasonable. The patient herself is refusing a renal angiogram. Suggestion: -Decrease lasix to 40mg PO daily on discharge -Agree with initiation of minoxidil - will f/u with patient on discharge (will put date of appt as an addendum to this note) -Pt refusing angiogram given risks of contrast induced nephropathy Please call [phone] with ?'s Subjective Subjective: BP 160's/60's on current regimen - given minoxidil this AM (pt agreeable) No additional complaints Objective Vital Signs and I&Os Vital Signs Date Time Temp Pulse Resp B/P B/P Pulse O2 O2 Flow FiO2 Mean Ox Delivery Rate / 0943 47 168/64 03/05 0932 47 168/64 03/05 0932 47 168/64 03/05 0931 47 164/68 03/05 0630 98.3 46 18 192/60 94 03/05 0518 98.3 94 18 192/60 03/04 2216 97.3 47 16 160/90 96 03/04 2134 45 170/60 /04 2131 46 170/60 /04 2129 46 170/60 /2017 97.8 41 16 160/86 95 03/04 1702 97.2 38 22 168/63 03/04 1330 32 154/56 03/04 1200 Room Air 03/04 1028 40 170/50 Intake & Output 03/ 1600 03/05 0400 03/04 1600 03/04 0400 03/ 1600 03/ 0400 Intake Total 100 30 560 285 6139 527.7 Output Total 200 400 400 350 800 850 Balance -100 -370 100 30 440 -322.3 Intake, IV 20 320 187.7 Intake, Oral 100 30 480 380 920 340 Number 1 0 2 Bowel Movements Output, Urine 200 400 400 350 800 850 Patient 116 lb Weight Physical Exam: Gen - OK appearing HEENT - L facial droop CV - RRR, no m/r/g Chest - clear, no w/r/r Abd - soft, NTND Ext - warm, no edema Neuro - AOX3, L facial droop Current Medications: Current Medications Sig/Antoinette Start time Last Medication Dose Route Stop Time Status Admin Amlodipine Besylate 10 MG DAILY@0600 / 0600 AC 08/09 PO 0518 Apixaban 2.5 MG BID 08/03 1000 AC 08/09 PO 0933 Aspirin Buffered 81 MG DAILY 08/06 1000 AC 08/09 PO 0933 Atorvastatin Calcium 80 MG 1700 08/02 1700 AC 08/08 PO 1701 Benzocaine/Menthol 1 ANDREA Q2P PRN 08/03 2015 AC PO Clonidine 0.6 MG TID 08/08 1600 DC PO Clonidine 0.3 MG TID 08/08 1600 AC 08/09 PO 0932 Clonidine 0.6 MG TIDAC 08/08 0800 DC 08/08 PO 0815 Doxazosin Mesylate 4 MG BID 08/03 2200 AC 08/09 PO 0932 Furosemide 40 MG QAM 08/07 1000 AC 08/09 PO 0933 Furosemide 20 MG QPM 08/06 2200 AC 08/08 PO 2129 Glycerin 2 SPRAY Q2P PRN 08/03 2130 AC 08/03 PO 2310 Hydroxychloroquine 200 MG DAILY 08/02 1515 AC 08/09 Sulfate PO 0934 Isosorbide 120 MG DAILY 08/03 1000 AC 08/09 Mononitrate PO 0932 Magnesium Oxide 400 MG DAILY 08/03 1643 AC 08/09 PO 0934 Minoxidil 5 MG DAILY 08/09 1000 AC 08/09 PO 0934 Omeprazole 40 MG DAILY AC 08/02 1507 AC 08/09 PO 0717 Ondansetron HCl 4 MG Q6P PRN 08/02 1215 AC IV Phenol 2 SPRAY Q2P PRN 08/04 1115 AC 08/05 EXT 2251 Senna/Docusate Sodium 2 TAB DAILY NEEDED PRN 08/06 1300 AC PO Sertraline HCl 25 MG DAILY 08/02 1515 AC 08/09 PO 0934 Spironolactone 50 MG DAILY 08/05 1541 AC 08/09 PO 0932 Valsartan 160 MG BID 08/07 2200 AC 08/09 PO 0943 Results Pertinent Lab Results: Laboratory Tests 08/08 08/07 9445 [id number] Chemistry Sodium (137 - 145 mmol/L) 136 L 134 L Potassium (3.5 - 5.1 mmol/L) 4.2 4.3 Chloride (98 - 107 mmol/L) 100 101 Carbon Dioxide (22 - 30 mmol/L) 27 24 Anion Gap (5 - 16) 9 8 BUN (7 - 17 mg/dL) 37 H 32 H Creatinine (0.5 - 1.0 mg/dL) 2.6 H 2.3 H Estimated GFR (>60 ml/min) 18 L 20 L Glucose (65 - 99 mg/dL) 114 H 105 H Calcium (8.4 - 10.2 mg/dL) 8.7 8.5 Phosphorus (2.5 - 4.5 mg/dL) 5.1 H 4.7 H Magnesium (1.6 - 2.3 mg/dL) 2.2 2.2 Total Bilirubin (0.2 - 1.3 mg/dL) 0.4 0.4 AST (14 - 36 U/L) 14 16 ALT (9 - 52 U/L) 23 21 Albumin (3.5 - 5.0 g/dL) 2.9 L 2.8 L Hematology CBC w Diff NO MAN DIFF REQ NO MAN DIFF REQ WBC (4.8 - 10.8 /CUMM) 7.8 8.0 RBC (4.20 - 5.40 /CUMM) 3.79 L 3.61 L Hgb (12.0 - 16.0 G/DL) 10.0 L 9.5 L Hct (37 - 47 %) 30.4 L 28.8 L MCV (81.0 - 99.0 FL) 80.1 L 79.9 L MCH (27.0 - 31.0 PG) 26.4 L 26.3 L MCHC (33.0 - 37.0 G/DL) 33.0 32.9 L RDW (11.5 - 14.5 %) 16.6 H 16.4 H Plt Count (130 - 400 /CUMM) 200 187 MPV (7.4 - 10.4 FL) 9.7 10.2 Gran % (42.2 - 75.2 %) 73.6 75.1 Lymphocytes % (20.5 - 51.1 %) 15.1 L 13.6 L Monocytes % (1.7 - 9.3 %) 6.9 6.9 Eosinophils % (0 - 5 %) 3.8 4.0 Basophils % (0.0 - 2.0 %) 0.6 0.4 Absolute Granulocytes (1.4 - 6.5 /CUMM) 5.7 6.0 Absolute Lymphocytes (1.2 - 3.4 /CUMM) 1.2 1.1 L Absolute Monocytes (0.10 - 0.60 /CUMM) 0.5 0.6 Absolute Eosinophils (0.0 - 0.7 /CUMM) 0.3 0.3 Absolute Basophils (0.0 - 0.2 /CUMM) 0 0 Imaging/Other Studies: Renal US with doppler IMPRESSION: There is elevated velocity within the proximal right renal artery. Note, this was a technically challenging exam which limits sensitivity. Consider further evaluation with CTA of the abdomen to better assess the renal arteries. Barium swallow IMPRESSION: There was post deglutition retention of material within the valleculae. Tracheal penetration with thin and nectar consistency barium without witnessed aspiration. Refer to the speech pathology report for details.
[2017-08-09] MEDS ORDERED: LASIX40 M1 PO (12:06)
[2017-08-09] MEDS ORDERED: MINOXIDIL2.5 M1 PO (12:06)
--- NOTE | 2017-08-09 12:14 | Patient Discharge Instructions ---
Discharge Instructions General Discharge Information You were seen/treated for: Left carotid stenosis You had these procedures: Left carotid endarterectomy Watch for these problems: Worsening pain, drainage from wound, redness at wound, worsening swelling or drooping of face, difficulty moving extremities, slurred speech, other signs of stroke Other wound care: Keep wound clean and dry. Jacek to be removed in DrVinicio surgeon's office at follow-up visit. You may shower. Do not soak wound. Watch for signs of infection Special Instructions: Take medications as prescribed. Follow-up with Dr. Mcfarlane in 1 week for follow up ultrasound of the neck and wound check Follow up with your dog bather, Dr Mathews in 1 week Follow up with Dr. Hillman of nephrology on September 09 with a visit at 1:30, then an Epogen injection at 1:45. Have your blood work drawn on September 07 with results sent to Dr. Hillman. You will need to have a modified barium swallow study test done as outpatient due to problems swallowing. The facility will contact you for an appointment. Diet Recommended Diet: Heart Healthy Activity Activity Self Limited: Yes Additional ACTIVITY Info: Activity as tolerated, No strenuous activity Acute Coronary Syndrome Inclusion Criteria At DC or during hospital stay patient has or had the following: ACS DIAGNOSIS No Discharge Core Measures Meds if any: Prescribed or Continued at Discharge Meds if any: NOT Prescribed or Continued at Discharge Congestive Heart Failure Inclusion Criteria At DC or during hospital stay patient has or had the following: CHF DIAGNOSIS No Discharge Core Measures Meds if any: Prescribed or Continued at Discharge Meds if any: NOT Prescribed or Continued at Discharge Cerebrovascular accident Inclusion Criteria At DC or during hospital stay patient has or had the following: CVA/TIA Diagnosis No Discharge Core Measures Meds if any: Prescribed or Continued at Discharge Meds if any: NOT Prescribed or Continued at Discharge Venous thromboembolism Inclusion Criteria VTE Diagnosis No VTE Type NONE VTE Confirmed by (Test) NONE Discharge Core Measures - Per Current guidelines, there needs to be overlap - treatment for the first 5 days of Warfarin therapy. - If discharged on Warfarin prior to 5 days of - overlap therapy, the patient will need to be - assessed for post discharge needs including - *Post discharge parental anticoagulation - *Warfarin and/or parental anticoagulation education - *Follow up date to check INR post discharge At least 5 days overlap therapy as Inpatient No Meds if any: Prescribed or Continued at Discharge Note: Overlap Therapy is Warfarin and Anticoagulant Meds if any: NOT Prescribed or Continued at Discharge
--- NOTE | 2017-08-09 12:42 | PN- Cardiology ---
Subjective Subjective: The patient is comfortable with no complaints. Heart rate was in the 40s overnight, and decreased into the 30s after administration of clonidine this morning. No chest pain. No palpitations. No diaphoresis. No shortness of breath. Objective Vital Signs and I&Os Vital Signs Date Time Temp Pulse Resp B/P B/P Pulse O2 O2 Flow FiO2 Mean Ox Delivery Rate 08/09 0843 47 168/64 08/09 0932 47 168/64 08/09 0932 47 168/64 08/09 0931 47 164/68 08/09 0630 98.3 46 18 192/60 94 08/09 0518 98.3 94 18 192/60 08/08 2216 97.3 47 16 160/90 96 08/08 2133 45 170/60 08/08 2130 46 170/60 08/08 2128 46 170/60 08/08 2017 97.8 41 16 160/86 95 08/08 1702 97.2 38 22 168/63 08/08 1330 32 154/56 Intake & Output 08/09 0000 08/08 1600 08/08 0808/08 0000 Intake Total 100 30 380 120 380 Output Total 200 400 250 150 350 Balance -100 -370 130 -30 30 Intake, IV 20 Intake, Oral 100 30 360 120 380 Number 1 Bowel Movements Output, Urine 200 400 250 150 350 Patient 116 lb Weight Physical Exam: Gen: The patient is in no acute distress HEENT: Normal nose, ears, and oropharynx. Pupils equal bilaterally. Conjunctiva normal. Neck: Supple with no JVD, no masses, and no thyromegaly Lungs: Clear to auscultation with normal respiratory effort Heart: RRR, S1, S2, 1/6 systolic murmurs. No peripheral edema, 2+ pulses in the lower extremities bilaterally Abdomen: Soft, nontender, no masses. No hepatomegaly. No splenomegaly Extremities: No clubbing or cyanosis. Normal muscle strength in the upper and lower extremities. Skin: Normal skin turgor with no skin ulcers or lesions noted. Neuro: Cranial nerves intact. Sensation intact Current Medications: Current Medications Sig/Antoinette Start time Last Medication Dose Route Stop Time Status Admin Amlodipine Besylate 10 MG DAILY@0600 / 0600 AC 08/09 PO 517 Apixaban 2.5 MG BID 08/03 1000 AC 08/09 PO 0933 Aspirin Buffered 81 MG DAILY 08/06 1000 AC 08/09 PO 0933 Atorvastatin Calcium 80 MG 1700 08/02 1700 AC 08/08 PO 1701 Benzocaine/Menthol 1 ANDREA Q2P PRN 08/03 2015 AC PO Clonidine 0.6 MG TID 08/08 1600 DC PO Clonidine 0.3 MG TID 08/08 1600 AC 08/09 PO 0932 Doxazosin Mesylate 4 MG BID 08/03 2200 AC 08/09 PO 0932 Epoetin Mario 20,000 U ONCE ONE 08/09 1300 AC SC 08/09 1301 Furosemide 40 MG QAM 08/07 1000 AC 08/09 PO 0933 Furosemide 20 MG QPM 08/06 2200 AC 08/08 PO 2129 Glycerin 2 SPRAY Q2P PRN 08/03 2130 AC 08/03 PO 2310 Hydroxychloroquine 200 MG DAILY 08/02 1515 AC 08/09 Sulfate PO 0934 Isosorbide 120 MG DAILY 08/03 1000 AC 08/09 Mononitrate PO 0932 Magnesium Oxide 400 MG DAILY 08/03 1643 AC 08/09 PO 0934 Minoxidil 5 MG DAILY 08/09 1000 AC 08/09 PO 0934 Omeprazole 40 MG DAILY AC 08/02 1507 AC 08/09 PO 0717 Ondansetron HCl 4 MG Q6P PRN 08/02 1215 AC IV Phenol 2 SPRAY Q2P PRN 08/04 1115 AC 08/05 EXT 2251 Senna/Docusate Sodium 2 TAB DAILY NEEDED PRN 08/06 1300 AC PO Sertraline HCl 25 MG DAILY 08/02 1515 AC 08/09 PO 0934 Spironolactone 50 MG DAILY 08/05 1541 AC 08/09 PO 0932 Valsartan 160 MG BID 08/07 2200 AC 08/09 PO 0943 Results Last 48 Hrs of Labs/Mics: Laboratory Tests 08/08/17 0504: Anion Gap 9, Estimated GFR 18 L, Glucose 114 H, Calcium 8.7, Phosphorus 5.1 H , Magnesium 2.2, Total Bilirubin 0.4, AST 14, ALT 23, Albumin 2.9 L, CBC w Diff NO MAN DIFF REQ, RBC 3.79 L, MCV 80.1 L, MCH 26.4 L, MCHC 33.0, RDW 16.6 H, MPV 9.7, Gran % 73.6, Lymphocytes % 15.1 L, Monocytes % 6.9, Eosinophils % 3.8, Basophils % 0.6, Absolute Granulocytes 5.7, Absolute Lymphocytes 1.2, Absolute Monocytes 0.5, Absolute Eosinophils 0.3, Absolute Basophils 0 Assessment/Plan Assessment/Plan 1. Paroxysmal atrial fibrillation 2. Chronic HFpEF 3. Status post carotid endarterectomy 4. Uncontrolled hypertension 5. Sinus bradycardia Plan: * Discontinue clonidine because of concern that it is exacerbating bradycardia * Continue other hypertension medications * Continue to monitor on telemetry * N.p.o. after midnight for possible permanent pacemaker tomorrow if need Continue telemetry? Yes
--- NOTE | 2017-08-09 12:46 | PN- Vascular Surgery ---
Surgical Brief Attending Note Brief Attending Note: VASCULAR ATTENDING NOTE: Pt. now POD #7 s/p L. CEA. Here now for bradycardia/BP issues. States "I want to go home." PE: AF/VSS Neck: C/D/I Neuro: No major defecits A/P Transfer to medicine or D/C home on Eliquis Stable from CEA standpoint OOB-->amb. F/u next week to repeat US to R/O [place]
[2017-08-09 14:09] VITALS: BP 132/50
[2017-08-09 22:03] VITALS: BP 150/70
[2017-08-10 06:00] VITALS: BP 190/60
--- NOTE | 2017-08-10 08:01 | PN- Vascular Surgery ---
Subjective Subjective: Feels well. Eager to go home today. Per nursing, HR has been in the 60s after discontinuing clonodine yesterday. She offers no other complaints. Objective Vital Signs and I&Os Vital Signs Date Time Temp Pulse Resp B/P B/P Pulse O2 O2 Flow FiO2 Mean Ox Delivery Rate 08/10 0837 53 170/68 08/10 0934 54 170/68 08/10 0709 58 188/90 08/10 0600 98.4 66 20 190/60 96 / 2203 97.8 58 20 150/70 100 / 2116 58 152/74 08/09 1409 97.6 36 18 132/50 94 Room Air Intake & Output 08/10 0808/10 0000 08/09 1600 08/09 0808/09 0000 Intake Total 150 240 420 100 30 Output Total 200 400 Balance 150 240 420 -100 -370 Intake, IV 150 20 Intake, Oral 0 240 400 100 30 Number 1 Bowel Movements Output, Urine 200 400 Patient 113 lb 116 lb Weight Physical Exam: Gen - NAD Neck - L facial palsy improving, dressing c/d/i Cardiac - S1S2 + murmur Lungs - CTAB Ext - no edema or calf tenderness, LE and UE strength intact, sensory intact Current Medications: Current Medications Sig/Antoinette Start time Last Medication Dose Route Stop Time Status Admin Amlodipine Besylate 10 MG DAILY@0600 / 0600 AC 08/10 PO 0709 Apixaban 2.5 MG BID 08/10 1000 AC 08/10 PO 1002 Apixaban 2.5 MG BID 08/03 1000 DC 08/09 PO 0933 Aspirin Buffered 81 MG DAILY 08/10 1000 AC 08/10 PO 1002 Aspirin Buffered 81 MG DAILY 08/06 1000 DC 08/09 PO 0933 Atorvastatin Calcium 80 MG 1700 08/02 1700 AC 08/09 PO 1612 Benzocaine/Menthol 1 ANDREA Q2P PRN 08/03 2014 AC PO Clonidine 0.3 MG TID 08/08 1600 DC 08/09 PO 0932 Dextrose/Lactated 1,000 ML Q20H / 0000 AC 08/10 Ringer's IV 0300 Doxazosin Mesylate 4 MG BID 08/03 2200 AC 08/10 PO 0935 Epoetin Mario 20,000 U ONCE ONE 08/09 1300 DC 08/09 SC 08/09 1301 1611 Furosemide 40 MG QAM 08/07 1000 AC 08/10 PO 0934 Furosemide 20 MG QPM 08/06 2200 AC 08/09 PO 2115 Glycerin 2 SPRAY Q2P PRN 08/03 2130 AC 08/03 PO 2310 Hydroxychloroquine 200 MG DAILY 08/02 1515 AC 08/10 Sulfate PO 0936 Isosorbide 120 MG DAILY 08/03 1000 AC 08/10 Mononitrate PO 0934 Magnesium Oxide 400 MG DAILY 08/03 1643 AC 08/10 PO 0936 Minoxidil 5 MG DAILY 08/09 1000 AC 08/10 PO 0934 Omeprazole 40 MG DAILY AC 08/02 1507 AC 08/10 PO 0709 Ondansetron HCl 4 MG Q6P PRN 08/02 1215 AC IV Phenol 2 SPRAY Q2P PRN 08/04 1115 AC 08/05 EXT 2251 Senna/Docusate Sodium 2 TAB DAILY NEEDED PRN 08/06 1300 AC PO Sertraline HCl 25 MG DAILY 08/02 1515 AC 08/10 PO 0936 Spironolactone 50 MG DAILY 08/05 1541 AC 08/10 PO 0935 Valsartan 160 MG BID 08/07 2200 AC 08/10 PO 0937 Assessment/Plan Assessment/Plan 77 F POD8 s/p L CEA, with complicated postop course due to hypertension and bradycardia, now much improved on PO meds, no indication for pacemaker at this time Cardiac diet, d/c IVF Resume eliquis/asa Resume BP meds, adjustments made per nephro/cardiology Clonidine and carvedilol discontinued, do not continue upon at d/c Minoxidil 5 mg started yesterday, increase to 10 mg daily on d/c Give Minoxidil 5 mg po once Lasix decreased to 40 mg po on d/c Epoetin 20,000 units recieved yesterday F/u with Dr. Mathews in 1 week F/u Dr. Hillman, nephrology on 09/09 at 1:30pm Outpt labs on 09/06 or 09/07 D/c w/ [facility] D/w Dr. Mcfarlane Core Measures Venous Thromboembolism VTE Risk Factors Surgery No Mechanical VTE Prophylaxis d/t N/A MechProphylax Ordered No VTE Pharm Prophylaxis d/t NA PharmProphylax ordered
[2017-08-10 09:37] VITALS: BP 170/68
--- NOTE | 2017-08-10 10:02 | PN- Cardiology ---
Subjective Subjective: Heart rate has improved to the 50s and 60s after discontinuation of clonidine. Blood pressure continues to be elevated. No chest pain. No palpitations. No shortness of breath. No diaphoresis. Objective Vital Signs and I&Os Vital Signs Date Time Temp Pulse Resp B/P B/P Pulse O2 O2 Flow FiO2 Mean Ox Delivery Rate 08/10 936 53 170/68 08/10 0934 54 170/68 08/10 0709 58 188/90 08/10 0600 98.4 66 20 190/60 96 08/09 2203 97.8 58 20 150/70 100 08/09 2116 58 152/74 08/09 1409 97.6 36 18 132/50 94 Room Air Intake & Output 08/10 0808/10 0000 08/09 1600 08/09 0808/09 0000 Intake Total 150 240 420 100 30 Output Total 200 400 Balance 150 240 420 -100 -370 Intake, IV 150 20 Intake, Oral 0 240 400 100 30 Number 1 Bowel Movements Output, Urine 200 400 Patient 113 lb 116 lb Weight Physical Exam: Gen: The patient is in no acute distress HEENT: Normal nose, ears, and oropharynx. Pupils equal bilaterally. Conjunctiva normal. Neck: Supple with no JVD, no masses, and no thyromegaly Lungs: Clear to auscultation with normal respiratory effort Heart: RRR, S1, S2, 1/6 systolic murmurs. No peripheral edema, 2+ pulses in the lower extremities bilaterally Abdomen: Soft, nontender, no masses. No hepatomegaly. No splenomegaly Extremities: No clubbing or cyanosis. Normal muscle strength in the upper and lower extremities. Skin: Normal skin turgor with no skin ulcers or lesions noted. Neuro: Cranial nerves intact. Sensation intact Current Medications: Current Medications Sig/Antoinette Start time Last Medication Dose Route Stop Time Status Admin Amlodipine Besylate 10 MG DAILY@0600 08/08 0600 AC 08/10 PO 0709 Apixaban 2.5 MG BID 08/03 999 DC 08/09 PO 0933 Aspirin Buffered 81 MG DAILY 08/06 1000 DC 08/09 PO 0933 Atorvastatin Calcium 80 MG 1700 08/02 1700 AC 08/09 PO 1612 Benzocaine/Menthol 1 ANDREA Q2P PRN 08/03 2014 AC PO Clonidine 0.3 MG TID 08/09 1599 DC 08/09 PO 0932 Dextrose/Lactated 1,000 ML Q20H 08/10 0000 AC 08/10 Ringer's IV 0300 Doxazosin Mesylate 4 MG BID 08/03 2200 AC 08/10 PO 0935 Epoetin Mario 20,000 U ONCE ONE 08/09 1300 DC 05 SC 08/09 1301 1611 Furosemide 40 MG QAM 08/07 1000 AC 08/10 PO 0934 Furosemide 20 MG QPM 08/06 2200 AC 08/09 PO 2115 Glycerin 2 SPRAY Q2P PRN 08/03 2130 AC 08/03 PO 2310 Hydroxychloroquine 200 MG DAILY 08/02 1515 AC 08/10 Sulfate PO 0936 Isosorbide 120 MG DAILY 08/03 1000 AC 08/10 Mononitrate PO 0934 Magnesium Oxide 400 MG DAILY 08/03 1643 AC 08/10 PO 0936 Minoxidil 5 MG DAILY 08/09 1000 AC 08/10 PO 0934 Omeprazole 40 MG DAILY AC 08/02 1507 AC 08/10 PO 0709 Ondansetron HCl 4 MG Q6P PRN 08/02 1215 AC IV Phenol 2 SPRAY Q2P PRN 08/04 1115 AC 08/05 EXT 2251 Senna/Docusate Sodium 2 TAB DAILY NEEDED PRN 08/06 1300 AC PO Sertraline HCl 25 MG DAILY 08/02 1515 AC 08/10 PO 0936 Spironolactone 50 MG DAILY 08/05 1541 AC 08/10 PO 0935 Valsartan 160 MG BID 08/07 2200 AC 08/10 PO 0937 Assessment/Plan Assessment/Plan Assessment: 1. Paroxysmal atrial fibrillation 2. Chronic HFpEF 3. Status post carotid endarterectomy 4. Uncontrolled hypertension 5. Sinus bradycardia Plan: * Increase minoxidil to 10 mg daily for additional blood pressure control * Keep off clonidine and carvedilol given sinus bradycardia * Cleared for discharge from cardiac standpoint. * Follow up in the office with Dr. Mathews within 1 week Continue telemetry? Yes
[2017-08-10] MEDS ORDERED: DOXAZOSIN MESYLA2 M1 PO (10:05)
--- NOTE | 2017-08-10 10:11 | Surgical Discharge Summary ---
Visit Information Visit Dates Admission Date: 08/02/17 Discharge Date: 08/10/17 History of Present Illness Chief Complaint: Left carotid stenosis status post left carotid endarterectomy Medical History Blood Transfusion Hx: Yes Neurological: LUMBOSACRAL NEURITIS MACULAR EDEMA EENT: cataracts Cardiovascular: AFIB, CAD, diastolic CHF, hypertension, hyperlipidemia, PVD, ANEMIA Respiratory: COPD Gastrointestinal: GERD, POLYPS Hepatic: NONE Renal: chronic kidney disease Musculoskeletal: chronic back pain, gout, rheumatoid arthritis, SLE with hydralazine Psychiatric: NONE Blood Disorders: anemia Cancer(s): NONE 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 Home Who Do You Live With? Family Services at Home: Nursing What is Your Primary Language? Romanian Review of Systems: See [facility] Hospital Course Course Attending Physician: Eduardo Mcfarlane MD Primary Care Physician: Guido Amador MD Hospital Course: Patient was admitted following her left carotid endarterectomy, she was placed in the ICU. She remained in the ICU for several days due to uncontrolled hypertension and worsening of her chronic renal failure. Cardiology consult and nephrology consult was called. Patient was seen by Dr. Harris and Dr. Mathews as well as Dr. Hillman from nephrology. She also had experience bradycardia which was felt to be secondary to addition to all of her blood pressure medication. Her clonidine was stopped, Her medications were adjusted and after several days her blood pressure stabilized and bradycardia resolved. She did not have any significant neurovascular compromise, CT of her head was unremarkable, clinically she is doing well. She did have some difficulty swallowing and a modified barium swallow was ordered which will require repeat as outpatient. She was seen and evaluated by speech therapy as well. Her pain is controlled and she was deemed stable for outpatient follow-up. Complications: Postoperative hypertension, uncontrolled and bradycardia Acute on chronic renal insufficiency Allergies: Coded Allergies: diltiazem (From CARDIZEM) (UNKNOWN 07/30/17) dronedarone (From MULTAQ) (SEVERE DIARRHEA 07/30/17) hydralazine (LUPUS 07/30/17) lisinopril (TONGUE SWELLING 07/30/17) rivaroxaban (From XARELTO) (UNKNOWN 07/30/17) minoxidil (HIRSUTISM 08/08/17) Disposition Summary Disposition Principal Diagnosis: Left carotid stenosis Additional Diagnosis: Status post left carotid endarterectomy Postoperative hypertension urgency Bradycardia Acute on chronic renal insufficiency Discharge Disposition: home health services Discharge Instructions General Discharge Information Code Status: Full Code Patient's Diet: Regular, low salt Patient's Activity: Activity as tolerated, no excessive physical activity or physical exertion Follow-Up Instructions/Appts: To follow-up with Dr. Mcfarlane in 1 week for repeat ultrasound and wound check. Dr. Mathews in one week Dr. Hillman in 2 weeks Medications at Discharge Discharge Medications: Stop taking the following medications: Doxazosin (Cardura) 1 MG TABLET ORAL TWICE DAILY Clonidine HCl (Clonidine HCl) 0.3 MG TABLET ORAL TWICE DAILY Furosemide (Lasix) 20 MG TABLET ORAL DAILY Carvedilol (Coreg) 3.125 MG TABLET ORAL TWICE DAILY Continue taking these medications: Amlodipine Besylate (Norvasc) 10 MG TABLET 1 Tablet ORAL DAILY Comments: Last Taken:08/10/17 Time:0600 Rosuvastatin Calcium (Crestor) 20 MG TABLET 1 Tablet ORAL DAILY Comments: Last Taken:08/09/17 Time:5PM LIPITOR Pantoprazole Sodium (Protonix) 40 MG TABLET.DR 1 Tablet ORAL DAILY Comments: Last Taken:08/10/17 Time:0600 Hydroxychlorquine (Plaquenil) 200 MG TABLET 1 Tablet ORAL DAILY Comments: Last Taken:08/10/17 Time:1000 Isosorbide Mononitrate (Isosorbide Mononitrate ER) 120 MG TAB.ER.24H 1 Tablet ORAL DAILY Comments: Last Taken:08/10/17 Time:1000 Valsartan (Valsartan) 160 MG TABLET 1 Tablet ORAL TWICE DAILY Comments: Last Taken:08/10/17 Time:1000 Apixaban (Eliquis) 2.5 MG TABLET 1 Tablet ORAL TWICE DAILY Comments: Last Taken:08/10/17 Time:1000 Sertraline HCl (Zoloft) 25 MG TABLET 1 Tablet ORAL DAILY Comments: Last Taken:08/10/17 Time:1000 Start taking the following new medications: Furosemide (Lasix) 40 MG TABLET 40 Milligram ORAL DAILY Qty = 30 No Refills Instructions: PER DR. HILLMAN Comments: Last Taken:08/10/17 Time:1000 Doxazosin Mesylate (Doxazosin Mesylate) 2 MG TABLET 4 Milligram ORAL TWICE DAILY Qty = 120 No Refills Comments: Last Taken:08/10/17 Time:1000 Minoxidil (Minoxidil) 10 MG TABLET 1 Tablet ORAL DAILY Qty = 30 No Refills
--- NOTE | 2017-08-10 12:25 | PN- Nephrology ---
Assessment/Plan Nephrology Assessment: Stage IV CKD - baseline Cr normally around 3. 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 HTN - Blood pressure continues to be labile. Clonidine being held for bradycardia - HR does seem to be a bit better - and minoxidil increased. At this point, I agree that her BP management can be done as an outpatient. Renal angiogram considered but patient refusing (and I am not sure that it's worth the risk of contrast induced nephropathy at this time). Suggestion: -Pt will need to f/u with PCP and/or Cards within a week to monitor BP -Would discharge on lasix at 40mg PO daily in addition to other aforementioned anti-hypertensives Pt has appt to see me on 09/09 at 1:30pm - she has an appt at 1:45pm on the same day to get her next dose of Epogen - will need labs at least 2 days prior to the appointment Please call [phone] with ?'s Subjective Subjective: Feeling OK Wants to go home Clonidine stopped and minoxidil increased to 10mg - BP continues to be labile - 130's-190's HR better - 50's-60's Objective Vital Signs and I&Os Vital Signs Date Time Temp Pulse Resp B/P B/P Pulse O2 O2 Flow FiO2 Mean Ox Delivery Rate 08/10 0937 53 170/68 / 0934 54 170/68 / 0709 58 188/90 / 0600 98.4 66 20 190/60 96 / 2203 97.8 58 20 150/70 100 03/05 2116 58 152/74 /05 1409 97.6 36 18 132/50 94 Room Air Intake & Output 08/10 1600 / 0400 08/09 1600 / 0400 08/08 1600 / 0400 Intake Total 150 240 520 30 500 380 Output Total 200 400 400 350 Balance 150 240 320 -370 100 30 Intake, IV 150 20 20 Intake, Oral 0 240 500 30 480 380 Number 1 Bowel Movements Output, Urine 200 400 400 350 Patient 113 lb 116 lb Weight Physical Exam: Gen - OK appearing HEENT - L facial droop CV - RRR, no m/r/g Chest - clear, no w/r/r Abd - soft, NTND Ext - warm, no edema Neuro - AOX3, L facial droop Current Medications: Current Medications Sig/Antoinette Start time Last Medication Dose Route Stop Time Status Admin Amlodipine Besylate 10 MG DAILY@0600 08/08 0600 AC 08/10 PO 0709 Apixaban 2.5 MG BID 08/10 1000 AC 08/10 PO 1002 Apixaban 2.5 MG BID 08/03 1000 DC 08/09 PO 0933 Aspirin Buffered 81 MG DAILY 08/10 1000 AC 08/10 PO 1002 Aspirin Buffered 81 MG DAILY 08/06 1000 DC 08/09 PO 0933 Atorvastatin Calcium 80 MG 1700 08/02 1700 AC 08/09 PO 1612 Benzocaine/Menthol 1 ANDREA Q2P PRN 08/03 2015 AC PO Clonidine 0.3 MG TID 08/08 1600 DC 08/09 PO 0932 Dextrose/Lactated 1,000 ML Q20H 08/10 0000 DC 08/10 Ringer's IV 0300 Doxazosin Mesylate 4 MG BID 08/03 2200 AC 08/10 PO 0935 Epoetin Mario 20,000 U ONCE ONE 08/09 1300 DC 08/09 SC 08/09 1301 1611 Furosemide 40 MG QAM 08/07 1000 AC 08/10 PO 0934 Furosemide 20 MG QPM 08/06 2200 AC 08/09 PO 2115 Glycerin 2 SPRAY Q2P PRN 08/03 2130 AC 08/03 PO 2310 Hydroxychloroquine 200 MG DAILY 08/02 1515 AC 08/10 Sulfate PO 0936 Isosorbide 120 MG DAILY 08/03 1000 AC 08/10 Mononitrate PO 0934 Magnesium Oxide 400 MG DAILY 08/03 1643 AC 08/10 PO 0936 Minoxidil 5 MG ONCE ONE 08/10 1015 DC PO 08/10 1016 Minoxidil 5 MG DAILY 08/09 1000 AC 08/10 PO 0934 Omeprazole 40 MG DAILY AC 08/02 1507 AC 08/10 PO 0709 Ondansetron HCl 4 MG Q6P PRN 08/02 1215 AC IV Phenol 2 SPRAY Q2P PRN 08/04 1115 AC 08/05 EXT 2251 Senna/Docusate Sodium 2 TAB DAILY NEEDED PRN 08/06 1300 AC PO Sertraline HCl 25 MG DAILY 08/02 1515 AC 08/10 PO 0936 Spironolactone 50 MG DAILY 08/05 1541 AC 08/10 PO 0935 Valsartan 160 MG BID 08/07 2200 AC 08/10 PO 0937 Results Pertinent Lab Results: Laboratory Tests 08/08 0504 Chemistry Sodium (137 - 145 mmol/L) 136 L Potassium (3.5 - 5.1 mmol/L) 4.2 Chloride (98 - 107 mmol/L) 100 Carbon Dioxide (22 - 30 mmol/L) 27 Anion Gap (5 - 16) 9 BUN (7 - 17 mg/dL) 37 H Creatinine (0.5 - 1.0 mg/dL) 2.6 H Estimated GFR (>60 ml/min) 18 L Glucose (65 - 99 mg/dL) 114 H Calcium (8.4 - 10.2 mg/dL) 8.7 Phosphorus (2.5 - 4.5 mg/dL) 5.1 H Magnesium (1.6 - 2.3 mg/dL) 2.2 Total Bilirubin (0.2 - 1.3 mg/dL) 0.4 AST (14 - 36 U/L) 14 ALT (9 - 52 U/L) 23 Albumin (3.5 - 5.0 g/dL) 2.9 L Hematology CBC w Diff NO MAN DIFF REQ WBC (4.8 - 10.8 /CUMM) 7.8 RBC (4.20 - 5.40 /CUMM) 3.79 L Hgb (12.0 - 16.0 G/DL) 10.0 L Hct (37 - 47 %) 30.4 L MCV (81.0 - 99.0 FL) 80.1 L MCH (27.0 - 31.0 PG) 26.4 L MCHC (33.0 - 37.0 G/DL) 33.0 RDW (11.5 - 14.5 %) 16.6 H Plt Count (130 - 400 /CUMM) 200 MPV (7.4 - 10.4 FL) 9.7 Gran % (42.2 - 75.2 %) 73.6 Lymphocytes % (20.5 - 51.1 %) 15.1 L Monocytes % (1.7 - 9.3 %) 6.9 Eosinophils % (0 - 5 %) 3.8 Basophils % (0.0 - 2.0 %) 0.6 Absolute Granulocytes (1.4 - 6.5 /CUMM) 5.7 Absolute Lymphocytes (1.2 - 3.4 /CUMM) 1.2 Absolute Monocytes (0.10 - 0.60 /CUMM) 0.5 Absolute Eosinophils (0.0 - 0.7 /CUMM) 0.3 Absolute Basophils (0.0 - 0.2 /CUMM) 0 Imaging/Other Studies: None new
[2017-08-10] MEDS ORDERED: MINOXIDIL10 M1 PO (12:52)
--- NOTE | 2017-08-10 13:59 | PN- Vascular Surgery ---
Surgical Brief Attending Note Brief Attending Note: VASCULAR ATTENDING NOTE: POD #8 from Marybeth MCMAHAN. Pt. stable for d/c home. October/08/20.
== END 2017-08-10 14:45 | disposition home health service (06) | DRG 38 ==
LOC: SDA 02:12 → CRI 02:12 → 1NO 02:12 → ENRESERV 11:03 → ENTRNSPT 11:22 → EDTRNSPTSTS 11:25 → EDTRNSPT 11:25 → CRI 11:45 → CMPTRNSPT 11:46 → 1NO 08-08 19:48
PROVIDERS: Nurse Practitioner; Physician Assistant; Physician Assistant Surgical
PROC: 03CJ0ZZ Extirpation of Matter from Left Common Carotid Artery, Open Approach (ICD-10-PCS; principal; 2017-08-02)
PROC: 03UJ0KZ Supplement Left Common Carotid Artery with Nonautologous Tissue Substitute, Open Approach (ICD-10-PCS; 2017-08-02)
DX: I65.23 Occlusion and stenosis of bilateral carotid arteries (principal); N18.4 Chronic kidney disease, stage 4 (severe); S04.52XA Injury of facial nerve, left side, initial encounter; M32.9 Systemic lupus erythematosus, unspecified; I11.0 Hypertensive heart disease with heart failure; I48.0 Paroxysmal atrial fibrillation; I50.32 Chronic diastolic (congestive) heart failure; I13.0 Hypertensive heart and chronic kidney disease with heart failure and stage 1 through stage 4 chronic kidney disease, or unspecified chronic kidney disease; G97.82 Other postprocedural complications and disorders of nervous system; I16.0 Hypertensive urgency; D50.9 Iron deficiency anemia, unspecified; M06.9 Rheumatoid arthritis, unspecified; T50.905A Adverse effect of unspecified drugs, medicaments and biological substances, initial encounter; Z79.01 Long term (current) use of anticoagulants; I97.3 Postprocedural hypertension; R00.1 Bradycardia, unspecified; R80.8 Other proteinuria; I73.9 Peripheral vascular disease, unspecified; E78.5 Hyperlipidemia, unspecified; D64.9 Anemia, unspecified; K21.9 Gastro-esophageal reflux disease without esophagitis; G89.29 Other chronic pain; M54.9 Dorsalgia, unspecified; Z96.653 Presence of artificial knee joint, bilateral
CPT/HCPCS: 1NP; CCU; 36415; 74230; 82436; 87804; 87804-59; 88304; 93005; 93010; 97110-GO; 97112-GO; 97116-GO; 97162-GP; 97530-GO; C9399; J0131; J0690; J0885-EC; J1644; J3490; J7060